=== PATIENT | male | born 1935 | race Two or more races ===

== ENCOUNTER 2016-09-19 09:32 | Emergency (ER) | payer MEDICARE ==
[2016-09-19] MEDS ORDERED: SODIUM CHLORIDE 0.9% 500 ML IV STA (10:38)
[2016-09-19] MEDS ORDERED: ONDANSETRON 4 MG/2 ML VIAL IVP STA (10:38)
[2016-09-19] MEDS ORDERED: PANTOPRAZOLE 40 MG/10 ML VIAL IVP STA (10:38)
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
[2016-09-19 11:01] LABS: Basophils % (A) 0 %; CH 31.1; CHCM 33.7; Eosinophils % (A) 0 %; HCT 36.6 % (39.0-53.0); HDW 2.54; HGB 12.3 gm/dL (13.0-17.5); Luc # (Auto) 0.05; Luc % (Auto) 1; Lymphocytes # (A) 0.5 k/uL (1.0-4.8); Lymphocytes % (A) 11 %; MCH 31.1 pg (25.0-35.0); MCHC 33.6 g/dL (31.0-37.0); MCV 92.5 fL (80.0-100.0); Mean Platelet Volume 6.7; Monocytes # (A) 0.3 k/uL (0-1.0); Monocytes % (A) 6 %; Neutrophils # (A) 4.1 k/uL (1.3-7.7); Neutrophils % (A) 82 %; RBC 3.96 m/uL (4.30-5.90); RDW 13.1 % (11.5-15.5); WBC (Perox) 5.41
[2016-09-19 11:05] LABS: Appearance,Urine Cloudy (Clear); Bacteria,Urine Moderate /hpf; Bilirubin,Urine Negative (Negative); Glucose,Urine (UA) Negative (Negative); Ketones,Urine Negative (Negative); Leukocyte Esterase,Urine Large (Negative); Mucus,Urine Rare /hpf; Nitrite,Urine Negative (Negative); Particle Count 87741; Protein,Urine Negative (Negative); RBC,Urine 2 /hpf (0-5); Specific Gravity,Urine 1.014 (1.001-1.035); Squamous Epithelial Cell,Urine 2 /hpf (0-4); UA Billing (MACRO vs. MICRO) MICRO; WBC,Urine 29 /hpf (0-5)
--- NOTE | 2016-09-19 11:05 | XR ---
EXAMINATION TYPE: XR abdomen 2V DATE OF EXAM: 09/19/2016 10:58 AM COMPARISON: NONE HISTORY: Mid abdominal pain TECHNIQUE: Single supine KUB image of the abdomen is obtained. FINDINGS: The osseous structures are intact. The bowel gas pattern is nonspecific. Hypertrophic change of the spine noted. Subsegmental changes at both lung bases. IMPRESSION: 1. Nonspecific abdomen. 2. Left basilar atelectasis or infiltrate. Possible underlying nodule.
[2016-09-19 11:09] LABS: ALT 252 U/L (21-72); AST 293 U/L (17-59); Alkaline Phosphatase 158 U/L (38-126); Amylase 48 U/L (30-110); Anion Gap 11 mmol/L; Blood Urea Nitrogen 19 mg/dL (9-20); Calcium 9.4 mg/dL (8.4-10.2); Carbon Dioxide 31 mmol/L (22-30); Chloride 100 mmol/L (98-107); Glucose 135 mg/dL (74-99); Non-African American GFR(MDRD) >60 (>60 ml/min/1.73 sqM); Potassium 4.1 mmol/L (3.5-5.1); Sodium 142 mmol/L (137-145); Total Bilirubin 3.2 mg/dL (0.2-1.3); Total Protein 7.1 g/dL (6.3-8.2)
--- NOTE | 2016-09-19 11:42 | XR ---
EXAMINATION TYPE: XR chest 2V DATE OF EXAM: 09/19/2016 11:27 AM COMPARISON: NONE HISTORY: Pain FINDINGS: There is a 3 cm mass in the left lower lobe with left lower lobe subsegmental consolidation and small effusion. Cardiomegaly noted. No pneumothorax or interstitial edema. Arthropathy of the shoulders. Degenerative hypertrophic change of the spine. IMPRESSION: 1. 3 cm left lower lobe lung mass 2. Left lower lobe infiltrate or atelectasis.
[2016-09-19] MEDS ORDERED: HYDROmorphone 1 MG/ML 1 ML SYRINGE IVP STA (12:28)
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
[2016-09-19 13:23] VITALS: BP 124/78; PULSE 66; RESP 18; TEMP 98.8
[2016-09-20 11:17] LABS: Cholesterol 147 mg/dL (<200); HDL Cholesterol 68 mg/dL (40-60); Triglycerides 37 mg/dL (<150)
[2016-09-20 11:48] LABS: Prostate Specific Antigen 8.37 ng/mL (0.00-4.00)
[2016-09-20 13:01] LABS: Hemoglobin A1C 5.5 % (4.2-6.1)
== END 2016-09-19 13:30 | disposition home or self-care (01) ==
LOC: EC 09:32
DX: R91.8 Other nonspecific abnormal finding of lung field (principal); D49.511 Neoplasm of unspecified behavior of right kidney; Z79.899 Other long term (current) drug therapy; Z91.040 Latex allergy status; Z87.891 Personal history of nicotine dependence; N42.9 Disorder of prostate, unspecified; I51.89 Other ill-defined heart diseases; Z87.442 Personal history of urinary calculi; R74.8 Abnormal levels of other serum enzymes
CPT/HCPCS: 96374; 96375 ×2; 99284; 36415; 84153; 80061; 80053; 82150; 83036; 83605; 83690; 85025; 81001; 87086; 87077; 87186; 71020; 74020; 76705; J2405; J1170; C9113

== ENCOUNTER → 2016-10-28 | Outpatient (CLI) | payer MEDICARE ==
[2016-10-28 10:31] LABS: ALT 25 U/L (21-72); AST 21 U/L (17-59); Alkaline Phosphatase 68 U/L (38-126); Anion Gap 11 mmol/L; Blood Urea Nitrogen 25 mg/dL (9-20); Calcium 9.1 mg/dL (8.4-10.2); Carbon Dioxide 27 mmol/L (22-30); Chloride 104 mmol/L (98-107); Glucose 101 mg/dL (74-99); Non-African American GFR(MDRD) >60 (>60 ml/min/1.73 sqM); Potassium 4.2 mmol/L (3.5-5.1); Sodium 142 mmol/L (137-145); Total Bilirubin 1.2 mg/dL (0.2-1.3); Total Protein 7.3 g/dL (6.3-8.2)
== END | disposition home or self-care (01) ==
LOC: LABWHC1 09:35
PROVIDERS: ATTEND Family Medicine
DX: R73.01 Impaired fasting glucose (principal); R94.5 Abnormal results of liver function studies
CPT/HCPCS: 36415; 80053; 83036

== ENCOUNTER → 2017-01-06 | Outpatient (CLI) | payer MEDICARE ==
[2017-01-06 10:53] LABS: ALT 26 U/L (21-72); AST 22 U/L (17-59); Alkaline Phosphatase 59 U/L (38-126); Anion Gap 9 mmol/L; Bilirubin, Delta 0.4 mg/dL (0.0-0.2); Blood Urea Nitrogen 27 mg/dL (9-20); Calcium 9.5 mg/dL (8.4-10.2); Carbon Dioxide 27 mmol/L (22-30); Chloride 106 mmol/L (98-107); Glucose 99 mg/dL (74-99); Non-African American GFR(MDRD) >60 (>60 ml/min/1.73 sqM); Potassium 4.9 mmol/L (3.5-5.1); Sodium 142 mmol/L (137-145); Total Bilirubin 1.3 mg/dL (0.2-1.3); Total Protein 7.4 g/dL (6.3-8.2)
[2017-01-06 13:13] LABS: Hemoglobin A1C 5.9 % (4.2-6.1)
== END | disposition home or self-care (01) ==
LOC: LABWHC1 09:18
PROVIDERS: ATTEND Family Medicine
DX: R73.01 Impaired fasting glucose (principal); R94.5 Abnormal results of liver function studies
CPT/HCPCS: 36415; 80048; 80076; 83036

== ENCOUNTER 2017-07-19 09:44 | Inpatient (IN) | payer MEDICARE ==
[2017-07-19] MEDS ORDERED: SODIUM CHLORIDE 0.9% 1,000 ML IV STA (10:34)
[2017-07-19] MEDS ORDERED: VANCOMYCIN IV PER PHARMACY 1 EACH MISC MISCELLANE PRN (10:42)
[2017-07-19] MEDS ORDERED: VANCOMYCIN 1,500 MG in SODIUM CHLORIDE 0.9% 250 ML IVPB ONE (11:00)
[2017-07-19] MEDS ORDERED: ONDANSETRON 4 MG/2 ML VIAL IVP STA (11:22)
[2017-07-19] MEDS ORDERED: HYDROmorphone 1 MG/ML 1 ML SYRINGE IVP STA (11:22)
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
--- NOTE | 2017-07-19 11:22 | XR ---
EXAMINATION TYPE: XR chest 2V DATE OF EXAM: 07/19/2017 COMPARISON: Chest x-ray September 19, 2016 HISTORY: Leg edema per order. TECHNIQUE: Frontal and lateral views of the chest are obtained. FINDINGS: There is stable 3 cm left lingular round mass. There is new small right pleural effusion an d associated right basilar atelectasis and/or infiltrate. The cardiac silhouette size is stable and upper limits of normal. 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 IMPRESSION: New small right pleural effusion and associated right basilar atelectasis and/or infiltr ate. Stable 3 cm lingular round mass.
[2017-07-19 11:34] LABS: Calcium 8.5 mg/dL (8.4-10.2); Total Bilirubin 0.4 mg/dL (0.2-1.3); Total Protein 5.3 g/dL (6.3-8.2)
[2017-07-19 11:37] LABS: Basophils % (A) 0 %; CH 30.9; CHCM 30.6; Eosinophils # (A) 0.4 k/uL (0-0.7); Eosinophils % (A) 3 %; HCT 22.9 % (39.0-53.0); HDW 2.75; Hypochromasia Moderate; Luc # (Auto) 0.46; Luc % (Auto) 4; Lymphocytes % (A) 8 %; MCH 30.8 pg (25.0-35.0); MCHC 30.3 g/dL (31.0-37.0); MCV 101.9 fL (80.0-100.0); Macrocytosis Slight; Mean Platelet Volume 6.9; Monocytes # (A) 0.8 k/uL (0-1.0); Monocytes % (A) 7 %; Neutrophils # (A) 9.8 k/uL (1.3-7.7); Neutrophils % (A) 78 %; RBC 2.25 m/uL (4.30-5.90); WBC 12.5 k/uL (3.8-10.6); WBC (Perox) 12.65
[2017-07-19 11:44] LABS: Potassium 6.3 mmol/L (3.5-5.1)
[2017-07-19 11:45] LABS: HGB 6.9 gm/dL (13.0-17.5)
[2017-07-19] MEDS ORDERED: INSULIN REGULAR 100 UNIT/ML VIAL IV ONE ×3 (11:47→23:02)
[2017-07-19] MEDS ORDERED: DEXTROSE 50%-WATER 50 ML SYRINGE IVP STA ×2 (11:47→18:51)
[2017-07-19] MEDS ORDERED: NALOXONE 0.4 MG/ML 1 ML VIAL IV PRN (11:59)
[2017-07-19] MEDS ORDERED: ONDANSETRON 4 MG/2 ML VIAL IVP PRN (11:59)
[2017-07-19] MEDS ORDERED: HYDROmorphone 0.5 MG/0.5 ML SYRINGE IVP PRN (11:59)
[2017-07-19] MEDS ORDERED: CALCIUM GLUCONATE 1,000 MG in SODIUM CHLORIDE 0.9% 100 ML IVPB ONE ×3 (12:00→23:30)
[2017-07-19 14:21] LABS: Appearance,Urine Clear (Clear); Bilirubin,Urine Negative (Negative); Glucose,Urine (UA) Negative (Negative); Ketones,Urine Negative (Negative); Leukocyte Esterase,Urine Negative (Negative); Mucus,Urine Rare /hpf; Nitrite,Urine Negative (Negative); Particle Count 890; Protein,Urine Negative (Negative); RBC,Urine 50 /hpf (0-5); Specific Gravity,Urine 1.011 (1.001-1.035); Squamous Epithelial Cell,Urine <1 /hpf (0-4); UA Billing (MACRO vs. MICRO) MICRO; Urobilinogen,Urine <2.0 mg/dL (<2.0); WBC,Urine 2 /hpf (0-5)
[2017-07-19] MEDS ORDERED: IPRATROPIUM-ALBUTEROL 3 ML NEB INHALATION PRN (14:35)
[2017-07-19] MEDS: IPRATROPIUM-ALBUTEROL 3 ML NEB INHALATION SCH ×2 (15:19→19:28)
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
--- NOTE | 2017-07-19 15:42 | US ---
EXAMINATION TYPE: US kidneys/renal and bladder DATE OF EXAM: 07/19/2017 COMPARISON: CLINICAL HISTORY: renee. elevated labs. poor historian. EXAM MEASUREMENTS: Right Kidney: 13.9 x 6.2 x 6.4 cm Left Kidney: 12.8 x 5.5 x 6.6 cm Right Kidney: Enlarged. Mid/lower pole complex vascular lesion seen in anterior cortical region = 5.9 x 6.5 x 5.8 cm. Mid simple cystic appearing lesion = 1.1 cm Left Kidney: Slightly enlarged. Multiple simple cystic appearing lesions seen in renal cortex. Large st measured: 1= 1.8 cm 2= 2.6 cm. Possible cortical thinning. Bladder: echogenic focus with shadow seen in posterior bladder = 2.4 cm Right Jets seen Incidental finding: Enlarged prostate = 5.6 x 5.7 x 4.4 cm IMPRESSION: 1. Redemonstration of a complex right renal mass measuring up to 6.5 cm that is highly suspicious for renal cell carcinoma. This is enlarged from the prior exam of 09/19/2016. Again percutaneous biopsy or dynamic contrast-enhanced CT is recommended for further evaluation. 2. Multiple probable right renal cysts. 3. 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 A [place] message has been communicated to Sweta Daily via the [employer] Critical Result system on 07/19/2017 3:39 PM, Message ID [id number].
[2017-07-19] MEDS ORDERED: CARVEDILOL 12.5 MG TAB PO SCH (17:30)
[2017-07-19] MEDS ORDERED: RIVAROXABAN 10 MG TAB PO SCH (17:30)
[2017-07-19 18:27] LABS: Anisocytosis Slight; CH 29.4; CHCM 29.9; HDW 2.86; Hypochromasia Marked; MCH 30.9 pg (25.0-35.0); MCHC 31.1 g/dL (31.0-37.0); MCV 99.2 fL (80.0-100.0); Macrocytosis Slight; Mean Platelet Volume 7.9; RBC 1.97 m/uL (4.30-5.90); RDW 16.8 % (11.5-15.5); WBC 11.1 k/uL (3.8-10.6)
[2017-07-19 18:28] LABS: HGB 6.1 gm/dL (13.0-17.5)
[2017-07-19 18:29] LABS: HCT 19.5 % (39.0-53.0)
[2017-07-19] MEDS: METOPROLOL TARTRATE 25 MG TAB PO SCH (20:49)
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
[2017-07-19 22:10] LABS: Anisocytosis Slight; Aty Lym Flag Slight; CH 29.8; CHCM 30.1; HCT 20.7 % (39.0-53.0); HDW 3.14; Hypochromasia Marked; MCH 30.5 pg (25.0-35.0); MCHC 30.5 g/dL (31.0-37.0); MCV 100.2 fL (80.0-100.0); Macrocytosis Slight; RBC 2.07 m/uL (4.30-5.90); RDW 17.5 % (11.5-15.5); WBC 12.6 k/uL (3.8-10.6); WBC (Perox) 13.62
[2017-07-19 22:27] LABS: Calcium 8.3 mg/dL (8.4-10.2); Total Bilirubin 0.6 mg/dL (0.2-1.3); Total Protein 4.7 g/dL (6.3-8.2)
[2017-07-19 22:37] LABS: HGB 6.3 gm/dL (13.0-17.5)
[2017-07-19 22:42] LABS: Potassium 6.9 mmol/L (3.5-5.1)
[2017-07-19 22:53] LABS: Add Differential Manual Differential
[2017-07-19 22:55] LABS: Band Neutrophils % 2 %; Manual Review Performed; Nucleated Red Blood Cells 0 /100 WBC (0-0); Total Cells Counted 100
[2017-07-19] MEDS ORDERED: SODIUM POLYSTYRENE SULFONATE 15 GM/60 ML BOTTLE PO STA (23:01)
[2017-07-19] MEDS ORDERED: DEXTROSE 50%-WATER 50 ML SYRINGE IVP ONE (23:02)
[2017-07-19] MEDS ORDERED: SODIUM BICARB 8.4% 50 ML SYR (1 MEQ/ML) IV ONE (23:02)
[2017-07-19 23:44] LABS: Glucose,Whole Blood 101 mg/dL (75-99)
[2017-07-19] MEDS ORDERED: FUROSEMIDE 10 MG/ML 2 ML VIAL IV STA (23:54)
[2017-07-20 04:13] LABS: Anisocytosis Slight; Aty Lym Flag Slight; CH 29.7; CHCM 31.1; HCT 23.6 % (39.0-53.0); HDW 3.27; HGB 7.4 gm/dL (13.0-17.5); Hypochromasia Moderate; MCH 30.4 pg (25.0-35.0); MCHC 31.5 g/dL (31.0-37.0); MCV 96.6 fL (80.0-100.0); Macrocytosis Slight; Mean Platelet Volume 7.7; RBC 2.44 m/uL (4.30-5.90); RDW 17.3 % (11.5-15.5); WBC 13.7 k/uL (3.8-10.6); WBC (Perox) 14.39
[2017-07-20 04:32] LABS: Add Differential Manual Differential
[2017-07-20 04:36] LABS: Band Neutrophils % 3 %; Manual Review Performed; Metamyelocytes % 3 %; Nucleated Red Blood Cells 0 /100 WBC (0-0); Total Cells Counted 200
[2017-07-20 04:37] LABS: Polychromasia Present
[2017-07-20 06:07] LABS: Total Protein 5.5 g/dL (6.3-8.2)
[2017-07-20 06:16] LABS: Potassium 6.3 mmol/L (3.5-5.1)
[2017-07-20] MEDS ORDERED: SODIUM POLYSTYRENE SULFONATE 15 GM/60 ML BOTTLE PO STA (07:41)
[2017-07-20] MEDS ORDERED: FUROSEMIDE 10 MG/ML 4 ML VIAL IV STA (07:41)
[2017-07-20] MEDS: HYDROcodone/APAP 5-325MG 1 EACH TAB PO PRN (08:45)
[2017-07-20] MEDS: METOPROLOL TARTRATE 25 MG TAB PO SCH ×2 (08:45→21:43)
[2017-07-20] MEDS: TAMSULOSIN 0.4 MG CAP.ER.24H PO SCH (08:45)
[2017-07-20] MEDS ORDERED: VANCOMYCIN 1,500 MG in SODIUM CHLORIDE 0.9% 250 ML IVPB ONE (09:00)
[2017-07-20] MEDS ORDERED: FAMOTIDINE 20 MG TAB PO SCH (09:00)
[2017-07-20] MEDS: IPRATROPIUM-ALBUTEROL 3 ML NEB INHALATION SCH ×4 (09:02→20:10)
[2017-07-20] MEDS: VANCOMYCIN 1,500 MG in SODIUM CHLORIDE 0.9% 250 ML IVPB SCH (09:15)
--- NOTE | 2017-07-20 10:45 | US ---
EXAMINATION TYPE: US venous doppler duplex LE LT DATE OF EXAM: 07/20/2017 10:25 AM COMPARISON: NONE CLINICAL HISTORY: Deep venous thrombosis left leg. SIDE PERFORMED: left TECHNIQUE: The lower extremity deep venous system is examined utilizing real time linear array sonog diogenes with graded compression, doppler sonography and color-flow sonography. VESSELS IMAGED: External Iliac Vein (EIV) Common Femoral Vein Deep Femoral Vein Greater Saphenous Vein * Femoral Vein Popliteal Vein Small Saphenous Vein * Proximal Calf Veins (* superficial vessels) Patient spoke no Guyanese, incoherent, unable to cooperate with examiner, moving during test. Very ralph hnically difficult study. Left Leg: Positive for DVT. FARA Benjamin given preliminary at 10:30. Non-occluding thrombus in femoral v., anterior branch of proximal calf vein occluded. Examiner unable to scan contralateral leg for comparison picture due to patient being more uncooperat cesario. Suboptimal study but there is partial occlusive thrombus beginning in the proximal superficial femora l vein extending into mid and distal superficial femoral vein with incomplete compressibility identif ied. Prominent but benign-appearing left groin lymph node is marked by technologist IMPRESSION: Suboptimal study but partial occlusive thrombus in the left superficial femoral vein is i dentified.
--- NOTE | 2017-07-20 11:55 | CONS ---
CONSULTATION REASON FOR CONSULT: Renal failure. HISTORY OF PRESENT ILLNESS: The patient is an 81-year-old male who speaks Estonian. He was admitted to the hospital with pain and drainage from his left lower extremity. He has significant wounds in his left leg and is maintained on antibiotics. The patient does not speak Greenlandic. Therefore, most of the history is obtained from chart review. His serum creatinine was 2.74 mg/dL yesterday. It is today down to 1.9, and review of previous labs shows a creatinine of 1.06 in December of 2016. The patient currently has a Thomason catheter and 600 mL of urine was obtained on initial Thomason placement. His potassium was elevated at 6.9, it has been down to 6.3. He has had multiple doses of Kayexalate. Hemoglobin was also low at 6.1 on initial admission. Patient has received packed RBCs. No active bleeding is noted. However, the stool may have been dark according to nursing staff. The patient also has a large complex renal mass about 6.5 cm. Suspicion is suspicious for renal cell carcinoma and this is larger as compared to the previous ultrasound in September of 2016. Urology consult is pending. PAST MEDICAL HISTORY: Hypertension, BPH, history of DVT and kidney stones. PAST SURGICAL HISTORY: Abdominal surgery, details not available. SOCIAL HISTORY: Patient is an ex-smoker. No history of drug abuse or alcohol abuse. ALLERGIES: Include ASPIRIN, CIPRO, LATEX, NITROFURANTOIN. MEDICATIONS: Medications at home prior to admission include Cozaar, Flomax, Coreg, Voltaren, Xarelto. EXAMINATION: Patient is currently comfortable. He is awake. He is not in any acute distress. Blood pressure is 126/66, heart rate 109 per minute. Patient is afebrile. Examination of the heart: S1, S2. Examination lungs: Bilateral breath sounds are heard. Abdomen is soft, nontender. Examination lower extremities shows bilateral extremities to be wrapped. LAB: Show sodium 146, potassium 6.3, chloride 117, CO2 17, BUN 121, serum creatinine 1.9, hemoglobin 7.4 g/dL. UA shows moderate blood, RBCs 50, random urine sodium was 71. ASSESSMENT: 1. Acute kidney injury, most likely acute tubular necrosis with an element of urine retention, currently with indwelling Thomason catheter with some improvement in renal function. Patient was maintained on IV fluids. Currently, he is off of fluids. He has not been eating much. Previous creatinine was 1.0 in December of 2016. Continue to maintain patient off of angiotensin receptor blockers and avoid hypotension and maintain indwelling Thomason catheter for now. 2. Hyperkalemia associated with acute kidney injury as well as possible gastrointestinal bleed. Hemoglobin was significantly low on admission. I will try to hold off on more Kayexalate given the possibility of gastrointestinal bleed. I will start oral sodium bicarb, which should help with the hyperkalemia with treatment of metabolic acidosis. The patient has received Lasix and his potassium has improved. We will repeat electrolytes in about 3-4 hours. 3. Left lower extremity wounds, maintained on Rocephin and Vanco, being seen by ID. 4. Right renal mass highly suspicious for malignancy. Urology consult is pending. PLAN: Continue indwelling Thomason catheter. Repeat electrolytes and check stool for occult blood. I will try to avoid Kayexalate given the possible gastrointestinal bleed. Await urology input. Currently, patient is too weak for any major surgery. Thank you for this consultation. We will continue to follow the patient with you during his hospitalization. MMODL / IJN: [id number] /
[2017-07-20 12:00] LABS: Anisocytosis Slight; Basophils % (A) 0 %; CH 29.7; CHCM 30.5; Eosinophils # (A) 0.3 k/uL (0-0.7); Eosinophils % (A) 2 %; HCT 24.1 % (39.0-53.0); HDW 3.29; HGB 7.3 gm/dL (13.0-17.5); Hypochromasia Marked; Luc % (Auto) 4; Lymphocytes # (A) 1.5 k/uL (1.0-4.8); Lymphocytes % (A) 11 %; MCH 29.8 pg (25.0-35.0); MCHC 30.2 g/dL (31.0-37.0); MCV 98.5 fL (80.0-100.0); Macrocytosis Slight; Monocytes # (A) 0.8 k/uL (0-1.0); Monocytes % (A) 6 %; Neutrophils # (A) 10.6 k/uL (1.3-7.7); Neutrophils % (A) 78 %; RBC 2.44 m/uL (4.30-5.90); RDW 17.6 % (11.5-15.5); WBC 13.7 k/uL (3.8-10.6); WBC (Perox) 14.67
[2017-07-20 12:10] LABS: Calcium 8.9 mg/dL (8.4-10.2); Potassium 5.4 mmol/L (3.5-5.1); Total Bilirubin 0.8 mg/dL (0.2-1.3); Total Protein 5.5 g/dL (6.3-8.2)
--- NOTE | 2017-07-20 13:49 | XR ---
EXAMINATION TYPE: XR chest 1V DATE OF EXAM: 07/20/2017 CLINICAL HISTORY: Difficulty breathing and pulmonary edema progress study. TECHNIQUE: Single AP portable upright view of the chest is obtained. COMPARISON: Chest x-ray from one day earlier FINDINGS: Osseous structures remain demineralized. High riding humeral heads bilaterally consistent with chronic rotator cuff tears is redemonstrated. Cardiac silhouette size is stable and within luli l limits. There is chronic emphysematous change with persistent patchy bibasilar atelectasis and/or i nfiltrate. There is suspected interval improvement in small right pleural effusion. The 3 cm lingular mass is less well-seen on current study IMPRESSION: Persistent patchy bibasilar infiltrate and/or atelectasis. Interval resolution of small r ight pleural effusion.
--- NOTE | 2017-07-20 15:13 | P.PN ---
Subjective patient has multiple medical issues going on at this point of time and patient was a valid by multiple medical physicians. Patient was initially admitted verified lower limb cellulitis left lower limb , patient later had Doppler of the left lower extremity which showed a DVT, patient was already on 0 alto which is being held because of her dark stools. Patient was started on Protonix gastric body was consulted infectious disease and nephrology evaluated the patient. Patient is also found to haveright renal mass on the ultrasound of the abdomen and bladder, walk worse compared to last hospitalization her last ultrasound,oncology was consulted. Patient's anti-correlation is on hold. Patient's IV fluids were discontinued as patient had issues with shortness of breath and crackles on lung exam did obtain a chest x-ray probably will need an echocardiogram as well.I was able to come in again with the patient weight via business solutions analyst Constitutional: Denied any fatigue denied any fever. Cardio vascular: denied any chest pain, palpitations Gastrointestinal denied any nausea vomiting Pulmonary: Denied any shortness of breath cough Neurologic denied any new focal deficits Objective - Vital Signs Vital signs: Vital Signs Temp 97.6 F 07/20/17 12:00 Pulse 92 07/20/17 13:05 Resp 18 07/20/17 12:00 BP 116/74 07/20/17 12:00 Pulse Ox 100 07/20/17 12:00 Intake & Output 07/19/17 07/20/17 07/20/17 18:59 06:59 18:59 Intake Total 1396 1080 Output Total 1500 5780 2300 Balance -104 -5780 -1220 Weight 83.915 kg 77.2 kg Intake: Intake, IV Titration 850 300 Amount Sodium Chloride 0.9% 1, 600 000 ml @ 100 mls/hr IV . Q10H STA Rx#:[id number] Vancomycin 1,500 mg In 250 Sodium Chloride 0.9% 250 ml @ 125 mls/hr IVPB ONCE ONE Rx#:[id number] Vancomycin 1,500 mg In 250 Sodium Chloride 0.9% 250 ml @ 125 mls/hr IVPB Q24H SOL Rx#:[id number] cefTRIAXone 1,000 mg In 50 Sodium Chloride 0.9% 50 ml @ 100 mls/hr IVPB HS SOL Rx#:[id number] Oral 236 780 Blood Product 310 Rc As-1 Unit 310 [id number] Output: Urine 1500 5280 2300 Uretheral (Thomason) 600 2300 Post Void Residual 500 Other: Voiding Method Urinal Indwelling Catheter Indwelling Catheter # Voids 1 1 # Bowel Movements 1 - Exam GENERAL: The patient is alert and oriented x3, not in any acute distress. Well developed, well nourished. HEENT: Pupils are round and equally reacting to light. EOMI. No scleral icterus. No conjunctival pallor. Normocephalic, atraumatic. No pharyngeal erythema. No thyromegaly. CARDIOVASCULAR: S1 and S2 present. No murmurs, rubs, or gallops. PULMONARY: Rhonchus breath sounds significant expiratory wheezing was appreciated ABDOMEN: Soft, nontender, nondistended, normoactive bowel sounds. No palpable organomegaly. MUSCULOSKELETAL: No joint swelling or deformity. EXTREMITIES: No cyanosis, clubbing, or pedal edema. NEUROLOGICAL: Gross neurological examination did not reveal any focal deficits. SKIN: The latest of the left leg with skin breakdowns and previous bullous lesions significant redness extending almost up to the knee - Labs CBC & Chem 7: 07/20/17 11:44 07/20/17 11:44 Labs: Abnormal Lab Results - Last 24 Hours (Table) 07/19/17 07/19/17 07/19/17 Range/Units 12:15 18:01 18:01 WBC 11.1 H (3.8-10.6) k/uL RBC 1.97 L (4.30-5.90) m/uL Hgb 6.1 L* (13.0-17.5) gm/dL Hct 19.5 L* (39.0-53.0) % MCV (80.0-100.0) fL MCHC (31.0-37.0) g/dL RDW 16.8 H (11.5-15.5) % Neutrophils # (1.3-7.7) k/uL Neutrophils # (Manual) (1.3-7.7) k/uL Metamyelocytes # (Man) (0) k/uL Sodium (137-145) mmol/L Potassium (3.5-5.1) mmol/L Chloride (98-107) mmol/L Carbon Dioxide (22-30) mmol/L BUN (9-20) mg/dL Creatinine (0.66-1.25) mg/dL Glucose (74-99) mg/dL POC Glucose (mg/dL) (75-99) mg/dL Calcium (8.4-10.2) mg/dL Total Protein (6.3-8.2) g/dL Albumin (3.5-5.0) g/dL Vitamin B12 1232.0 H (200.0-944.0) pg/mL Crossmatch See Detail 07/19/17 07/19/17 07/19/17 Range/Units 18:01 21:57 21:57 WBC 12.6 H (3.8-10.6) k/uL RBC 2.07 L (4.30-5.90) m/uL Hgb 6.3 L* (13.0-17.5) gm/dL Hct 20.7 L (39.0-53.0) % MCV 100.2 H (80.0-100.0) fL MCHC 30.5 L (31.0-37.0) g/dL RDW 17.5 H (11.5-15.5) % Neutrophils # (1.3-7.7) k/uL Neutrophils # (Manual) 10.20 H (1.3-7.7) k/uL Metamyelocytes # (Man) (0) k/uL Sodium (137-145) mmol/L Potassium 6.8 H* 6.9 H* (3.5-5.1) mmol/L Chloride 118 H (98-107) mmol/L Carbon Dioxide 17 L (22-30) mmol/L BUN 120 H* (9-20) mg/dL Creatinine 2.10 H (0.66-1.25) mg/dL Glucose 69 L (74-99) mg/dL POC Glucose (mg/dL) (75-99) mg/dL Calcium 8.3 L (8.4-10.2) mg/dL Total Protein 4.7 L (6.3-8.2) g/dL Albumin 2.2 L (3.5-5.0) g/dL Vitamin B12 (200.0-944.0) pg/mL Crossmatch 07/19/17 07/20/17 07/20/17 Range/Units 23:43 03:54 03:54 WBC 13.7 H (3.8-10.6) k/uL RBC 2.44 L (4.30-5.90) m/uL Hgb 7.4 L (13.0-17.5) gm/dL Hct 23.6 L (39.0-53.0) % MCV (80.0-100.0) fL MCHC (31.0-37.0) g/dL RDW 17.3 H (11.5-15.5) % Neutrophils # (1.3-7.7) k/uL Neutrophils # (Manual) 10.20 H (1.3-7.7) k/uL Metamyelocytes # (Man) 0.41 H (0) k/uL Sodium 146 H (137-145) mmol/L Potassium 6.3 H* (3.5-5.1) mmol/L Chloride 117 H (98-107) mmol/L Carbon Dioxide 17 L (22-30) mmol/L BUN 121 H* (9-20) mg/dL Creatinine 1.90 H (0.66-1.25) mg/dL Glucose (74-99) mg/dL POC Glucose (mg/dL) 101 H (75-99) mg/dL Calcium (8.4-10.2) mg/dL Total Protein 5.5 L (6.3-8.2) g/dL Albumin 2.7 L (3.5-5.0) g/dL Vitamin B12 (200.0-944.0) pg/mL Crossmatch 07/20/17 07/20/17 Range/Units 11:44 11:44 WBC 13.7 H (3.8-10.6) k/uL RBC 2.44 L (4.30-5.90) m/uL Hgb 7.3 L (13.0-17.5) gm/dL Hct 24.1 L (39.0-53.0) % MCV (80.0-100.0) fL MCHC 30.2 L (31.0-37.0) g/dL RDW 17.6 H (11.5-15.5) % Neutrophils # 10.6 H (1.3-7.7) k/uL Neutrophils # (Manual) (1.3-7.7) k/uL Metamyelocytes # (Man) (0) k/uL Sodium 147 H (137-145) mmol/L Potassium 5.4 H (3.5-5.1) mmol/L Chloride 114 H (98-107) mmol/L Carbon Dioxide 21 L (22-30) mmol/L BUN 108 H* (9-20) mg/dL Creatinine 1.70 H (0.66-1.25) mg/dL Glucose 130 H (74-99) mg/dL POC Glucose (mg/dL) (75-99) mg/dL Calcium (8.4-10.2) mg/dL Total Protein 5.5 L (6.3-8.2) g/dL Albumin 2.8 L (3.5-5.0) g/dL Vitamin B12 (200.0-944.0) pg/mL Crossmatch Microbiology - Last 24 Hours (Table) 07/19/17 10:55 Blood Culture - Preliminary Blood No Growth after 24 hours 07/19/17 10:55 Gram Stain - Preliminary Leg - Left Wound Culture - Preliminary 07/19/17 13:33 Urine Culture - Preliminary Urine,Clean Catch Assessment and Plan Plan: #1 left lower limbs allied his: Possibility of sepsis from that and the patient will be is on IV vancomycin. #2 right lower lobe pneumonia for which patient was started on Rocephin there is a possibility that patient has pneumonia. #3 COPD with acute exacerbation #4 anemia, chronic and macrocytic, IV blood transfusion 1 unit and further evaluation as mentioned above #5 hypertension: Patient is presently hypotensive due to intravascular depletion or sepsis. #6 hyperkalemia: Secondary to lisinopril and intravascular depletion kidney dysfunction. Patient was given Kayexalate, IV insulin and calcium gluconate we' ll repeat the electrolytes #7 acute renal dysfunction most probably prerenal Azotemia , patient had issues with pulmonary edema yesterday because of which IV fluids were discontinued and patient was given Lasix and nephrology is following the patient. #8 possible upper GI bleed with dark stools patient was started on Protonix gastro-oncology will be consulted. #9 DVT of the left femoral vein: Patient's anti-correlation is on hold because of possibly of GI bleed
[2017-07-20] MEDS ORDERED: RIVAROXABAN 15 MG TAB PO SCH (17:30)
[2017-07-20] MEDS: PANTOPRAZOLE 40 MG/10 ML VIAL IVP SCH ×2 (18:33→21:43)
--- NOTE | 2017-07-20 21:37 | P.PN ---
Subjective Progress Note Date: 07/20/17 Principal diagnosis: left leg pain 81-year-old male resents the emergency center with complaints of wound into his left leg. The patient speaks Sudanese, if further information is coming from the chart at this time. As I enter the room the patient needs to urinate. He is given a urinal and probably urinates all over the floor and missed the urinal almost completely. To the patient's limited Khmer she relates that he does have pain in the left leg. Tableman was present today and patient does relate to pain to the left leg. Improved with the silvadene and wrap. Feels better today. Objective - Vital Signs Vital signs: Vital Signs Temp 98.9 F 07/20/17 16:00 Pulse 118 H 07/20/17 20:22 Resp 18 07/20/17 16:00 BP 126/62 07/20/17 16:00 Pulse Ox 99 07/20/17 16:00 Intake & Output 07/20/17 07/20/17 07/21/17 06:59 18:59 06:59 Intake Total 1080 100 Output Total 5780 4600 Balance -5780 -3520 100 Weight 77.2 kg Intake: Intake, IV Titration 300 Amount Vancomycin 1,500 mg In 250 Sodium Chloride 0.9% 250 ml @ 125 mls/hr IVPB Q24H SOL Rx#:[id number] cefTRIAXone 1,000 mg In 50 Sodium Chloride 0.9% 50 ml @ 100 mls/hr IVPB HS SOL Rx#:[id number] Oral 780 100 Output: Urine 5280 4600 Uretheral (Thomason) 600 3600 Post Void Residual 500 Other: Voiding Method Indwelling Catheter Indwelling Catheter # Voids 1 # Bowel Movements 1 - Exam 81-year-old male who seems to be comfortable. HEENT: Anicteric conjunctiva are pink and moist nasal mucosa grossly intact without significant lesions, there is no thrush. Poor dentition Neck: The neck is supple without significant lymphadenopathy or thyromegaly. Lungs: Good bilateral air entry without significant crackles scattered wheezes are heard. There is no significant bronchial sounds. There is no egophony or dullness. Heart: Irregular with an audible S1 and S2 soft S4. There is no significant murmur click or rub, PMI was nondisplaced. Abdomen: Positive bowel sounds soft and nontender without palpable masses or organomegaly. There was no guarding or rebound. Extremities: The upper extremities have excellent pulses they are symmetric, no significant petechiae or telangiectasia. No splinter hemorrhages were noted. The right lower extremity is intact. There are no open lesions. Left lower extremity reveals evidence of the extensive swelling from the foot to just below the knee. There is distinct discoloration. There appears to be a chronic ulceration to the lateral aspect of the ankle and of the lower leg. There is evidence of blistering and denuded skin around the anterior aspect of the lower leg in the calf area. It is tender. There has been some serous drainage Neuro: Awake alert cooperative, - Labs CBC & Chem 7: 07/20/17 11:44 07/20/17 11:44 Labs: Abnormal Lab Results - Last 24 Hours (Table) 07/19/17 07/19/17 07/19/17 Range/Units 18:01 21:57 21:57 WBC 12.6 H (3.8-10.6) k/uL RBC 2.07 L (4.30-5.90) m/uL Hgb 6.3 L* (13.0-17.5) gm/dL Hct 20.7 L (39.0-53.0) % MCV 100.2 H (80.0-100.0) fL MCHC 30.5 L (31.0-37.0) g/dL RDW 17.5 H (11.5-15.5) % Neutrophils # (1.3-7.7) k/uL Neutrophils # (Manual) 10.20 H (1.3-7.7) k/uL Metamyelocytes # (Man) (0) k/uL Sodium (137-145) mmol/L Potassium 6.9 H* (3.5-5.1) mmol/L Chloride 118 H (98-107) mmol/L Carbon Dioxide 17 L (22-30) mmol/L BUN 120 H* (9-20) mg/dL Creatinine 2.10 H (0.66-1.25) mg/dL Glucose 69 L (74-99) mg/dL POC Glucose (mg/dL) (75-99) mg/dL Calcium 8.3 L (8.4-10.2) mg/dL Total Protein 4.7 L (6.3-8.2) g/dL Albumin 2.2 L (3.5-5.0) g/dL Vitamin B12 1232.0 H (200.0-944.0) pg/mL 07/19/17 07/20/17 07/20/17 Range/Units 23:43 03:54 03:54 WBC 13.7 H (3.8-10.6) k/uL RBC 2.44 L (4.30-5.90) m/uL Hgb 7.4 L (13.0-17.5) gm/dL Hct 23.6 L (39.0-53.0) % MCV (80.0-100.0) fL MCHC (31.0-37.0) g/dL RDW 17.3 H (11.5-15.5) % Neutrophils # (1.3-7.7) k/uL Neutrophils # (Manual) 10.20 H (1.3-7.7) k/uL Metamyelocytes # (Man) 0.41 H (0) k/uL Sodium 146 H (137-145) mmol/L Potassium 6.3 H* (3.5-5.1) mmol/L Chloride 117 H (98-107) mmol/L Carbon Dioxide 17 L (22-30) mmol/L BUN 121 H* (9-20) mg/dL Creatinine 1.90 H (0.66-1.25) mg/dL Glucose (74-99) mg/dL POC Glucose (mg/dL) 101 H (75-99) mg/dL Calcium (8.4-10.2) mg/dL Total Protein 5.5 L (6.3-8.2) g/dL Albumin 2.7 L (3.5-5.0) g/dL Vitamin B12 (200.0-944.0) pg/mL 07/20/17 07/20/17 Range/Units 11:44 11:44 WBC 13.7 H (3.8-10.6) k/uL RBC 2.44 L (4.30-5.90) m/uL Hgb 7.3 L (13.0-17.5) gm/dL Hct 24.1 L (39.0-53.0) % MCV (80.0-100.0) fL MCHC 30.2 L (31.0-37.0) g/dL RDW 17.6 H (11.5-15.5) % Neutrophils # 10.6 H (1.3-7.7) k/uL Neutrophils # (Manual) (1.3-7.7) k/uL Metamyelocytes # (Man) (0) k/uL Sodium 147 H (137-145) mmol/L Potassium 5.4 H (3.5-5.1) mmol/L Chloride 114 H (98-107) mmol/L Carbon Dioxide 21 L (22-30) mmol/L BUN 108 H* (9-20) mg/dL Creatinine 1.70 H (0.66-1.25) mg/dL Glucose 130 H (74-99) mg/dL POC Glucose (mg/dL) (75-99) mg/dL Calcium (8.4-10.2) mg/dL Total Protein 5.5 L (6.3-8.2) g/dL Albumin 2.8 L (3.5-5.0) g/dL Vitamin B12 (200.0-944.0) pg/mL Microbiology - Last 24 Hours (Table) 07/19/17 13:33 Urine Culture - Final Urine,Clean Catch 07/19/17 10:55 Blood Culture - Preliminary Blood No Growth after 24 hours 07/19/17 10:55 Gram Stain - Preliminary Leg - Left Wound Culture - Preliminary Laboratory Results WBC 13.7 k/uL (3.8-10.6) H 07/20/17 11:44 RBC 2.44 m/uL (4.30-5.90) L 07/20/17 11:44 Hgb 7.3 gm/dL (13.0-17.5) L 07/20/17 11:44 Hct 24.1 % (39.0-53.0) L 07/20/17 11:44 MCV 98.5 fL (80.0-100.0) 07/20/17 11:44 MCH 29.8 pg (25.0-35.0) 07/20/17 11:44 MCHC 30.2 g/dL (31.0-37.0) L 07/20/17 11:44 RDW 17.6 % (11.5-15.5) H 07/20/17 11:44 Plt Count 198 k/uL (150-450) 07/20/17 11:44 Neutrophils % 78 % 07/20/17 11:44 Neutrophils % (Manual) 72 % 07/20/17 03:54 Band Neutrophils % 3 % 07/20/17 03:54 Lymphocytes % 11 % 07/20/17 11:44 Lymphocytes % (Manual) 12 % 07/20/17 03:54 Monocytes % 6 % 07/20/17 11:44 Monocytes % (Manual) 7 % 07/20/17 03:54 Eosinophils % 2 % 07/20/17 11:44 Eosinophils % (Manual) 3 % 07/20/17 03:54 Basophils % 0 % 07/20/17 11:44 Metamyelocytes % 3 % 07/20/17 03:54 Neutrophils # 10.6 k/uL (1.3-7.7) H 07/20/17 11:44 Neutrophils # (Manual) 10.20 k/uL (1.3-7.7) H 07/20/17 03:54 Lymphocytes # 1.5 k/uL (1.0-4.8) 07/20/17 11:44 Lymphocytes # (Manual) 1.64 k/uL (1.0-4.8) 07/20/17 03:54 Monocytes # 0.8 k/uL (0-1.0) 07/20/17 11:44 Monocytes # (Manual) 0.96 k/uL (0-1.0) 07/20/17 03:54 Eosinophils # 0.3 k/uL (0-0.7) 07/20/17 11:44 Eosinophils # (Manual) 0.41 k/uL (0-0.7) 07/20/17 03:54 Basophils # 0.0 k/uL (0-0.2) 07/20/17 11:44 Metamyelocytes # (Man) 0.41 k/uL (0) H 07/20/17 03:54 Nucleated RBCs 0 /100 WBC (0-0) 07/20/17 03:54 Manual Slide Review Performed 07/20/17 03:54 Polychromasia Present 07/20/17 03:54 Hypochromasia Marked 07/20/17 11:44 Anisocytosis Slight 07/20/17 11:44 Macrocytosis Slight 07/20/17 11:44 Sodium 147 mmol/L (137-145) H 07/20/17 11:44 Potassium 5.4 mmol/L (3.5-5.1) H 07/20/17 11:44 Chloride 114 mmol/L (98-107) H 07/20/17 11:44 Carbon Dioxide 21 mmol/L (22-30) L 07/20/17 11:44 Anion Gap 12 mmol/L 07/20/17 11:44 BUN 108 mg/dL (9-20) H* 07/20/17 11:44 Creatinine 1.70 mg/dL (0.66-1.25) H 07/20/17 11:44 Est GFR (MDRD) Af Amer 47 (>60 ml/min/1.73 sqM) 07/20/17 11:44 Est GFR (MDRD) Non-Af 39 (>60 ml/min/1.73 sqM) 07/20/17 11:44 Glucose 130 mg/dL (74-99) H 07/20/17 11:44 POC Glucose (mg/dL) 101 mg/dL (75-99) H 07/19/17 23:43 POC Glu Hairspring Setter ID Sandee Johnson 07/19/17 23:43 Calcium 8.9 mg/dL (8.4-10.2) 07/20/17 11:44 Ferritin 136.7 ng/mL (22.0-322.0) 07/19/17 18:01 Total Bilirubin 0.8 mg/dL (0.2-1.3) 07/20/17 11:44 AST 34 U/L (17-59) 07/20/17 11:44 ALT 41 U/L (21-72) 07/20/17 11:44 Alkaline Phosphatase 79 U/L (38-126) 07/20/17 11:44 NT-Pro-B Natriuret Pep 5130 pg/mL 07/19/17 10:55 Total Protein 5.5 g/dL (6.3-8.2) L 07/20/17 11:44 Albumin 2.8 g/dL (3.5-5.0) L 07/20/17 11:44 Vitamin B12 1232.0 pg/mL (200.0-944.0) H 07/19/17 18:01 Urine Color Light Yellow 07/19/17 13:33 Urine Appearance Clear (Clear) 07/19/17 13:33 Urine pH 5.0 (5.0-8.0) 07/19/17 13:33 Ur Specific Canones 1.011 (1.001-1.035) 07/19/17 13:33 Urine Protein Negative (Negative) 07/19/17 13:33 Urine Glucose (UA) Negative (Negative) 07/19/17 13:33 Urine Ketones Negative (Negative) 07/19/17 13:33 Urine Blood Moderate (Negative) H 07/19/17 13:33 Urine Nitrite Negative (Negative) 07/19/17 13:33 Urine Bilirubin Negative (Negative) 07/19/17 13:33 Urine Urobilinogen <2.0 mg/dL (<2.0) 07/19/17 13:33 Ur Leukocyte Esterase Negative (Negative) 07/19/17 13:33 Urine RBC 50 /hpf (0-5) H 07/19/17 13:33 Urine WBC 2 /hpf (0-5) 07/19/17 13:33 Ur Squamous Epith Cells <1 /hpf (0-4) 07/19/17 13:33 Urine Mucus Rare /hpf (None) H 07/19/17 13:33 Ur Random Creatinine 36.9 mg/dL 07/19/17 14:37 Ur Random Sodium 71 mmol/L (30-90) 07/19/17 14:37 Blood Type B Positive 07/19/17 12:15 Blood Type Confirm B Positive 07/19/17 10:55 Blood Type Recheck CABO Indicated 07/19/17 12:15 Antibody Screen NEGATIVE 07/19/17 12:15 Crossmatch See Detail 07/19/17 12:15 Spec Expiration Date 07/22/2017 - 9600 07/19/17 12:15 Microbiology 07/19/17 13:33 Urine,Clean Catch Urine Culture - Final 07/19/17 10:55 Blood Blood Culture - Preliminary No Growth after 24 hours 07/19/17 10:55 Leg - Left Gram Stain - Preliminary 07/19/17 10:55 Leg - Left Wound Culture - Preliminary Assessment and Plan (1) Left leg cellulitis Narrative/Plan: 81-year-old male presents to hospital with his family with complaints of increasing difficulty to his left leg. It had blistered and had drainage and had redness. Suddenly concerns to a cellulitis. Local wound care with Silvadene will be initiated with some rolled gauze and Jayme to try to help the site. Wound culture is pending. Antimicrobial therapy has been an issue with vancomycin and ceftriaxone for now. A duplex was requested and there is concerned to deep venous thrombosis although may be old the patient was unable to cooperate well for the exam. Since center. Is now present he may be able to cooperate better for a relook. Clotting is of some concern given the data of the complex right renal mass and concerns to a renal carcinoma that is worsened since September of this year. ER notes are reviewed from the September stay. Which point in time the data was transmitted to his primary care physician who was to have follow-up with the outpatient setting. At this time it is unclear what has occurred. Imaging at that time revealed evidence of abnormalities in his lung which family related poor old and being found the outpatient setting also. Leukocytosis appears related to the process in the left leg. Is also concerned that he has acute renal failure that could be worsening because of the lesion on the kidney and some process. He has hyperkalemia that is being treated. Urinalysis is benign for infection. The patient has no fever. If the leg does not respond rapidly to treatment would consider the possibility of a biopsy to ensure that this is not a cutaneous aspect of potential underlying malignancy. Current Visit: Yes Status: Acute Code(s): L03.116 - CELLULITIS OF LEFT LOWER LIMB SNOMED Code(s): 452772367 (2) Acute renal failure Current Visit: Yes Status: Acute Code(s): N17.9 - ACUTE KIDNEY FAILURE, UNSPECIFIED SNOMED Code(s): 38261367 (3) Right renal mass Current Visit: Yes Status: Acute Code(s): N28.89 - OTHER SPECIFIED DISORDERS OF KIDNEY AND URETER SNOMED Code(s): 992826749
[2017-07-20] MEDS: SODIUM BICARBONATE TAB 650 MG TAB PO SCH (21:43)
[2017-07-21 06:31] LABS: Anisocytosis Slight; CH 29.5; CHCM 30.1; HDW 3.07; Hypochromasia Marked; MCH 29.7 pg (25.0-35.0); MCHC 30.1 g/dL (31.0-37.0); MCV 98.7 fL (80.0-100.0); Macrocytosis Slight; Mean Platelet Volume 7.5; RBC 2.33 m/uL (4.30-5.90); RDW 17.2 % (11.5-15.5); WBC 20.3 k/uL (3.8-10.6)
[2017-07-21 06:34] LABS: ALT 43 U/L (21-72); AST 35 U/L (17-59); Alkaline Phosphatase 90 U/L (38-126); Anion Gap 11 mmol/L; Blood Urea Nitrogen 75 mg/dL (9-20); Calcium 8.5 mg/dL (8.4-10.2); Carbon Dioxide 23 mmol/L (22-30); Chloride 111 mmol/L (98-107); Glucose 188 mg/dL (74-99); Non-African American GFR(MDRD) 53 (>60 ml/min/1.73 sqM); Potassium 4.5 mmol/L (3.5-5.1); Sodium 145 mmol/L (137-145); Total Bilirubin 0.8 mg/dL (0.2-1.3); Total Protein 5.5 g/dL (6.3-8.2)
[2017-07-21 06:39] LABS: HGB 6.9 gm/dL (13.0-17.5)
[2017-07-21] MEDS: IPRATROPIUM-ALBUTEROL 3 ML NEB INHALATION SCH ×4 (07:03→19:26)
[2017-07-21] MEDS: SODIUM BICARBONATE TAB 650 MG TAB PO SCH ×2 (08:35→21:25)
[2017-07-21] MEDS: METOPROLOL TARTRATE 25 MG TAB PO SCH ×2 (08:35→21:25)
[2017-07-21] MEDS: PANTOPRAZOLE 40 MG/10 ML VIAL IVP SCH (08:35)
[2017-07-21] MEDS: TAMSULOSIN 0.4 MG CAP.ER.24H PO SCH (08:36)
[2017-07-21] MEDS: VANCOMYCIN 1,500 MG in SODIUM CHLORIDE 0.9% 250 ML IVPB SCH (08:38)
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
--- NOTE | 2017-07-21 12:31 | ECHOF ---
Referral Reason:CHF MEASUREMENTS -------- HEIGHT: 182.9 cm WEIGHT: 77.1 kg BP: 116/40 RVIDd: 3.6 cm (< 3.3) IVSd: 1.3 cm (0.6 - 1.1) LVIDd: 4.3 cm (3.9 - 5.3) LVPWd: 1.1 cm (0.6 - 1.1) IVSs: 1.3 cm LVIDs: 3.3 cm LVPWs: 1.4 cm LA Diam: 4.2 cm (2.7 - 3.8) Ao Diam: 3.8 cm (2.0 - 3.7) AV Cusp: 1.2 cm (1.5 - 2.6) LA Diam: 3.9 cm (2.7 - 3.8) MV EXCURSION: 21.866 mm (> 18.000) MV EF SLOPE: 100 mm/s (70 - 150) EPSS: 0.6 cm MV E Isaías: 1.11 m/s MV DecT: 135 ms MV A Isaías: 0.21 m/s MV E/A Ratio: 5.16 AV maxP.22 mmHg AV meanP.30 mmHg RAP: 5.00 mmHg RVSP: 40.84 mmHg FINDINGS -------- Atrial fibrillation. This was a technically adequate study. The left ventricular size is normal. There is mild concentric left ventricular hypertrophy. Overa ll left ventricular systolic function is normal with, an EF between 55 - 60 %. The right ventricle is normal in size. The left atrium is mildly dilated. The right atrial size is normal. There is moderate aortic valve sclerosis. There is mild aortic stenosis present. Peak/mean gradie nt across the Aortic Valve is 22.22mmHg / 12.30mmHg. Moderate mitral annular calcification present. Zgmj-lm-fhaxmlqi mitral regurgitation is present. Ecau-qq-hlsmnbtl tricuspid regurgitation present. There is mild pulmonary hypertension. The right ventricular systolic pressure, as measured by Doppler, is 40.84mmHg. Trace/mild (physiologic) pulmonic regurgitation. The aortic root size is normal. There is no pericardial effusion. CONCLUSIONS -------- 1. Atrial fibrillation. 2. This was a technically adequate study. 3. There is mild concentric left ventricular hypertrophy. 4. Overall left ventricular systolic function is normal with, an EF between 55 - 60 %. 5. The left atrium is mildly dilated. 6. The right atrial size is normal. 7. There is moderate aortic valve sclerosis. 8. There is mild aortic stenosis present. 9. Peak/mean gradient across the Aortic Valve is 22.22mmHg / 12.30mmHg. 10. Moderate mitral annular calcification present. 11. Eeou-oh-hzguuwpe mitral regurgitation is present. 12. Nsca-yu-gyzdmyvx tricuspid regurgitation present. 13. There is mild pulmonary hypertension. 14. Trace/mild (physiologic) pulmonic regurgitation. 15. The aortic root size is normal. 16. There is no pericardial effusion. SURGICAL TECHNICIAN: Rox Haddad RDCS
--- NOTE | 2017-07-21 15:13 | P.PN ---
Subjective patient has multiple medical issues going on at this point of time and patient was a valid by multiple medical physicians. Patient was initially admitted verified lower limb cellulitis left lower limb , patient later had Doppler of the left lower extremity which showed a DVT, patient was already on 0 alto which is being held because of her dark stools. Patient was started on Protonix gastric body was consulted infectious disease and nephrology evaluated the patient. Patient is also found to haveright renal mass on the ultrasound of the abdomen and bladder, walk worse compared to last hospitalization her last ultrasound,oncology was consulted. Patient's anti-correlation is on hold. Patient's IV fluids were discontinued as patient had issues with shortness of breath and crackles on lung exam did obtain a chest x-ray probably will need an echocardiogram as well.I was able to come in again with the patient weight via commissioned security officer 07/21/2017 patient is feeling much better today GI bleed improved his hemoglobin remains at 6 will transfuse 1 more unit of blood oncology attempt valid the patient.Can use to have leukocytosis Constitutional: Denied any fatigue denied any fever. Cardio vascular: denied any chest pain, palpitations Gastrointestinal denied any nausea vomiting Pulmonary: Denied any shortness of breath cough Neurologic denied any new focal deficits Objective - Vital Signs Vital signs: Vital Signs Temp 97.6 F 07/21/17 12:00 Pulse 114 H 07/21/17 12:00 Resp 16 07/21/17 12:00 BP 122/66 07/21/17 12:00 Pulse Ox 97 07/21/17 12:00 Intake & Output 07/20/17 07/21/17 07/21/17 18:59 06:59 18:59 Intake Total 1080 100 910 Output Total 4600 2200 2200 Balance -3520 -2100 -1290 Weight 73 kg Intake: Intake, IV Titration 300 Amount Vancomycin 1,500 mg In 250 Sodium Chloride 0.9% 250 ml @ 125 mls/hr IVPB Q24H SOL Rx#:[id number] cefTRIAXone 1,000 mg In 50 Sodium Chloride 0.9% 50 ml @ 100 mls/hr IVPB HS SOL Rx#:[id number] Oral 780 100 600 Blood Product 310 Rc As-1 Unit 310 [id number] Output: Urine 4600 2200 2200 Uretheral (Thomason) 3600 1600 1600 Other: Voiding Method Indwelling Catheter Indwelling Catheter Indwelling Catheter # Voids 1 # Bowel Movements 1 - Exam GENERAL: The patient is alert and oriented x3, not in any acute distress. Well developed, well nourished. HEENT: Pupils are round and equally reacting to light. EOMI. No scleral icterus. No conjunctival pallor. Normocephalic, atraumatic. No pharyngeal erythema. No thyromegaly. CARDIOVASCULAR: S1 and S2 present. No murmurs, rubs, or gallops. PULMONARY: Rhonchus breath sounds significant expiratory wheezing was appreciated ABDOMEN: Soft, nontender, nondistended, normoactive bowel sounds. No palpable organomegaly. MUSCULOSKELETAL: No joint swelling or deformity. EXTREMITIES: No cyanosis, clubbing, or pedal edema. NEUROLOGICAL: Gross neurological examination did not reveal any focal deficits. SKIN: The latest of the left leg with skin breakdowns and previous bullous lesions significant redness extending almost up to the knee - Labs CBC & Chem 7: 07/21/17 05:54 07/21/17 05:51 Labs: Abnormal Lab Results - Last 24 Hours (Table) 07/19/17 07/21/17 07/21/17 Range/Units 12:15 05:51 05:54 WBC 20.3 H (3.8-10.6) k/uL RBC 2.33 L (4.30-5.90) m/uL Hgb 6.9 L* (13.0-17.5) gm/dL Hct 23.0 L (39.0-53.0) % MCHC 30.1 L (31.0-37.0) g/dL RDW 17.2 H (11.5-15.5) % Chloride 111 H (98-107) mmol/L BUN 75 H (9-20) mg/dL Creatinine 1.30 H (0.66-1.25) mg/dL Glucose 188 H (74-99) mg/dL Total Protein 5.5 L (6.3-8.2) g/dL Albumin 2.8 L (3.5-5.0) g/dL Crossmatch See Detail Microbiology - Last 24 Hours (Table) 07/19/17 10:55 Blood Culture - Preliminary Blood No Growth after 48 hours 07/19/17 13:33 Urine Culture - Final Urine,Clean Catch 07/19/17 10:55 Gram Stain - Preliminary Leg - Left Wound Culture - Preliminary Assessment and Plan Plan: #1 left lower limbs allied his: Possibility of sepsis from that and the patient will be is on IV vancomycin. #2 right lower lobe pneumonia for which patient was started on Rocephin there is a possibility that patient has pneumonia. #3 COPD with acute exacerbation #4 anemia, chronic and macrocytic, IV blood transfusion 1 unit and further evaluation as mentioned above #5 hypertension: Patient is presently hypotensive due to intravascular depletion or sepsis. #6 hyperkalemia: improved now #7 acute renal dysfunction most probably prerenal Azotemia , patient had issues with pulmonary edema yesterday because of which IV fluids were discontinued and patient was given Lasix and nephrology is following the patient. #8 possible upper GI bleed no dark stools today continue with Protonix gastroneurology evaluated the patient. #9 DVT of the left femoral vein: Patient's anti-correlation is on hold because of possibly of GI bleed
[2017-07-21 16:08] LABS: Iron Saturation 11.02 (15.00-50.00)
--- NOTE | 2017-07-21 16:18 | PN ---
PROGRESS NOTE Patient is seen for followup for acute kidney injury. An experimental physicist is present at bedside at as patient speaks only Prydeinig. His renal function has improved significantly with creatinine down from 2.7 to 1.3 mg/dL. He remains on . He is currently not on any IV fluids. He has started to eat. He did receive Lasix initially, currently no diuretics on board. Patient is being treated for wound infection on his left leg. He did have a mass noted on ultrasound on his right kidney, which is highly suspicious for renal cell cancer. I believe Urology was consulted. EXAMINATION: Currently patient is sitting up in bed. He is comfortable. He is not in any acute distress. Blood pressure is 115/57, heart rate 121 per minute. He is afebrile. Examination of the heart S1, S2. Examination lungs bilateral breath sounds are heard. Abdomen is soft, nontender. Examination of the lower extremities shows no significant edema. MAGNETO ELECTRICIAN exam is grossly intact. The patient is moving all 4 extremities. His both lower extremities are wrapped, particularly left leg with a large wound. LAB: Show sodium 145, potassium 4.5, chloride 111, CO2 is 23, BUN 75, serum creatinine of 1.3. Hemoglobin was 6.9 g/dL. ASSESSMENT: 1. Acute kidney injury, mainly prerenal, currently improving. The patient is off of IV fluids. He is not on any Lasix either. He has started to eat. He did have some degree of urinary retention as well and he currently has an indwelling Thomason catheter with good urine output. Continue to maintain patient off of angiotensin receptor blockers. 2. Hyperkalemia associated with acute kidney injury as well as possible underlying gastrointestinal bleed. Continue off of angiotensin receptor blockers. Check stool for occult blood. Gastroenterology has been consulted. 3. Left lower extremity wounds, maintained on Rocephin, Vanco, being followed by ID. 4. Right main renal mass suspicious for malignancy. I believe Urology was consulted. PLAN: No changes from Nephrology standpoint. Await urology input. The patient will need followup as outpatient. He will likely need right nephrectomy. Check iron studies if not done yet. MMODL / IJN: [id number] /
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
[2017-07-21] MEDS ORDERED: HEPARIN SODIUM,PORCINE 5,000 UNIT/ML 1 ML VIAL IV PRN (17:54)
[2017-07-21] MEDS ORDERED: HEPARIN SODIUM,PORCINE 10,000 UNIT/ML 1 ML VIAL IV ONE (17:54)
[2017-07-21] MEDS: HEPARIN SODIUM,PORCINE/D5W PMX 25,000 UNIT in DEXTROSE/WATER 1 500ML.BAG IV SCH (18:29)
[2017-07-21] MEDS: PANTOPRAZOLE 40 MG TABLET PO SCH (18:29)
[2017-07-21 18:54] LABS: Anisocytosis Slight; Basophils # (A) 0.1 k/uL (0-0.2); Basophils % (A) 0 %; CH 30.1; CHCM 31.8; Eosinophils # (A) 0.3 k/uL (0-0.7); Eosinophils % (A) 2 %; HCT 24.5 % (39.0-53.0); HDW 3.42; HGB 7.6 gm/dL (13.0-17.5); Hypochromasia Slight; Luc # (Auto) 0.31; Luc % (Auto) 2; Lymphocytes # (A) 1.4 k/uL (1.0-4.8); Lymphocytes % (A) 9 %; MCH 29.8 pg (25.0-35.0); MCHC 31.2 g/dL (31.0-37.0); MCV 95.6 fL (80.0-100.0); Monocytes # (A) 0.8 k/uL (0-1.0); Monocytes % (A) 5 %; Neutrophils % (A) 81 %; Poikilocytosis Slight; RBC 2.56 m/uL (4.30-5.90); RDW 16.5 % (11.5-15.5); WBC 14.8 k/uL (3.8-10.6); WBC (Perox) 14.73
[2017-07-21 18:59] LABS: INR 1.3 (<1.2); Partial Thromboplastin Time 21.3 sec (22.0-30.0); Prothrombin Time 12.8 sec (9.0-12.0)
[2017-07-21] MEDS: ACETAMINOPHEN TAB 325 MG TAB PO PRN (21:25)
--- NOTE | 2017-07-21 22:19 | P.PN ---
Subjective Progress Note Date: 07/21/17 Principal diagnosis: left leg pain 81-year-old male resents the emergency center with complaints of wound into his left leg. The patient speaks Sammarinese, if further information is coming from the chart at this time. As I enter the room the patient needs to urinate. He is given a urinal and probably urinates all over the floor and missed the urinal almost completely. To the patient's limited Danish she relates that he does have pain in the left leg. Rn Psych was present today and patient does relate to pain to the left leg. Improved with the silvadene and wrap. Feels better today.ut had gastrointestinal bleed. receiving a blood transfusion today Objective - Vital Signs Vital signs: Vital Signs Temp 98.0 F 07/21/17 17:25 Pulse 121 H 07/21/17 19:37 Resp 18 07/21/17 17:25 BP 122/70 07/21/17 17:25 Pulse Ox 98 07/21/17 17:25 Intake & Output 07/21/17 07/21/17 07/22/17 06:59 18:59 06:59 Intake Total 100 1460 Output Total 2200 3000 Balance -2100 -1540 Weight 73 kg Intake: Oral 100 840 Blood Product 620 Rc As-1 Unit 310 [id number] Rc As-1 Unit 310 [id number] Output: Urine 2200 3000 Uretheral (Thomason) 1600 2400 Other: Voiding Method Indwelling Catheter Indwelling Catheter # Voids 1 # Bowel Movements 1 - Exam 81-year-old male who seems to be comfortable. HEENT: Anicteric conjunctiva are pink and moist nasal mucosa grossly intact without significant lesions, there is no thrush. Poor dentition Neck: The neck is supple without significant lymphadenopathy or thyromegaly. Lungs: Good bilateral air entry without significant crackles scattered wheezes are heard. There is no significant bronchial sounds. There is no egophony or dullness. Heart: Irregular with an audible S1 and S2 soft S4. There is no significant murmur click or rub, PMI was nondisplaced. Abdomen: Positive bowel sounds soft and nontender without palpable masses or organomegaly. There was no guarding or rebound. Extremities: The upper extremities have excellent pulses they are symmetric, no significant petechiae or telangiectasia. No splinter hemorrhages were noted. The right lower extremity is intact. There are no open lesions. Left lower extremity reveals evidence of the extensive swelling from the foot to just below the knee. There is distinct discoloration. There appears to be a chronic ulceration to the lateral aspect of the ankle and of the lower leg. There is evidence of blistering and denuded skin around the anterior aspect of the lower leg in the calf area. It is tender. but improving with the Silvadene wrap. There has been some serous drainage Neuro: Awake alert cooperative, - Labs CBC & Chem 7: 07/21/17 18:15 07/21/17 05:51 Labs: Abnormal Lab Results - Last 24 Hours (Table) 07/19/17 07/21/17 07/21/17 Range/Units 12:15 05:51 05:51 WBC (3.8-10.6) k/uL RBC (4.30-5.90) m/uL Hgb (13.0-17.5) gm/dL Hct (39.0-53.0) % MCHC (31.0-37.0) g/dL RDW (11.5-15.5) % Neutrophils # (1.3-7.7) k/uL PT (9.0-12.0) sec INR (<1.2) APTT (22.0-30.0) sec Chloride 111 H (98-107) mmol/L BUN 75 H (9-20) mg/dL Creatinine 1.30 H (0.66-1.25) mg/dL Glucose 188 H (74-99) mg/dL Iron 27 L (65-175) ug/dL Iron Saturation 11.02 L (15.00-50.00) Total Protein 5.5 L (6.3-8.2) g/dL Albumin 2.8 L (3.5-5.0) g/dL Crossmatch See Detail 07/21/17 07/21/17 07/21/17 Range/Units 05:54 18:15 18:15 WBC 20.3 H 14.8 H (3.8-10.6) k/uL RBC 2.33 L 2.56 L (4.30-5.90) m/uL Hgb 6.9 L* 7.6 L (13.0-17.5) gm/dL Hct 23.0 L 24.5 L (39.0-53.0) % MCHC 30.1 L (31.0-37.0) g/dL RDW 17.2 H 16.5 H (11.5-15.5) % Neutrophils # 12.0 H (1.3-7.7) k/uL PT 12.8 H (9.0-12.0) sec INR 1.3 H (<1.2) APTT 21.3 L (22.0-30.0) sec Chloride (98-107) mmol/L BUN (9-20) mg/dL Creatinine (0.66-1.25) mg/dL Glucose (74-99) mg/dL Iron (65-175) ug/dL Iron Saturation (15.00-50.00) Total Protein (6.3-8.2) g/dL Albumin (3.5-5.0) g/dL Crossmatch Microbiology - Last 24 Hours (Table) 07/19/17 10:55 Gram Stain - Final Leg - Left Wound Culture - Final 07/19/17 10:55 Blood Culture - Preliminary Blood No Growth after 48 hours 07/19/17 13:33 Urine Culture - Final Urine,Clean Catch Laboratory Results WBC 14.8 k/uL (3.8-10.6) H 07/21/17 18:15 RBC 2.56 m/uL (4.30-5.90) L 07/21/17 18:15 Hgb 7.6 gm/dL (13.0-17.5) L 07/21/17 18:15 Hct 24.5 % (39.0-53.0) L 07/21/17 18:15 MCV 95.6 fL (80.0-100.0) 07/21/17 18:15 MCH 29.8 pg (25.0-35.0) 07/21/17 18:15 MCHC 31.2 g/dL (31.0-37.0) 07/21/17 18:15 RDW 16.5 % (11.5-15.5) H 07/21/17 18:15 Plt Count 158 k/uL (150-450) 07/21/17 18:15 Neutrophils % 81 % 07/21/17 18:15 Neutrophils % (Manual) 72 % 07/20/17 03:54 Band Neutrophils % 3 % 07/20/17 03:54 Lymphocytes % 9 % 07/21/17 18:15 Lymphocytes % (Manual) 12 % 07/20/17 03:54 Monocytes % 5 % 07/21/17 18:15 Monocytes % (Manual) 7 % 07/20/17 03:54 Eosinophils % 2 % 07/21/17 18:15 Eosinophils % (Manual) 3 % 07/20/17 03:54 Basophils % 0 % 07/21/17 18:15 Metamyelocytes % 3 % 07/20/17 03:54 Neutrophils # 12.0 k/uL (1.3-7.7) H 07/21/17 18:15 Neutrophils # (Manual) 10.20 k/uL (1.3-7.7) H 07/20/17 03:54 Lymphocytes # 1.4 k/uL (1.0-4.8) 07/21/17 18:15 Lymphocytes # (Manual) 1.64 k/uL (1.0-4.8) 07/20/17 03:54 Monocytes # 0.8 k/uL (0-1.0) 07/21/17 18:15 Monocytes # (Manual) 0.96 k/uL (0-1.0) 07/20/17 03:54 Eosinophils # 0.3 k/uL (0-0.7) 07/21/17 18:15 Eosinophils # (Manual) 0.41 k/uL (0-0.7) 07/20/17 03:54 Basophils # 0.1 k/uL (0-0.2) 07/21/17 18:15 Metamyelocytes # (Man) 0.41 k/uL (0) H 07/20/17 03:54 Nucleated RBCs 0 /100 WBC (0-0) 07/20/17 03:54 Manual Slide Review Performed 07/20/17 03:54 Polychromasia Present 07/20/17 03:54 Hypochromasia Slight 07/21/17 18:15 Poikilocytosis Slight 07/21/17 18:15 Anisocytosis Slight 07/21/17 18:15 Macrocytosis Slight 07/21/17 05:54 PT 12.8 sec (9.0-12.0) H 07/21/17 18:15 INR 1.3 (<1.2) H 07/21/17 18:15 APTT 21.3 sec (22.0-30.0) L 07/21/17 18:15 Sodium 145 mmol/L (137-145) 07/21/17 05:51 Potassium 4.5 mmol/L (3.5-5.1) 07/21/17 05:51 Chloride 111 mmol/L (98-107) H 07/21/17 05:51 Carbon Dioxide 23 mmol/L (22-30) 07/21/17 05:51 Anion Gap 11 mmol/L 07/21/17 05:51 BUN 75 mg/dL (9-20) H 07/21/17 05:51 Creatinine 1.30 mg/dL (0.66-1.25) H 07/21/17 05:51 Est GFR (MDRD) Af Amer >60 (>60 ml/min/1.73 sqM) 07/21/17 05:51 Est GFR (MDRD) Non-Af 53 (>60 ml/min/1.73 sqM) 07/21/17 05:51 Glucose 188 mg/dL (74-99) H 07/21/17 05:51 POC Glucose (mg/dL) 101 mg/dL (75-99) H 07/19/17 23:43 POC Glu Edge Inker KARLA Sandee Johnson 07/19/17 23:43 Calcium 8.5 mg/dL (8.4-10.2) 07/21/17 05:51 Iron 27 ug/dL (65-175) L 07/21/17 05:51 TIBC 245 ug/dL (228-460) 07/21/17 05:51 Iron Saturation 11.02 (15.00-50.00) L 07/21/17 05:51 Ferritin 231.4 ng/mL (22.0-322.0) 07/21/17 05:51 Total Bilirubin 0.8 mg/dL (0.2-1.3) 07/21/17 05:51 AST 35 U/L (17-59) 07/21/17 05:51 ALT 43 U/L (21-72) 07/21/17 05:51 Alkaline Phosphatase 90 U/L (38-126) 07/21/17 05:51 NT-Pro-B Natriuret Pep 5130 pg/mL 07/19/17 10:55 Total Protein 5.5 g/dL (6.3-8.2) L 07/21/17 05:51 Albumin 2.8 g/dL (3.5-5.0) L 07/21/17 05:51 Vitamin B12 1232.0 pg/mL (200.0-944.0) H 07/19/17 18:01 Urine Color Light Yellow 07/19/17 13:33 Urine Appearance Clear (Clear) 07/19/17 13:33 Urine pH 5.0 (5.0-8.0) 07/19/17 13:33 Ur Specific [place] 1.011 (1.001-1.035) 07/19/17 13:33 Urine Protein Negative (Negative) 07/19/17 13:33 Urine Glucose (UA) Negative (Negative) 07/19/17 13:33 Urine Ketones Negative (Negative) 07/19/17 13:33 Urine Blood Moderate (Negative) H 07/19/17 13:33 Urine Nitrite Negative (Negative) 07/19/17 13:33 Urine Bilirubin Negative (Negative) 07/19/17 13:33 Urine Urobilinogen <2.0 mg/dL (<2.0) 07/19/17 13:33 Ur Leukocyte Esterase Negative (Negative) 07/19/17 13:33 Urine RBC 50 /hpf (0-5) H 07/19/17 13:33 Urine WBC 2 /hpf (0-5) 07/19/17 13:33 Ur Squamous Epith Cells <1 /hpf (0-4) 07/19/17 13:33 Urine Mucus Rare /hpf (None) H 07/19/17 13:33 Ur Random Creatinine 36.9 mg/dL 07/19/17 14:37 Ur Random Sodium 71 mmol/L (30-90) 07/19/17 14:37 Blood Type B Positive 07/19/17 12:15 Blood Type Confirm B Positive 07/19/17 10:55 Blood Type Recheck CABO Indicated 07/19/17 12:15 Antibody Screen NEGATIVE 07/19/17 12:15 Crossmatch See Detail 07/19/17 12:15 Spec Expiration Date 07/22/2017231407/19/17 12:15 Microbiology 07/19/17 10:55 Leg - Left Gram Stain - Final 07/19/17 10:55 Leg - Left Wound Culture - Final 07/19/17 10:55 Blood Blood Culture - Preliminary No Growth after 48 hours 07/19/17 13:33 Urine,Clean Catch Urine Culture - Final Assessment and Plan (1) Left leg cellulitis Narrative/Plan: 81-year-old male presents to hospital with his family with complaints of increasing difficulty to his left leg. It had blistered and had drainage and had redness. Suddenly concerns to a cellulitis. Local wound care with Silvadene will be initiated with some rolled gauze and Jayme to try to help the site. Wound culture is pending. Antimicrobial therapy has been an issue with vancomycin and ceftriaxone for now. A duplex was requested and there is concerned to deep venous thrombosis although may be old the patient was unable to cooperate well for the exam. Since center. Is now present he may be able to cooperate better for a relook. Clotting is of some concern given the data of the complex right renal mass and concerns to a renal carcinoma that is worsened since September of this year. ER notes are reviewed from the September stay. Which point in time the data was transmitted to his primary care physician who was to have follow-up with the outpatient setting. At this time it is unclear what has occurred. Imaging at that time revealed evidence of abnormalities in his lung which family related poor old and being found the outpatient setting also. Leukocytosis appears related to the process in the left leg. Is also concerned that he has acute renal failure that could be worsening because of the lesion on the kidney and some process. He has hyperkalemia that is being treated. Urinalysis is benign for infection. The patient has no fever. The lesions of the left leg and responding to current antibiotic and local wound care. He is receiving evaluation for the deep venous thrombosis, both the gastrointestinal bleed anticoagulation is problematic. Unclear what the discharge plan will be at this time Current Visit: Yes Status: Acute Code(s): L03.116 - CELLULITIS OF LEFT LOWER LIMB SNOMED Code(s): 186348395 (2) Acute renal failure Current Visit: Yes Status: Acute Code(s): N17.9 - ACUTE KIDNEY FAILURE, UNSPECIFIED SNOMED Code(s): 64457879 (3) Right renal mass Current Visit: Yes Status: Acute Code(s): N28.89 - OTHER SPECIFIED DISORDERS OF KIDNEY AND URETER SNOMED Code(s): 388296199
[2017-07-22 00:55] LABS: Iron Saturation 10.98 (15.00-50.00)
[2017-07-22 06:15] LABS: Anisocytosis Slight; Basophils % (A) 0 %; CH 29.7; CHCM 31.3; Eosinophils # (A) 0.6 k/uL (0-0.7); Eosinophils % (A) 4 %; HCT 23.8 % (39.0-53.0); HDW 3.46; HGB 7.5 gm/dL (13.0-17.5); Hypochromasia Moderate; Luc # (Auto) 0.26; Luc % (Auto) 2; Lymphocytes # (A) 1.4 k/uL (1.0-4.8); Lymphocytes % (A) 9 %; MCH 30.4 pg (25.0-35.0); MCHC 31.7 g/dL (31.0-37.0); MCV 95.9 fL (80.0-100.0); Macrocytosis Slight; Mean Platelet Volume 7.4; Monocytes # (A) 0.5 k/uL (0-1.0); Monocytes % (A) 4 %; Neutrophils # (A) 12.9 k/uL (1.3-7.7); Neutrophils % (A) 82 %; Poikilocytosis Slight; RBC 2.48 m/uL (4.30-5.90); RDW 17.7 % (11.5-15.5); Reticulocyte % 1.6 % (0.5-2.0); WBC 15.8 k/uL (3.8-10.6); WBC (Perox) 15.22
[2017-07-22] MEDS: PANTOPRAZOLE 40 MG TABLET PO SCH ×2 (06:40→16:12)
[2017-07-22 07:04] LABS: Anion Gap 5 mmol/L; Blood Urea Nitrogen 38 mg/dL (9-20); Calcium 8.3 mg/dL (8.4-10.2); Carbon Dioxide 28 mmol/L (22-30); Chloride 111 mmol/L (98-107); Glucose 122 mg/dL (74-99); Non-African American GFR(MDRD) >60 (>60 ml/min/1.73 sqM); Potassium 3.6 mmol/L (3.5-5.1); Sodium 144 mmol/L (137-145)
[2017-07-22 07:17] LABS: Erythrocyte Sedimentation Rate 62 mm/hr (0-15)
[2017-07-22] MEDS ORDERED: VANCOMYCIN TROUGH DUE 1 EACH MISC MISCELLANE ONE (08:00)
[2017-07-22] MEDS: METOPROLOL TARTRATE 25 MG TAB PO SCH (08:32)
[2017-07-22] MEDS: TAMSULOSIN 0.4 MG CAP.ER.24H PO SCH (08:32)
[2017-07-22] MEDS: SODIUM BICARBONATE TAB 650 MG TAB PO SCH (08:32)
[2017-07-22] MEDS: VANCOMYCIN 1,500 MG in SODIUM CHLORIDE 0.9% 250 ML IVPB SCH ×2 (08:43→23:16)
--- NOTE | 2017-07-22 09:16 | PN ---
PROGRESS NOTE DATE OF SERVICE: 07/22/17 The patient is a 81-year-old pleasant white male, seen in consultation yesterday for severe symptomatic anemia. He was admitted to hospital with left lower leg cellulitis and presently on broad-spectrum antibiotics. He had a hemoglobin of 6.9, requiring 1 unit of blood transfusion. This morning it is 7.5. He denies any symptoms. He reports no nausea, vomiting. He had 2 episodes of black stools yesterday, but none this morning. PHYSICAL EXAMINATION: He appears comfortable. No apparent distress. VITAL SIGNS: Stable. Blood pressure is 109/67, pulse rate 110, temperature 98. HEENT examination unremarkable. Conjunctivae pink. Sclerae anicteric. Oral cavity no lesions. Neck: No jugular venous distention or lymph node enlargement. Chest: Clear to auscultation. HEART: Regular rate and rhythm. ABDOMEN: Soft, nontender, nondistended. Bowel sounds are positive. No organomegaly. Extremities no pedal edema. Severe cellulitis of the left lower extremity. LABS: From today, WBC 15.8, hemoglobin 7.5, and platelets 146. PTT is 53.5 cm. The BUN 38 and creatinine 1.07. Serum iron of 27, TIBC of 245, iron saturation 11%, and ferritin of 231. IMPRESSION: 1. Normocytic anemia and iron indices not consistent with iron deficiency anemia. Most likely we are dealing with anemia of chronic disease in part related to renal insufficiency. Dr. Spears from Hematology has been consulted, who evaluated the patient yesterday. Since there is no evidence of iron deficiency anemia, I will not schedule him for any endoscopy workup at the present time. 2. Left lower extremity cellulitis for which Dr. Godinez is following the patient closely, on broad-spectrum antibiotics. 3. Acute renal insufficiency, gradually improving. BUN and creatinine has significantly improved today. RECOMMENDATION: 1. Continue current management. 2. We will not plan on any endoscopic intervention at the present time. 3. We will sign off at this time. Please call us if needed. Thank you for this consultation. MMODL / IJN: [id number] /
[2017-07-22] MEDS: IPRATROPIUM-ALBUTEROL 3 ML NEB INHALATION SCH ×4 (09:18→20:44)
--- NOTE | 2017-07-22 10:26 | P.PN ---
Subjective Progress Note Date: 07/22/17 Principal diagnosis: Follow-up for acute kidney injury Seen and examined in the room with family at bedside. Family was able to interpret. As per the family he is doing good. Objective - Vital Signs Vital signs: Vital Signs Temp 97 F L 07/22/17 08:25 Pulse 128 H 07/22/17 09:29 Resp 20 07/22/17 08:25 BP 124/61 07/22/17 08:25 Pulse Ox 99 07/22/17 08:25 Intake & Output 07/21/17 07/22/17 07/22/17 18:59 06:59 18:59 Intake Total 1460 118 Output Total 3000 1100 Balance -1540 -1100 118 Weight 74.3 kg Intake: Oral 840 118 Blood Product 620 Rc As-1 Unit 310 [id number] Rc As-1 Unit 310 [id number] Output: Urine 3000 1100 Uretheral (Thomason) 2400 Other: Voiding Method Indwelling Catheter Indwelling Catheter Indwelling Catheter # Voids 1 - Exam Lying in bed no acute distress S1-S2 heard Lungs clear to auscultation No edema - Labs CBC & Chem 7: 07/22/17 05:41 07/22/17 05:41 Labs: Abnormal Lab Results - Last 24 Hours (Table) 07/19/17 07/21/17 07/21/17 Range/Units 12:15 05:51 18:15 WBC 14.8 H (3.8-10.6) k/uL RBC 2.56 L (4.30-5.90) m/uL Hgb 7.6 L (13.0-17.5) gm/dL Hct 24.5 L (39.0-53.0) % RDW 16.5 H (11.5-15.5) % Plt Count (150-450) k/uL Neutrophils # 12.0 H (1.3-7.7) k/uL ESR (0-15) mm/hr PT (9.0-12.0) sec INR (<1.2) APTT (22.0-30.0) sec Chloride (98-107) mmol/L BUN (9-20) mg/dL Glucose (74-99) mg/dL Calcium (8.4-10.2) mg/dL Iron 27 L (65-175) ug/dL Iron Saturation 11.02 L (15.00-50.00) Crossmatch See Detail 07/21/17 07/22/17 07/22/17 Range/Units 18:15 00:02 05:41 WBC (3.8-10.6) k/uL RBC (4.30-5.90) m/uL Hgb (13.0-17.5) gm/dL Hct (39.0-53.0) % RDW (11.5-15.5) % Plt Count (150-450) k/uL Neutrophils # (1.3-7.7) k/uL ESR (0-15) mm/hr PT 12.8 H (9.0-12.0) sec INR 1.3 H (<1.2) APTT 21.3 L 69.3 H (22.0-30.0) sec Chloride 111 H (98-107) mmol/L BUN 38 H (9-20) mg/dL Glucose 122 H (74-99) mg/dL Calcium 8.3 L (8.4-10.2) mg/dL Iron (65-175) ug/dL Iron Saturation (15.00-50.00) Crossmatch 07/22/17 07/22/17 Range/Units 05:41 05:41 WBC 15.8 H (3.8-10.6) k/uL RBC 2.48 L (4.30-5.90) m/uL Hgb 7.5 L (13.0-17.5) gm/dL Hct 23.8 L (39.0-53.0) % RDW 17.7 H (11.5-15.5) % Plt Count 146 L (150-450) k/uL Neutrophils # 12.9 H (1.3-7.7) k/uL ESR 62 H (0-15) mm/hr PT (9.0-12.0) sec INR (<1.2) APTT 53.5 H (22.0-30.0) sec Chloride (98-107) mmol/L BUN (9-20) mg/dL Glucose (74-99) mg/dL Calcium (8.4-10.2) mg/dL Iron (65-175) ug/dL Iron Saturation (15.00-50.00) Crossmatch Microbiology - Last 24 Hours (Table) 07/19/17 10:55 Gram Stain - Final Leg - Left Wound Culture - Final 07/19/17 10:55 Blood Culture - Preliminary Blood No Growth after 48 hours Assessment and Plan Assessment: Impression: #1 acute kidney injury secondary to prerenal process. Creatinine at baseline. #2 hyperkalemia resolved, currently low normal potassium. #3 metabolic acidosis resolved. #4 right renal mass suspicious for malignancy. #5 anemia Recommendations: #1 renal function back to baseline. #2 discontinue sodium bicarbonate #3 replace potassium supplement. #4 right renal mass suspicious for malignancy. As his renal function is back to baseline, with recent AKA, he is at high risk for contrast nephropathy. If renal functions remain stable by tomorrow, considering risk and benefit okay for CT with contrast. We will also use fluids before and after the procedure.
[2017-07-22] MEDS ORDERED: POTASSIUM CHLORIDE ORAL LIQUID 40 MEQ/30 ML CUP PO ONE (10:30)
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
[2017-07-22] MEDS: HEPARIN SODIUM,PORCINE/D5W PMX 25,000 UNIT in DEXTROSE/WATER 1 500ML.BAG IV SCH (13:35)
--- NOTE | 2017-07-22 13:55 | P.PN ---
Subjective patient has multiple medical issues going on at this point of time and patient was a valid by multiple medical physicians. Patient was initially admitted verified lower limb cellulitis left lower limb , patient later had Doppler of the left lower extremity which showed a DVT, patient was already on 0 alto which is being held because of her dark stools. Patient was started on Protonix gastric body was consulted infectious disease and nephrology evaluated the patient. Patient is also found to haveright renal mass on the ultrasound of the abdomen and bladder, walk worse compared to last hospitalization her last ultrasound,oncology was consulted. Patient's anti-correlation is on hold. Patient's IV fluids were discontinued as patient had issues with shortness of breath and crackles on lung exam did obtain a chest x-ray probably will need an echocardiogram as well.I was able to come in again with the patient weight via bedspread cutter 07/21/2017 patient is feeling much better today GI bleed improved his hemoglobin remains at 6 will transfuse 1 more unit of blood oncology attempt valid the patient.Can use to have leukocytosis 07/22/2017 Patient is feeling much better today even combative yesterday but the patient is bit tachycardic patient is in atrial fibrillation is already on anticoagulation patient the metoprolol dose will be increased and cardiology was consulted patient had normal ejection fraction. Constitutional: Denied any fatigue denied any fever. Cardio vascular: denied any chest pain, palpitations Gastrointestinal denied any nausea vomiting Pulmonary: Denied any shortness of breath cough Neurologic denied any new focal deficits Objective - Vital Signs Vital signs: Vital Signs Temp 100.5 F H 07/22/17 11:22 Pulse 118 H 07/22/17 13:29 Resp 16 07/22/17 13:19 BP 101/56 07/22/17 11:22 Pulse Ox 97 07/22/17 11:22 Intake & Output 07/21/17 07/22/17 07/22/17 18:59 06:59 18:59 Intake Total 1460 1324 Output Total 3000 1100 Balance -1540 -1100 1324 Weight 74.3 kg Intake: IV 466 Heparin Sodium,Porcine/ 216 D5w Pmx 25,000 unit In Dextrose/Water 1 500ml. bag @ 18 UNITS/KG/HR 26. 28 mls/hr IV .Q19H2M [facility] Rx#:[id number] Vancomycin 1,500 mg In 250 Sodium Chloride 0.9% 250 ml @ 125 mls/hr IVPB Q16H [facility] Rx#:[id number] Intake, IV Titration 500 Amount Heparin Sodium,Porcine/ 500 D5w Pmx 25,000 unit In Dextrose/Water 1 500ml. bag @ 18 UNITS/KG/HR 26. 28 mls/hr IV .Q19H2M [facility] Rx#:[id number] Oral 840 358 Blood Product 620 Rc As-1 Unit 310 [id number] Rc As-1 Unit 310 [id number] Output: Urine 3000 1100 Uretheral (Thomason) 2400 Other: Voiding Method Indwelling Catheter Indwelling Catheter Indwelling Catheter # Voids 1 - Exam GENERAL: The patient is alert and oriented x3, not in any acute distress. Well developed, well nourished. HEENT: Pupils are round and equally reacting to light. EOMI. No scleral icterus. No conjunctival pallor. Normocephalic, atraumatic. No pharyngeal erythema. No thyromegaly. CARDIOVASCULAR: S1 and S2 present. No murmurs, rubs, or gallops. PULMONARY: Rhonchus breath sounds significant expiratory wheezing was appreciated ABDOMEN: Soft, nontender, nondistended, normoactive bowel sounds. No palpable organomegaly. MUSCULOSKELETAL: No joint swelling or deformity. EXTREMITIES: No cyanosis, clubbing, or pedal edema. NEUROLOGICAL: Gross neurological examination did not reveal any focal deficits. SKIN: The latest of the left leg with skin breakdowns and previous bullous lesions significant redness extending almost up to the knee - Labs CBC & Chem 7: 07/22/17 05:41 07/22/17 05:41 Labs: Abnormal Lab Results - Last 24 Hours (Table) 07/19/17 07/21/17 07/21/17 Range/Units 12:15 05:51 18:15 WBC 14.8 H (3.8-10.6) k/uL RBC 2.56 L (4.30-5.90) m/uL Hgb 7.6 L (13.0-17.5) gm/dL Hct 24.5 L (39.0-53.0) % RDW 16.5 H (11.5-15.5) % Plt Count (150-450) k/uL Neutrophils # 12.0 H (1.3-7.7) k/uL ESR (0-15) mm/hr PT (9.0-12.0) sec INR (<1.2) APTT (22.0-30.0) sec Chloride (98-107) mmol/L BUN (9-20) mg/dL Glucose (74-99) mg/dL Calcium (8.4-10.2) mg/dL Iron 27 L (65-175) ug/dL Iron Saturation 11.02 L (15.00-50.00) Crossmatch See Detail 07/21/17 07/22/17 07/22/17 Range/Units 18:15 00:02 05:41 WBC (3.8-10.6) k/uL RBC (4.30-5.90) m/uL Hgb (13.0-17.5) gm/dL Hct (39.0-53.0) % RDW (11.5-15.5) % Plt Count (150-450) k/uL Neutrophils # (1.3-7.7) k/uL ESR (0-15) mm/hr PT 12.8 H (9.0-12.0) sec INR 1.3 H (<1.2) APTT 21.3 L 69.3 H (22.0-30.0) sec Chloride 111 H (98-107) mmol/L BUN 38 H (9-20) mg/dL Glucose 122 H (74-99) mg/dL Calcium 8.3 L (8.4-10.2) mg/dL Iron (65-175) ug/dL Iron Saturation (15.00-50.00) Crossmatch 07/22/17 07/22/17 Range/Units 05:41 05:41 WBC 15.8 H (3.8-10.6) k/uL RBC 2.48 L (4.30-5.90) m/uL Hgb 7.5 L (13.0-17.5) gm/dL Hct 23.8 L (39.0-53.0) % RDW 17.7 H (11.5-15.5) % Plt Count 146 L (150-450) k/uL Neutrophils # 12.9 H (1.3-7.7) k/uL ESR 62 H (0-15) mm/hr PT (9.0-12.0) sec INR (<1.2) APTT 53.5 H (22.0-30.0) sec Chloride (98-107) mmol/L BUN (9-20) mg/dL Glucose (74-99) mg/dL Calcium (8.4-10.2) mg/dL Iron (65-175) ug/dL Iron Saturation (15.00-50.00) Crossmatch Microbiology - Last 24 Hours (Table) 07/19/17 10:55 Blood Culture - Preliminary Blood No Growth after 72 hours 07/19/17 10:55 Gram Stain - Final Leg - Left Wound Culture - Final Assessment and Plan Plan: #1 left lower limbs allied his: Possibility of sepsis from that and the patient will be is on IV vancomycin. #2 right lower lobe pneumonia for which patient was started on Rocephin there is a possibility that patient has pneumonia. #3 COPD with acute exacerbation #4 anemia, chronic and macrocytic, IV blood transfusion 1 unit and further evaluation as mentioned above #5 hypertension: Patient is presently hypotensive due to intravascular depletion or sepsis. #6 hyperkalemia: improved now #7 acute renal dysfunction most probably prerenal Azotemia , improved now #8 possible upper GI bleed no dark stools today continue with Protonix gastroneurology evaluated the patient. #9 DVT of the left femoral vein: Patient's anti-correlation is on hold because of possibly of GI bleed #10 atrial fibrillation with rapid unclear rate: Beta maria del carmen dose was increased
--- NOTE | 2017-07-22 18:14 | P.PN ---
Subjective Progress Note Date: 07/22/17 Principal diagnosis: left leg pain 81-year-old male resents the emergency center with complaints of wound into his left leg. The patient speaks [place], if further information is coming from the chart at this time. As I enter the room the patient needs to urinate. He is given a urinal and probably urinates all over the floor and missed the urinal almost completely. To the patient's limited Uzbek he relates that he does have pain in the left leg. 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 Improved with the silvadene and wrap. Feels better today. but had gastrointestinal bleed. He had received a blood transfusion. Solar [employer] Systems Engineer is present today. It is apparent that the patient is feeling somewhat better. He has been seen by the urologist for the renal mass. Further workup has been requested. Objective - Vital Signs Vital signs: Vital Signs Temp 98.4 F 07/22/17 15:34 Pulse 123 H 07/22/17 15:34 Resp 24 07/22/17 15:34 BP 112/55 07/22/17 15:34 Pulse Ox 98 07/22/17 15:34 Intake & Output 07/21/17 07/22/17 07/22/17 18:59 06:59 18:59 Intake Total 1460 1504 Output Total 3000 1100 625 Balance -1540 -1100 879 Weight 74.3 kg Intake: IV 466 Heparin Sodium,Porcine/ 216 D5w Pmx 25,000 unit In Dextrose/Water 1 500ml. bag @ 18 UNITS/KG/HR 26. 28 mls/hr IV .Q19H2M [facility] Rx#:[id number] Vancomycin 1,500 mg In 250 Sodium Chloride 0.9% 250 ml @ 125 mls/hr IVPB Q16H [facility] Rx#:[id number] Intake, IV Titration 500 Amount Heparin Sodium,Porcine/ 500 D5w Pmx 25,000 unit In Dextrose/Water 1 500ml. bag @ 18 UNITS/KG/HR 26. 28 mls/hr IV .Q19H2M [facility] Rx#:[id number] Oral 840 538 Blood Product 620 Rc As-1 Unit 310 [id number] Rc As-1 Unit 310 [id number] Output: Urine 3000 1100 625 Uretheral (Thomason) 2400 Other: Voiding Method Indwelling Catheter Indwelling Catheter Indwelling Catheter # Voids 1 # Bowel Movements 1 - Exam 81-year-old male who seems to be comfortable. HEENT: Anicteric conjunctiva are pink and moist nasal mucosa grossly intact without significant lesions, there is no thrush. Poor dentition Neck: The neck is supple without significant lymphadenopathy or thyromegaly. Lungs: Good bilateral air entry without significant crackles scattered wheezes are heard. There is no significant bronchial sounds. There is no egophony or dullness. Heart: Irregular with an audible S1 and S2 soft S4. There is no significant murmur click or rub, PMI was nondisplaced. Abdomen: Positive bowel sounds soft and nontender without palpable masses or organomegaly. There was no guarding or rebound. Extremities: The upper extremities have excellent pulses they are symmetric, no significant petechiae or telangiectasia. No splinter hemorrhages were noted. The right lower extremity is intact. There are no open lesions. Left lower extremity reveals evidence of the extensive swelling from the foot to just below the knee. There is distinct discoloration. There appears to be a chronic ulceration to the lateral aspect of the ankle and of the lower leg. There is evidence of blistering and denuded skin around the anterior aspect of the lower leg in the calf area. It is tender. but improving with the Silvadene wrap. There has been some serous drainage but now improved. Neuro: Awake alert cooperative, - Labs CBC & Chem 7: 07/22/17 05:41 07/22/17 05:41 Labs: Abnormal Lab Results - Last 24 Hours (Table) 07/19/17 07/21/17 07/21/17 Range/Units 12:15 18:15 18:15 WBC 14.8 H (3.8-10.6) k/uL RBC 2.56 L (4.30-5.90) m/uL Hgb 7.6 L (13.0-17.5) gm/dL Hct 24.5 L (39.0-53.0) % RDW 16.5 H (11.5-15.5) % Plt Count (150-450) k/uL Neutrophils # 12.0 H (1.3-7.7) k/uL ESR (0-15) mm/hr PT 12.8 H (9.0-12.0) sec INR 1.3 H (<1.2) APTT 21.3 L (22.0-30.0) sec Chloride (98-107) mmol/L BUN (9-20) mg/dL Glucose (74-99) mg/dL Calcium (8.4-10.2) mg/dL Crossmatch See Detail 07/22/17 07/22/17 07/22/17 Range/Units 00:02 05:41 05:41 WBC 15.8 H (3.8-10.6) k/uL RBC 2.48 L (4.30-5.90) m/uL Hgb 7.5 L (13.0-17.5) gm/dL Hct 23.8 L (39.0-53.0) % RDW 17.7 H (11.5-15.5) % Plt Count 146 L (150-450) k/uL Neutrophils # 12.9 H (1.3-7.7) k/uL ESR 62 H (0-15) mm/hr PT (9.0-12.0) sec INR (<1.2) APTT 69.3 H (22.0-30.0) sec Chloride 111 H (98-107) mmol/L BUN 38 H (9-20) mg/dL Glucose 122 H (74-99) mg/dL Calcium 8.3 L (8.4-10.2) mg/dL Crossmatch 07/22/17 Range/Units 05:41 WBC (3.8-10.6) k/uL RBC (4.30-5.90) m/uL Hgb (13.0-17.5) gm/dL Hct (39.0-53.0) % RDW (11.5-15.5) % Plt Count (150-450) k/uL Neutrophils # (1.3-7.7) k/uL ESR (0-15) mm/hr PT (9.0-12.0) sec INR (<1.2) APTT 53.5 H (22.0-30.0) sec Chloride (98-107) mmol/L BUN (9-20) mg/dL Glucose (74-99) mg/dL Calcium (8.4-10.2) mg/dL Crossmatch Microbiology - Last 24 Hours (Table) 07/19/17 10:55 Blood Culture - Preliminary Blood No Growth after 72 hours 07/19/17 10:55 Gram Stain - Final Leg - Left Wound Culture - Final Laboratory Results WBC 15.8 k/uL (3.8-10.6) H 07/22/17 05:41 RBC 2.48 m/uL (4.30-5.90) L 07/22/17 05:41 Hgb 7.5 gm/dL (13.0-17.5) L 07/22/17 05:41 Hct 23.8 % (39.0-53.0) L 07/22/17 05:41 MCV 95.9 fL (80.0-100.0) 07/22/17 05:41 MCH 30.4 pg (25.0-35.0) 07/22/17 05:41 MCHC 31.7 g/dL (31.0-37.0) 07/22/17 05:41 RDW 17.7 % (11.5-15.5) H 07/22/17 05:41 Plt Count 146 k/uL (150-450) L 07/22/17 05:41 Neutrophils % 82 % 07/22/17 05:41 Neutrophils % (Manual) 72 % 07/20/17 03:54 Band Neutrophils % 3 % 07/20/17 03:54 Lymphocytes % 9 % 07/22/17 05:41 Lymphocytes % (Manual) 12 % 07/20/17 03:54 Monocytes % 4 % 07/22/17 05:41 Monocytes % (Manual) 7 % 07/20/17 03:54 Eosinophils % 4 % 07/22/17 05:41 Eosinophils % (Manual) 3 % 07/20/17 03:54 Basophils % 0 % 07/22/17 05:41 Metamyelocytes % 3 % 07/20/17 03:54 Neutrophils # 12.9 k/uL (1.3-7.7) H 07/22/17 05:41 Neutrophils # (Manual) 10.20 k/uL (1.3-7.7) H 07/20/17 03:54 Lymphocytes # 1.4 k/uL (1.0-4.8) 07/22/17 05:41 Lymphocytes # (Manual) 1.64 k/uL (1.0-4.8) 07/20/17 03:54 Monocytes # 0.5 k/uL (0-1.0) 07/22/17 05:41 Monocytes # (Manual) 0.96 k/uL (0-1.0) 07/20/17 03:54 Eosinophils # 0.6 k/uL (0-0.7) 07/22/17 05:41 Eosinophils # (Manual) 0.41 k/uL (0-0.7) 07/20/17 03:54 Basophils # 0.0 k/uL (0-0.2) 07/22/17 05:41 Metamyelocytes # (Man) 0.41 k/uL (0) H 07/20/17 03:54 Nucleated RBCs 0 /100 WBC (0-0) 07/20/17 03:54 Manual Slide Review Performed 07/20/17 03:54 Polychromasia Present 07/20/17 03:54 Hypochromasia Moderate 07/22/17 05:41 Poikilocytosis Slight 07/22/17 05:41 Anisocytosis Slight 07/22/17 05:41 Macrocytosis Slight 07/22/17 05:41 ESR 62 mm/hr (0-15) H 07/22/17 05:41 Retic Count 1.6 % (0.5-2.0) 07/22/17 05:41 PT 12.8 sec (9.0-12.0) H 07/21/17 18:15 INR 1.3 (<1.2) H 07/21/17 18:15 APTT 53.5 sec (22.0-30.0) H 07/22/17 05:41 Sodium 144 mmol/L (137-145) 07/22/17 05:41 Potassium 3.6 mmol/L (3.5-5.1) 07/22/17 05:41 Chloride 111 mmol/L (98-107) H 07/22/17 05:41 Carbon Dioxide 28 mmol/L (22-30) 07/22/17 05:41 Anion Gap 5 mmol/L 07/22/17 05:41 BUN 38 mg/dL (9-20) H 07/22/17 05:41 Creatinine 1.07 mg/dL (0.66-1.25) 07/22/17 05:41 Est GFR (MDRD) Af Amer >60 (>60 ml/min/1.73 sqM) 07/22/17 05:41 Est GFR (MDRD) Non-Af >60 (>60 ml/min/1.73 sqM) 07/22/17 05:41 Glucose 122 mg/dL (74-99) H 07/22/17 05:41 POC Glucose (mg/dL) 101 mg/dL (75-99) H 07/19/17 23:43 POC Glu Bus Girl ID Sandee Johnson 07/19/17 23:43 Calcium 8.3 mg/dL (8.4-10.2) L 07/22/17 05:41 Iron 27 ug/dL (65-175) L 07/21/17 05:51 TIBC 245 ug/dL (228-460) 07/21/17 05:51 Iron Saturation 11.02 (15.00-50.00) L 07/21/17 05:51 Ferritin 231.4 ng/mL (22.0-322.0) 07/21/17 05:51 Total Bilirubin 0.8 mg/dL (0.2-1.3) 07/21/17 05:51 AST 35 U/L (17-59) 07/21/17 05:51 ALT 43 U/L (21-72) 07/21/17 05:51 Alkaline Phosphatase 90 U/L (38-126) 07/21/17 05:51 NT-Pro-B Natriuret Pep 5130 pg/mL 07/19/17 10:55 Total Protein 5.5 g/dL (6.3-8.2) L 07/21/17 05:51 Albumin 2.8 g/dL (3.5-5.0) L 07/21/17 05:51 Vitamin B12 1232.0 pg/mL (200.0-944.0) H 07/19/17 18:01 Urine Color Light Yellow 07/19/17 13:33 Urine Appearance Clear (Clear) 07/19/17 13:33 Urine pH 5.0 (5.0-8.0) 07/19/17 13:33 Ur Specific [place] 1.011 (1.001-1.035) 07/19/17 13:33 Urine Protein Negative (Negative) 07/19/17 13:33 Urine Glucose (UA) Negative (Negative) 07/19/17 13:33 Urine Ketones Negative (Negative) 07/19/17 13:33 Urine Blood Moderate (Negative) H 07/19/17 13:33 Urine Nitrite Negative (Negative) 07/19/17 13:33 Urine Bilirubin Negative (Negative) 07/19/17 13:33 Urine Urobilinogen <2.0 mg/dL (<2.0) 07/19/17 13:33 Ur Leukocyte Esterase Negative (Negative) 07/19/17 13:33 Urine RBC 50 /hpf (0-5) H 07/19/17 13:33 Urine WBC 2 /hpf (0-5) 07/19/17 13:33 Ur Squamous Epith Cells <1 /hpf (0-4) 07/19/17 13:33 Urine Mucus Rare /hpf (None) H 07/19/17 13:33 Ur Random Creatinine 36.9 mg/dL 07/19/17 14:37 Ur Random Sodium 71 mmol/L (30-90) 07/19/17 14:37 Stool Occult Blood Positive (Negative) 07/22/17 14:15 Vancomycin Trough 8.9 ug/mL 07/22/17 05:41 Blood Type B Positive 07/19/17 12:15 Blood Type Confirm B Positive 07/19/17 10:55 Blood Type Recheck CABO Indicated 07/19/17 12:15 Antibody Screen NEGATIVE 07/19/17 12:15 Crossmatch See Detail 07/19/17 12:15 Spec Expiration Date 07/22/2017 - 5 07/19/17 12:15 Microbiology 07/19/17 10:55 Blood Blood Culture - Preliminary No Growth after 72 hours 07/19/17 10:55 Leg - Left Gram Stain - Final 07/19/17 10:55 Leg - Left Wound Culture - Final 07/19/17 13:33 Urine,Clean Catch Urine Culture - Final Assessment and Plan (1) Left leg cellulitis Narrative/Plan: 81-year-old male presents to hospital with his family with complaints of increasing difficulty to his left leg. It had blistered and had drainage and had redness. Suddenly concerns to a cellulitis. Local wound care with Silvadene will be initiated with some rolled gauze and Jayme to try to help the site. Wound culture is pending. Antimicrobial therapy has been an issue with vancomycin and ceftriaxone for now. A duplex was requested and there is concerned to deep venous thrombosis although may be old the patient was unable to cooperate well for the exam. Since center. Is now present he may be able to cooperate better for a relook. Clotting is of some concern given the data of the complex right renal mass and concerns to a renal carcinoma that is worsened since September of this year. ER notes are reviewed from the September stay. Which point in time the data was transmitted to his primary care physician who was to have follow-up with the outpatient setting. At this time it is unclear what has occurred. Imaging at that time revealed evidence of abnormalities in his lung which family related poor old and being found the outpatient setting also. Leukocytosis appears related to the process in the left leg. Is also concerned that he has acute renal failure that could be worsening because of the lesion on the kidney and some process. He has hyperkalemia that is being treated. Urinalysis is benign for infection. He has not been seen by urology and further workup was requested for the renal mass. As noted concerned that this could be a renal cell carcinoma resulting in the hypercoagulable state and then the deep venous thrombosis of the left leg which then resulted in the significant skin lesions. The patient has no fever. The lesions of the left leg and responding to current antibiotic and local wound care. He is receiving evaluation for the deep venous thrombosis, but with the gastrointestinal bleed anticoagulation is problematic. Unclear what the discharge plan will be at this time Current Visit: Yes Status: Acute Code(s): L03.116 - CELLULITIS OF LEFT LOWER LIMB SNOMED Code(s): 615623551 (2) Acute renal failure Current Visit: Yes Status: Acute Code(s): N17.9 - ACUTE KIDNEY FAILURE, UNSPECIFIED SNOMED Code(s): 89973573 (3) Right renal mass Current Visit: Yes Status: Acute Code(s): N28.89 - OTHER SPECIFIED DISORDERS OF KIDNEY AND URETER SNOMED Code(s): 299370776
[2017-07-22] MEDS: cefTRIAXone IN SWFI 1,000 MG/10 ML SYRINGE IVP SCH (21:06)
[2017-07-22] MEDS: METOPROLOL TARTRATE 50 MG TAB PO SCH (21:07)
[2017-07-22] MEDS ORDERED: HYDROmorphone 1 MG/ML 1 ML SYRINGE IVP PRN (21:56)
[2017-07-22] MEDS: ACETAMINOPHEN TAB 325 MG TAB PO PRN (23:16)
[2017-07-23] MEDS: HEPARIN SODIUM,PORCINE/D5W PMX 25,000 UNIT in DEXTROSE/WATER 1 500ML.BAG IV SCH (05:48)
[2017-07-23] MEDS: PANTOPRAZOLE 40 MG TABLET PO SCH ×2 (06:44→15:42)
[2017-07-23 07:06] LABS: Anisocytosis Slight; Basophils % (A) 0 %; CH 30.4; CHCM 31.4; Eosinophils # (A) 0.5 k/uL (0-0.7); Eosinophils % (A) 3 %; HCT 24.8 % (39.0-53.0); HDW 3.44; HGB 7.5 gm/dL (13.0-17.5); Hypochromasia Moderate; Luc # (Auto) 0.18; Luc % (Auto) 1; Lymphocytes % (A) 7 %; MCH 29.7 pg (25.0-35.0); MCHC 30.4 g/dL (31.0-37.0); MCV 97.5 fL (80.0-100.0); Macrocytosis Slight; Mean Platelet Volume 6.7; Monocytes # (A) 0.6 k/uL (0-1.0); Monocytes % (A) 4 %; Neutrophils # (A) 13.5 k/uL (1.3-7.7); Neutrophils % (A) 85 %; Poikilocytosis Slight; RBC 2.54 m/uL (4.30-5.90); RDW 16.9 % (11.5-15.5); WBC 15.9 k/uL (3.8-10.6); WBC (Perox) 15.29
[2017-07-23 07:14] LABS: Anion Gap 8 mmol/L; Blood Urea Nitrogen 26 mg/dL (9-20); Calcium 7.3 mg/dL (8.4-10.2); Carbon Dioxide 23 mmol/L (22-30); Chloride 107 mmol/L (98-107); Glucose 134 mg/dL (74-99); Non-African American GFR(MDRD) >60 (>60 ml/min/1.73 sqM); Potassium 3.2 mmol/L (3.5-5.1); Sodium 138 mmol/L (137-145)
[2017-07-23] MEDS ORDERED: Potassium Replacement Protocol 1 EACH MISC MISCELLANE PRN (08:00)
[2017-07-23] MEDS: IPRATROPIUM-ALBUTEROL 3 ML NEB INHALATION SCH ×4 (08:42→20:22)
[2017-07-23] MEDS: METOPROLOL TARTRATE 50 MG TAB PO SCH ×3 (08:45→21:42)
[2017-07-23] MEDS: POTASSIUM CHLORIDE ER 20 MEQ TAB.ER PO SCH ×2 (08:46→10:09)
[2017-07-23] MEDS: TAMSULOSIN 0.4 MG CAP.ER.24H PO SCH (08:46)
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
[2017-07-23] MEDS ORDERED: Magnesium Replacement Protocol 1 EACH MISC MISCELLANE PRN (10:10)
--- NOTE | 2017-07-23 10:55 | P.PN ---
Subjective Progress Note Date: 07/23/17 Principal diagnosis: Acute kidney injury and right renal mass Feeling better no nausea vomiting diarrhea. Making good amount of urine. No hematuria or dysuria. Objective - Vital Signs Vital signs: Vital Signs Temp 97 F L 07/23/17 08:30 Pulse 124 H 07/23/17 08:44 Resp 20 07/23/17 08:30 BP 118/58 07/23/17 08:30 Pulse Ox 97 07/23/17 08:30 Intake & Output 07/22/17 07/23/17 07/23/17 19:59 06:59 18:59 Intake Total 180 Output Total Balance 180 Weight Intake: IV Heparin Sodium,Porcine/ D5w Pmx 25,000 unit In Dextrose/Water 1 500ml. bag @ 18 UNITS/KG/HR 26. 28 mls/hr IV .Q19H2M [facility] Rx#:[id number] Vancomycin 1,500 mg In Sodium Chloride 0.9% 250 ml @ 125 mls/hr IVPB Q16H [facility] Rx#:[id number] Intake, IV Titration Amount Heparin Sodium,Porcine/ D5w Pmx 25,000 unit In Dextrose/Water 1 500ml. bag @ 18 UNITS/KG/HR 26. 28 mls/hr IV .Q19H2M [facility] Rx#:[id number] Oral 180 Output: Urine Other: Voiding Method # Bowel Movements - Exam Lying in bed no acute distress s1 S2 heard Lungs clear to auscultation No edema - Labs CBC & Chem 7: 07/23/17 06:28 07/23/17 06:28 Labs: Abnormal Lab Results - Last 24 Hours (Table) 07/21/17 07/22/17 07/23/17 Range/Units 17:36 05:41 06:28 WBC 15.9 H (3.8-10.6) k/uL RBC 2.54 L (4.30-5.90) m/uL Hgb 7.5 L (13.0-17.5) gm/dL Hct 24.8 L (39.0-53.0) % MCHC 30.4 L (31.0-37.0) g/dL RDW 16.9 H (11.5-15.5) % Neutrophils # 13.5 H (1.3-7.7) k/uL APTT (22.0-30.0) sec Potassium (3.5-5.1) mmol/L BUN (9-20) mg/dL Glucose (74-99) mg/dL Calcium (8.4-10.2) mg/dL Iron 27 L (65-175) ug/dL Iron Saturation 10.98 L (15.00-50.00) Total Protein (PEP) 5.1 L (6.2-8.2) g/dL Free [place] LC, Quant 4.90 H (0.33-1.94) mg/dL 07/23/17 07/23/17 Range/Units 06:28 07:47 WBC (3.8-10.6) k/uL RBC (4.30-5.90) m/uL Hgb (13.0-17.5) gm/dL Hct (39.0-53.0) % MCHC (31.0-37.0) g/dL RDW (11.5-15.5) % Neutrophils # (1.3-7.7) k/uL APTT 46.5 H (22.0-30.0) sec Potassium 3.2 L (3.5-5.1) mmol/L BUN 26 H (9-20) mg/dL Glucose 134 H (74-99) mg/dL Calcium 7.3 L (8.4-10.2) mg/dL Iron (65-175) ug/dL Iron Saturation (15.00-50.00) Total Protein (PEP) (6.2-8.2) g/dL Free [place] LC, Quant (0.33-1.94) mg/dL Microbiology - Last 24 Hours (Table) 07/19/17 10:55 Blood Culture - Preliminary Blood No Growth after 72 hours Assessment and Plan Assessment: Impression: #1 acute kidney injury secondary to prerenal process creatinine back to baseline. #2 hyperkalemia resolves currently hypokalemic. #3 metabolic acidosis resolved. #4 right renal mass suspicious for malignancy. #5 anemia. Recommendations: #1 renal function back to baseline. #2 currently on potassium replacement. #3 appreciate urology input . Discussed with the patient with spanish medical interpreter at bedside regarding workup for renal mass. As his renal function is stable and the concern for renal mass, he is agreeable for CT with contrast for further workup. We will give him fluids pre-and post procedure to prevent from contrast nephropathy as he just recovered from [facility] and is at high risk.
[2017-07-23] MEDS: SODIUM CHLORIDE 0.9% 1,000 ML IV SCH (11:22)
[2017-07-23] MEDS: MAGNESIUM SULFATE-D5W PMX 1 GM in DEXTROSE/WATER 1 100ML.BAG IVPB SCH ×2 (11:23→12:49)
--- NOTE | 2017-07-23 14:09 | P.PN ---
Subjective patient has multiple medical issues going on at this point of time and patient was a valid by multiple medical physicians. Patient was initially admitted verified lower limb cellulitis left lower limb , patient later had Doppler of the left lower extremity which showed a DVT, patient was already on 0 alto which is being held because of her dark stools. Patient was started on Protonix gastric body was consulted infectious disease and nephrology evaluated the patient. Patient is also found to haveright renal mass on the ultrasound of the abdomen and bladder, walk worse compared to last hospitalization her last ultrasound,oncology was consulted. Patient's anti-correlation is on hold. Patient's IV fluids were discontinued as patient had issues with shortness of breath and crackles on lung exam did obtain a chest x-ray probably will need an echocardiogram as well.I was able to come in again with the patient weight via underwear finisher 07/21/2017 patient is feeling much better today GI bleed improved his hemoglobin remains at 6 will transfuse 1 more unit of blood oncology attempt valid the patient.Can use to have leukocytosis 07/22/2017 Patient is feeling much better today even combative yesterday but the patient is bit tachycardic patient is in atrial fibrillation is already on anticoagulation patient the metoprolol dose will be increased and cardiology was consulted patient had normal ejection fraction. 07/23/2017 hemoglobin is stable no overnight events patient heart rate is getting better. Constitutional: Denied any fatigue denied any fever. Cardio vascular: denied any chest pain, palpitations Gastrointestinal denied any nausea vomiting Pulmonary: Denied any shortness of breath cough Neurologic denied any new focal deficits Objective - Vital Signs Vital signs: Vital Signs Temp 99.7 F H 07/23/17 11:22 Pulse 84 07/23/17 12:04 Resp 20 07/23/17 11:22 BP 111/52 07/23/17 11:22 Pulse Ox 96 07/23/17 11:22 Intake & Output 07/22/17 07/23/17 07/23/17 19:59 06:59 18:59 Intake Total 588 Output Total Balance 588 Weight Intake: IV 408 Heparin Sodium,Porcine/ 208 D5w Pmx 25,000 unit In Dextrose/Water 1 500ml. bag @ 18 UNITS/KG/HR 26. 28 mls/hr IV .Q19H2M [facility] Rx#:[id number] Magnesium Sulfate-D5w Pmx 200 1 gm In Dextrose/Water 1 100ml.bag @ 100 mls/hr IVPB Q1H [facility] Rx#: [id number] Vancomycin 1,500 mg In Sodium Chloride 0.9% 250 ml @ 125 mls/hr IVPB Q16H [facility] Rx#:[id number] Intake, IV Titration Amount Heparin Sodium,Porcine/ D5w Pmx 25,000 unit In Dextrose/Water 1 500ml. bag @ 18 UNITS/KG/HR 26. 28 mls/hr IV .Q19H2M [facility] Rx#:[id number] Oral 180 Output: Urine Other: Voiding Method Indwelling Catheter # Bowel Movements - Exam GENERAL: The patient is alert and oriented x3, not in any acute distress. Well developed, well nourished. HEENT: Pupils are round and equally reacting to light. EOMI. No scleral icterus. No conjunctival pallor. Normocephalic, atraumatic. No pharyngeal erythema. No thyromegaly. CARDIOVASCULAR: S1 and S2 present. No murmurs, rubs, or gallops. PULMONARY: Rhonchus breath sounds significant expiratory wheezing was appreciated ABDOMEN: Soft, nontender, nondistended, normoactive bowel sounds. No palpable organomegaly. MUSCULOSKELETAL: No joint swelling or deformity. EXTREMITIES: No cyanosis, clubbing, or pedal edema. NEUROLOGICAL: Gross neurological examination did not reveal any focal deficits. SKIN: The latest of the left leg with skin breakdowns and previous bullous lesions significant redness extending almost up to the knee - Labs CBC & Chem 7: 07/23/17 06:28 07/23/17 06:28 Labs: Abnormal Lab Results - Last 24 Hours (Table) 07/21/17 07/22/17 07/23/17 Range/Units 17:36 05:41 06:28 WBC 15.9 H (3.8-10.6) k/uL RBC 2.54 L (4.30-5.90) m/uL Hgb 7.5 L (13.0-17.5) gm/dL Hct 24.8 L (39.0-53.0) % MCHC 30.4 L (31.0-37.0) g/dL RDW 16.9 H (11.5-15.5) % Neutrophils # 13.5 H (1.3-7.7) k/uL APTT (22.0-30.0) sec Potassium (3.5-5.1) mmol/L BUN (9-20) mg/dL Glucose (74-99) mg/dL Calcium (8.4-10.2) mg/dL Iron 27 L (65-175) ug/dL Iron Saturation 10.98 L (15.00-50.00) Total Protein (PEP) 5.1 L (6.2-8.2) g/dL Free [place] LC, Quant 4.90 H (0.33-1.94) mg/dL 07/23/17 07/23/17 Range/Units 06:28 07:47 WBC (3.8-10.6) k/uL RBC (4.30-5.90) m/uL Hgb (13.0-17.5) gm/dL Hct (39.0-53.0) % MCHC (31.0-37.0) g/dL RDW (11.5-15.5) % Neutrophils # (1.3-7.7) k/uL APTT 46.5 H (22.0-30.0) sec Potassium 3.2 L (3.5-5.1) mmol/L BUN 26 H (9-20) mg/dL Glucose 134 H (74-99) mg/dL Calcium 7.3 L (8.4-10.2) mg/dL Iron (65-175) ug/dL Iron Saturation (15.00-50.00) Total Protein (PEP) (6.2-8.2) g/dL Free [place] LC, Quant (0.33-1.94) mg/dL Microbiology - Last 24 Hours (Table) 07/19/17 10:55 Blood Culture - Preliminary Blood No Growth after 96 hours Assessment and Plan Plan: #1 left lower limbs allied his: Possibility of sepsis from that and the patient will be is on IV vancomycin. #2 right lower lobe pneumonia for which patient is on Rocephin there is a possibility that patient has pneumonia. #3 COPD with acute exacerbation #4 anemia, chronic and macrocytic, IV blood transfusion 1 unit and further evaluation as mentioned above #5 hypertension: Patient is presently hypotensive due to intravascular depletion or sepsis. #6 hyperkalemia: improved now #7 acute renal dysfunction most probably prerenal Azotemia , improved now #8 possible upper GI bleed no dark stools today continue with Protonix gastroneurology evaluated the patient. #9 DVT of the left femoral vein: Patient's anti-correlation is on hold because of possibly of GI bleed #10 atrial fibrillation presently on rate controlled continuous 50 twice a day of metoprolol
[2017-07-23] MEDS: VANCOMYCIN 1,500 MG in SODIUM CHLORIDE 0.9% 250 ML IVPB SCH (15:42)
[2017-07-23] MEDS ORDERED: POTASSIUM CHLORIDE ER 20 MEQ TAB.ER PO SCH (18:00)
[2017-07-23] MEDS ORDERED: RX INFO: IV CONTRAST WAS GIVEN 1 EACH MISC MISCELLANE PRN (19:28)
[2017-07-23] MEDS: cefTRIAXone IN SWFI 1,000 MG/10 ML SYRINGE IVP SCH (21:41)
[2017-07-23] MEDS: ACETAMINOPHEN TAB 325 MG TAB PO PRN (21:48)
[2017-07-24] MEDS: HEPARIN SODIUM,PORCINE/D5W PMX 25,000 UNIT in DEXTROSE/WATER 1 500ML.BAG IV SCH (00:29)
[2017-07-24] MEDS: SODIUM CHLORIDE 0.9% 1,000 ML IV SCH ×2 (02:57→17:58)
[2017-07-24 05:42] LABS: Anisocytosis Slight; Basophils # (A) 0.1 k/uL (0-0.2); Basophils % (A) 0 %; CH 28.8; CHCM 31.1; Eosinophils # (A) 0.5 k/uL (0-0.7); Eosinophils % (A) 4 %; HDW 3.22; Hypochromasia Moderate; Luc # (Auto) 0.19; Luc % (Auto) 1; Lymphocytes # (A) 0.7 k/uL (1.0-4.8); Lymphocytes % (A) 5 %; MCV 93.6 fL (80.0-100.0); Mean Platelet Volume 7.9; Monocytes # (A) 0.4 k/uL (0-1.0); Monocytes % (A) 3 %; Neutrophils # (A) 11.2 k/uL (1.3-7.7); Neutrophils % (A) 86 %; RBC 2.14 m/uL (4.30-5.90); RDW 17.2 % (11.5-15.5); WBC (Perox) 13.47
[2017-07-24] MEDS: PANTOPRAZOLE 40 MG TABLET PO SCH ×2 (06:04→17:57)
[2017-07-24 06:11] LABS: HGB 6.4 gm/dL (13.0-17.5)
[2017-07-24 06:46] LABS: Anion Gap 4 mmol/L; Blood Urea Nitrogen 25 mg/dL (9-20); Carbon Dioxide 23 mmol/L (22-30); Chloride 107 mmol/L (98-107); Glucose 112 mg/dL (74-99); Magnesium 2.2 mg/dL (1.6-2.3); Non-African American GFR(MDRD) >60 (>60 ml/min/1.73 sqM); Potassium 3.8 mmol/L (3.5-5.1); Sodium 134 mmol/L (137-145)
[2017-07-24] MEDS ORDERED: VANCOMYCIN TROUGH DUE 1 EACH MISC MISCELLANE ONE (07:00)
[2017-07-24] MEDS: IOHEXOL 350 MG/ML 25 ML BOTTLE (ORAL USE) PO PRN ×2 (07:35→08:27)
[2017-07-24] MEDS: IPRATROPIUM-ALBUTEROL 3 ML NEB INHALATION SCH ×4 (07:50→20:08)
[2017-07-24] MEDS: VANCOMYCIN 1,500 MG in SODIUM CHLORIDE 0.9% 250 ML IVPB SCH ×2 (08:28→22:57)
--- NOTE | 2017-07-24 10:24 | CT ---
EXAMINATION TYPE: CT abdomen pelvis w con DATE OF EXAM: 07/24/2017 COMPARISON: 07/19/2017 ultrasound and 09/19/2016 ultrasound. HISTORY: Renal mass CT DLP: mGycm Automated exposure control for dose reduction was used. TECHNIQUE: Helical acquisition of images was performed from the lung bases through the pelvis. CONTRAST: 100 mL of Omnipaque 300 was utilized for intravenous contrast and oral contrast was administered per protocol. FINDINGS: LUNG BASES: Small right and trace left pleural effusions with bibasilar subsegmental atelectasis are present as well as partial visualization of a lingular nodule measuring 2.1 x 1.9 cm also suspicious for metastasis. LIVER/GB: Within the left hepatic lobe in segment 2 there is a and arterial enhancing 1.5 x 1.3 cm le lena. Additional probable hepatic cyst measures 8 mm in the left hepatic lobe. Single punctate granul omas also seen in segment 8.. PANCREAS: No significant abnormality is seen. SPLEEN: No significant abnormality is seen. ADRENALS: No significant abnormality is seen. KIDNEYS/ADENOPATHY: Partially exophytic right superior to midpole mass extending beyond the lower ghazala e measuring 9.8 x 6.0 x 6.3 cm has enlarged from the prior exam of 09/19/2016 where it measured 5.3 x 6 .2 x 4.6 cm. This is complex and internally solid abutting at least the superior calyces on sagittal series 7 image 55. The left renal vein is not well opacified and therefore tumor thrombus cannot be d efinitively identified, however there is no enlargement asymmetrically in comparison to the left. Sma ller bilateral simple appearing renal cysts are present. Extensive adenopathy and conglomeration of pericaval lymph nodes impresses upon the superior mesenter ic vein, inferior vena cava and left renal vein measuring 6.2 x 4.8 x 4.2 cm. Other smaller portacava l, peripancreatic and periaortic lymph nodes are also favored to represent metastasis. The next large st conglomeration is seen anterior to the aorta measuring up to 2.7 cm on series 7 image 42. The comm on bile duct cannot be from these masses and the gallbladder appears unremarkable on CT wit hout right upper quadrant fat stranding. Right external chain iliac adenopathy is also present measuring 2.2 cm in short axis. Left-sided supe rficial inguinal adenopathy measures up tor 1.1 cm short axis. FREE AIR: No free air is visualized. REPRODUCTIVE ORGANS: The prostate gland is diffusely enlarged and heterogenous measuring up to 6.5 cm in transverse dimension. Bilateral fat filled inguinal hernias are seen. URINARY BLADDER: Thomason catheter is present within the incompletely distended urinary bladder. OSSEOUS STRUCTURES: Extensive degenerative changes are seen at the lumbosacral junction and to a les ser degree throughout the visualized thoracolumbar spine. No suspicious osseous lesions are identifie d. BOWEL: No significant abnormality is seen. No evidence of obstruction. IMPRESSION: 1. 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 CONSIDERATION FOR PERCUTANEOUS BIOPSY SHOULD BE GIVEN. THIS MASS IS PREDOMINANTLY EXOPHYTIC BUT ABUTS A SUPERIOR MINOR CALYX. NO ASYMMETRY IN RENAL VEIN SIZE TO SUGG EST THROMBOSIS. EXTENSIVE ADENOPATHY WITHIN THE ABDOMEN AND PELVIS SUGGESTIVE OF METASTASIS. PARTIALL Y VISUALIZED LINGULAR PULMONARY NODULE IS ALSO SUGGESTIVE OF METASTASIS. 2. ARTERIALLY ENHANCING HEPATIC LESION WHICH COULD REPRESENT METASTASIS OR ARTERIAL PORTAL SHUNT I T DOES APPEAR ELONGATED. ADDITIONAL TOO SMALL TO ACCURATELY CHARACTERIZE HEPATIC LESION IS FAVORED TO REPRESENT A CYST. 3. GROSSLY HETEROGENOUS AND ENLARGED PROSTATE GLAND. 4. SMALL RIGHT AND TRACE LEFT PLEURAL EFFUSIONS.
[2017-07-24] MEDS: METOPROLOL TARTRATE 50 MG TAB PO SCH ×3 (11:10→19:55)
[2017-07-24] MEDS: TAMSULOSIN 0.4 MG CAP.ER.24H PO SCH (11:10)
--- NOTE | 2017-07-24 14:29 | P.PN ---
Subjective patient has multiple medical issues going on at this point of time and patient was a valid by multiple medical physicians. Patient was initially admitted verified lower limb cellulitis left lower limb , patient later had Doppler of the left lower extremity which showed a DVT, patient was already on 0 alto which is being held because of her dark stools. Patient was started on Protonix gastric body was consulted infectious disease and nephrology evaluated the patient. Patient is also found to haveright renal mass on the ultrasound of the abdomen and bladder, walk worse compared to last hospitalization her last ultrasound,oncology was consulted. Patient's anti-correlation is on hold. Patient's IV fluids were discontinued as patient had issues with shortness of breath and crackles on lung exam did obtain a chest x-ray probably will need an echocardiogram as well.I was able to come in again with the patient weight via architect 07/21/2017 patient is feeling much better today GI bleed improved his hemoglobin remains at 6 will transfuse 1 more unit of blood oncology attempt valid the patient.Can use to have leukocytosis 07/22/2017 Patient is feeling much better today even combative yesterday but the patient is bit tachycardic patient is in atrial fibrillation is already on anticoagulation patient the metoprolol dose will be increased and cardiology was consulted patient had normal ejection fraction. 07/23/2017 hemoglobin is stable no overnight events patient heart rate is getting better. 07/24/2017 Patient started having dark stools again IV heparin was discontinued gastroenterology and hematology and following the patient patient had a CT of the abdomen which she showed the mass which may need a biopsy, decision regarding biopsy as per oncology Constitutional: Denied any fatigue denied any fever. Cardio vascular: denied any chest pain, palpitations Gastrointestinal denied any nausea vomiting Pulmonary: Denied any shortness of breath cough Neurologic denied any new focal deficits Objective - Vital Signs Vital signs: Vital Signs Temp 96.9 F L 07/24/17 11:00 Pulse 84 07/24/17 11:34 Resp 18 07/24/17 11:00 BP 91/55 07/24/17 11:00 Pulse Ox 100 07/24/17 11:00 Intake & Output 07/23/17 07/24/17 07/24/17 18:59 06:59 18:59 Intake Total 588 1655.736 240 Output Total 500 650 Balance 88 1005.736 240 Weight 72.3 kg Intake: IV 408 Heparin Sodium,Porcine/ 208 D5w Pmx 25,000 unit In Dextrose/Water 1 500ml. bag @ 18 UNITS/KG/HR 26. 28 mls/hr IV .Q19H2M SOL Rx#:[id number] Magnesium Sulfate-D5w Pmx 200 1 gm In Dextrose/Water 1 100ml.bag @ 100 mls/hr IVPB Q1H SOL Rx#: [id number] Intake, IV Titration 1419.736 Amount Heparin Sodium,Porcine/ 644.736 D5w Pmx 25,000 unit In Dextrose/Water 1 500ml. bag @ 18 UNITS/KG/HR 26. 28 mls/hr IV .Q19H2M SOL Rx#:[id number] Sodium Chloride 0.9% 1, 775 000 ml @ 75 mls/hr IV . [id number] SOL Rx#:[id number] Oral 180 236 240 Output: Urine 500 650 Other: Voiding Method Indwelling Catheter Indwelling Catheter Indwelling Catheter - Exam GENERAL: The patient is alert and oriented x3, not in any acute distress. Well developed, well nourished. HEENT: Pupils are round and equally reacting to light. EOMI. No scleral icterus. No conjunctival pallor. Normocephalic, atraumatic. No pharyngeal erythema. No thyromegaly. CARDIOVASCULAR: S1 and S2 present. No murmurs, rubs, or gallops. PULMONARY: Rhonchus breath sounds significant expiratory wheezing was appreciated ABDOMEN: Soft, nontender, nondistended, normoactive bowel sounds. No palpable organomegaly. MUSCULOSKELETAL: No joint swelling or deformity. EXTREMITIES: No cyanosis, clubbing, or pedal edema. NEUROLOGICAL: Gross neurological examination did not reveal any focal deficits. SKIN: The latest of the left leg with skin breakdowns and previous bullous lesions significant redness extending almost up to the knee, redness since allied this improved significantly - Labs CBC & Chem 7: 07/24/17 05:32 07/24/17 05:32 Labs: Abnormal Lab Results - Last 24 Hours (Table) 07/22/17 07/24/17 07/24/17 Range/Units 05:41 05:32 05:32 WBC 13.0 H (3.8-10.6) k/uL RBC 2.14 L (4.30-5.90) m/uL Hgb 6.4 L* (13.0-17.5) gm/dL Hct 20.0 L* (39.0-53.0) % RDW 17.2 H (11.5-15.5) % Neutrophils # 11.2 H (1.3-7.7) k/uL Lymphocytes # 0.7 L (1.0-4.8) k/uL APTT 43.7 H (22.0-30.0) sec Sodium (137-145) mmol/L BUN (9-20) mg/dL Glucose (74-99) mg/dL Calcium (8.4-10.2) mg/dL RBC Folate 932 H (280 - 791) ng/mL Crossmatch 07/24/17 07/24/17 Range/Units 05:32 12:20 WBC (3.8-10.6) k/uL RBC (4.30-5.90) m/uL Hgb (13.0-17.5) gm/dL Hct (39.0-53.0) % RDW (11.5-15.5) % Neutrophils # (1.3-7.7) k/uL Lymphocytes # (1.0-4.8) k/uL APTT (22.0-30.0) sec Sodium 134 L (137-145) mmol/L BUN 25 H (9-20) mg/dL Glucose 112 H (74-99) mg/dL Calcium 7.0 L (8.4-10.2) mg/dL RBC Folate (280 - 791) ng/mL Crossmatch See Detail Microbiology - Last 24 Hours (Table) 07/19/17 10:55 Blood Culture - Preliminary Blood No Growth after 120 hours Assessment and Plan Plan: #1 left lower limbs allied his: Possibility of sepsis from that and the patient will be is on IV vancomycin. #2 right lower lobe pneumonia for which patient is on Rocephin there is a possibility that patient has pneumonia. #3 COPD with acute exacerbation #4 anemia, chronic and macrocytic, patient does have acute GI bleed as well patient will be transferred 1 more unit of blood #5 hypertension: Patient is presently hypotensive due to intravascular depletion or sepsis. #6 hyperkalemia: improved now #7 acute renal dysfunction most probably prerenal Azotemia , improved now #8 possible upper GI bleed no dark stools today continue with Protonix gastroneurology evaluated the patient. #9 DVT of the left femoral vein: Patient's anticoagulation is on hold because of recurrent GI bleed #10 atrial fibrillation presently on rate controlled continuous 50 twice a day of metoprolol #11 renal mass, right sided will need a biopsy complex renal mass
--- NOTE | 2017-07-24 15:16 | P.PN ---
Subjective Progress Note Date: 07/24/17 Principal diagnosis: General malaise This is an 81-year-old gentleman who is from [place] and does not speak [place] Island[place] very well, he presented to the hospital with left lower extremity discomfort, he was diagnosed with cellulitis and started on an antibiotic. Patient is also being treated for exacerbation of COPD. Patient has history of atrial fibrillation, chronic persistent, on anticoagulation as an outpatient as well as beta [place]ia [place]. He was initially transferred to [facility] because of atrial fibrillation with rapid ventricular response. When patient presented to the hospital he was found to be severely anemic with a hemoglobin around 6, he did receive a unit of packed red blood cells. His hemoglobin today is 6.4. Patient was also found to have a left renal mass and is being followed by urology service. He underwent an echocardiogram with Doppler study which revealed a normal left ventricular systolic function with mild aortic stenosis and mild to moderate mitral regurgitation, mild to moderate tricuspid regurg. Heart rate today is in the 80s to 90s. Because of the drop in hemoglobin and again today his IV heparin was discontinued. Patient will receive another unit of packed red blood cells today. From cardiology's perspective, we will follow this patient with you now on an as-needed basis only, please don't hesitate to call with any questions. Objective - Vital Signs Vital signs: Vital Signs Temp 97.8 F 07/24/17 14:43 Pulse 105 H 07/24/17 14:43 Resp 18 07/24/17 14:43 BP 122/61 07/24/17 14:43 Pulse Ox 96 07/24/17 14:43 Intake & Output 07/23/17 07/24/17 07/24/17 18:59 06:59 18:59 Intake Total 588 1655.736 240 Output Total 500 650 Balance 88 1005.736 240 Weight 72.3 kg Intake: IV 408 Heparin Sodium,Porcine/ 208 D5w Pmx 25,000 unit In Dextrose/Water 1 500ml. bag @ 18 UNITS/KG/HR 26. 28 mls/hr IV .Q19H2M SOL Rx#:[id number] Magnesium Sulfate-D5w Pmx 200 1 gm In Dextrose/Water 1 100ml.bag @ 100 mls/hr IVPB Q1H SOL Rx#: [id number] Intake, IV Titration 1419.736 Amount Heparin Sodium,Porcine/ 644.736 D5w Pmx 25,000 unit In Dextrose/Water 1 500ml. bag @ 18 UNITS/KG/HR 26. 28 mls/hr IV .Q19H2M [facility] Rx#:[id number] Sodium Chloride 0.9% 1, 775 000 ml @ 75 mls/hr IV . [id number] [facility] Rx#:[id number] Oral 180 236 240 Blood Product 0 Rc As-1 Unit 0 [id number] Output: Urine 500 650 Other: Voiding Method Indwelling Catheter Indwelling Catheter Indwelling Catheter - Exam PHYSICAL EXAMINATION: HEENT: Head is atraumatic, normocephalic. Pupils equal, round. Neck is supple. There is no elevated jugular venous pressure. HEART EXAMINATION: Heart S1, S2 irregularly irregular . No murmur or gallop heard. CHEST EXAMINATION: Reveal scattered coarse rhonchi throughout ABDOMEN: Soft, nontender. Bowel sounds are heard. No organomegaly noted. EXTREMITIES: 1+ peripheral pulses with evidence of bilateral leg redness and skin breakdown. . NEUROLOGIC patient is awake, alert and oriented -3. . - Labs CBC & Chem 7: 07/24/17 05:32 07/24/17 05:32 Labs: Abnormal Lab Results - Last 24 Hours (Table) 07/22/17 07/24/17 07/24/17 Range/Units 05:41 05:32 05:32 WBC 13.0 H (3.8-10.6) k/uL RBC 2.14 L (4.30-5.90) m/uL Hgb 6.4 L* (13.0-17.5) gm/dL Hct 20.0 L* (39.0-53.0) % RDW 17.2 H (11.5-15.5) % Neutrophils # 11.2 H (1.3-7.7) k/uL Lymphocytes # 0.7 L (1.0-4.8) k/uL APTT 43.7 H (22.0-30.0) sec Sodium (137-145) mmol/L BUN (9-20) mg/dL Glucose (74-99) mg/dL Calcium (8.4-10.2) mg/dL RBC Folate 932 H (280 - 791) ng/mL Crossmatch 07/24/17 07/24/17 Range/Units 05:32 12:20 WBC (3.8-10.6) k/uL RBC (4.30-5.90) m/uL Hgb (13.0-17.5) gm/dL Hct (39.0-53.0) % RDW (11.5-15.5) % Neutrophils # (1.3-7.7) k/uL Lymphocytes # (1.0-4.8) k/uL APTT (22.0-30.0) sec Sodium 134 L (137-145) mmol/L BUN 25 H (9-20) mg/dL Glucose 112 H (74-99) mg/dL Calcium 7.0 L (8.4-10.2) mg/dL RBC Folate (280 - 791) ng/mL Crossmatch See Detail Microbiology - Last 24 Hours (Table) 07/19/17 10:55 Blood Culture - Preliminary Blood No Growth after 120 hours Assessment and Plan Plan: Assessment and plan #1 bilateral lower extremity cellulitis #2 right lower lobe pneumonia on antibiotics #3 chronic persistent atrial fibrillation currently off of anticoagulation because of drop in hemoglobin #4 anemia #5 hypertension #6 acute renal dysfunction #7 possible upper GI bleed #8 right renal mass being followed by urology Plan Cardiology's perspective, we will recommend to continue the patient on his current medications. We will follow him along with you now on an as-needed basis only, please don't hesitate to call with any questions. DNP note has been reviewed, I agree with a documented findings and plan of care. Patient was seen and examined.
[2017-07-24] MEDS: ACETAMINOPHEN TAB 325 MG TAB PO PRN (17:57)
[2017-07-24] MEDS: HYDROcodone/APAP 5-325MG 1 EACH TAB PO PRN (19:58)
[2017-07-24] MEDS: cefTRIAXone IN SWFI 1,000 MG/10 ML SYRINGE IVP SCH (20:00)
--- NOTE | 2017-07-24 21:26 | P.PN ---
Subjective Progress Note Date: 07/24/17 Principal diagnosis: left leg pain 81-year-old male resents the emergency center with complaints of wound into his left leg. The patient speaks [place], if further information is coming from the chart at this time. As I enter the room the patient needs to urinate. He is given a urinal and probably urinates all over the floor and missed the urinal almost completely. To the patient's limited Maltese he relates that he does have pain in the left leg. Fish Bailer was present today and patient does relate to pain to the left leg. Improved with the silvadene and wrap. Feels better today. but had gastrointestinal bleed. He had received a blood transfusion. Fish Bailer is present today. It is apparent that the patient is feeling somewhat better. He has been seen by the urologist for the renal mass. Computed tomography scan is performed which relates to an enlarging lesion highly consistent with metastatic renal cell carcinoma Objective - Vital Signs Vital signs: Vital Signs Temp 100.4 F H 07/24/17 17:30 Pulse 100 07/24/17 20:29 Resp 18 07/24/17 17:30 BP 119/62 07/24/17 17:30 Pulse Ox 96 07/24/17 17:30 Intake & Output 07/24/17 07/24/17 07/25/17 06:59 18:59 06:59 Intake Total 1655.736 910 Output Total 650 400 Balance 1005.736 510 Weight 72.3 kg Intake: Intake, IV Titration 1419.736 Amount Heparin Sodium,Porcine/ 644.736 D5w Pmx 25,000 unit In Dextrose/Water 1 500ml. bag @ 18 UNITS/KG/HR 26. 28 mls/hr IV .Q19H2M SOL Rx#:[id number] Sodium Chloride 0.9% 1, 775 000 ml @ 75 mls/hr IV . [id number] SOL Rx#:[id number] Oral 236 600 Blood Product 310 Rc As-1 Unit 310 [id number] Output: Urine 650 400 Other: Voiding Method Indwelling Catheter Indwelling Catheter - Exam 81-year-old male who seems to be comfortable. HEENT: Anicteric conjunctiva are pink and moist nasal mucosa grossly intact without significant lesions, there is no thrush. Poor dentition Neck: The neck is supple without significant lymphadenopathy or thyromegaly. Lungs: Good bilateral air entry without significant crackles scattered wheezes are heard. There is no significant bronchial sounds. There is no egophony or dullness. Heart: Irregular with an audible S1 and S2 soft S4. There is no significant murmur click or rub, PMI was nondisplaced. Abdomen: Positive bowel sounds soft and nontender without palpable masses or organomegaly. There was no guarding or rebound. Extremities: The upper extremities have excellent pulses they are symmetric, no significant petechiae or telangiectasia. No splinter hemorrhages were noted. The right lower extremity is intact. There are no open lesions. Left lower extremity reveals evidence of the extensive swelling from the foot to just below the knee. There is distinct discoloration. There appears to be a chronic ulceration to the lateral aspect of the ankle and of the lower leg. There is evidence of blistering and denuded skin around the anterior aspect of the lower leg in the calf area. It is tender. but improving with the Silvadene wrap. There continues to be serous drainage and multiple ABD pads are being utilized. Neuro: Awake alert cooperative, spanish medical interpreter is present making the interaction certainly easier - Labs CBC & Chem 7: 07/24/17 05:32 07/24/17 05:32 Labs: Abnormal Lab Results - Last 24 Hours (Table) 07/22/17 07/24/17 07/24/17 Range/Units 05:41 05:32 05:32 WBC 13.0 H (3.8-10.6) k/uL RBC 2.14 L (4.30-5.90) m/uL Hgb 6.4 L* (13.0-17.5) gm/dL Hct 20.0 L* (39.0-53.0) % RDW 17.2 H (11.5-15.5) % Neutrophils # 11.2 H (1.3-7.7) k/uL Lymphocytes # 0.7 L (1.0-4.8) k/uL APTT 43.7 H (22.0-30.0) sec Sodium (137-145) mmol/L BUN (9-20) mg/dL Glucose (74-99) mg/dL Calcium (8.4-10.2) mg/dL RBC Folate 932 H (280 - 791) ng/mL Crossmatch 07/24/17 07/24/17 Range/Units 05:32 12:20 WBC (3.8-10.6) k/uL RBC (4.30-5.90) m/uL Hgb (13.0-17.5) gm/dL Hct (39.0-53.0) % RDW (11.5-15.5) % Neutrophils # (1.3-7.7) k/uL Lymphocytes # (1.0-4.8) k/uL APTT (22.0-30.0) sec Sodium 134 L (137-145) mmol/L BUN 25 H (9-20) mg/dL Glucose 112 H (74-99) mg/dL Calcium 7.0 L (8.4-10.2) mg/dL RBC Folate (280 - 791) ng/mL Crossmatch See Detail Microbiology - Last 24 Hours (Table) 07/19/17 10:55 Blood Culture - Preliminary Blood No Growth after 120 hours Microbiology 07/19/17 10:55 Blood Blood Culture - Preliminary No Growth after 120 hours 07/19/17 10:55 Leg - Left Gram Stain - Final 07/19/17 10:55 Leg - Left Wound Culture - Final 07/19/17 13:33 Urine,Clean Catch Urine Culture - Final - Imaging and Cardiology CT scan - abdomen: report reviewed (Increase of the mass consistent with renal cell carcinoma now with metastasis) Assessment and Plan (1) Left leg cellulitis Narrative/Plan: 81-year-old male presents to hospital with his family with complaints of increasing difficulty to his left leg. It had blistered and had drainage and had redness. Suddenly concerns to a cellulitis. Local wound care with Silvadene will be initiated with some rolled gauze and Jayme to try to help the site. Wound culture is pending. Antimicrobial therapy has been an issue with vancomycin and ceftriaxone for now. A duplex was requested and there is concerned to deep venous thrombosis although may be old the patient was unable to cooperate well for the exam. Since center. Is now present he may be able to cooperate better for a relook. Clotting is of some concern given the data of the complex right renal mass and concerns to a renal carcinoma that is worsened since September of this year. ER notes are reviewed from the September stay. Which point in time the data was transmitted to his primary care physician who was to have follow-up with the outpatient setting. At this time it is unclear what has occurred. Imaging at that time revealed evidence of abnormalities in his lung which family related poor old and being found the outpatient setting also. Leukocytosis appears related to the process in the left leg. Is also concerned that he has acute renal failure that could be worsening because of the lesion on the kidney and some process. He has hyperkalemia that is being treated. Urinalysis is benign for infection. He has now been seen by urology and further workup was requested for the renal mass. CT reveals evidence of the increased mass highly consistent with renal cell carcinoma with metastasis. Likely etiology of his hypercoagulable state resulting in the left leg thrombosis in the significant disease. 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 The patient has no fever. The bullous lesions of the left leg and responding to current antibiotic and local wound care. He is receiving evaluation for the deep venous thrombosis, but with the gastrointestinal bleed anticoagulation is problematic. Unclear what the discharge plan will be at this time given what appears to be progressive, metastatic renal cell carcinoma. Current Visit: Yes Status: Acute Code(s): L03.116 - CELLULITIS OF LEFT LOWER LIMB SNOMED Code(s): 700264917 (2) Acute renal failure Current Visit: Yes Status: Acute Code(s): N17.9 - ACUTE KIDNEY FAILURE, UNSPECIFIED SNOMED Code(s): 85295365 (3) Right renal mass Current Visit: Yes Status: Acute Code(s): N28.89 - OTHER SPECIFIED DISORDERS OF KIDNEY AND URETER SNOMED Code(s): 543612466
--- NOTE | 2017-07-24 21:58 | P.PN ---
Progress Note - Text Progress Note Date: 07/24/17 The patient is still having temperature spikes, though clinically he does not have major symptoms of sepsis. No history of nausea or vomiting. He does complain of some vague abdominal discomfort, more prominent in the right upper quadrant. no progression of left lower extremity swelling. no history of actual chills, nausea or vomiting. No diarrhea noted. There is some generalized weakness, slightly improved. Review of systems otherwise as above , and negative out of 10 on exam, heart rate was elevated in the 110-120 range. Borderline fever, with Maximum temperature of 100.4 noted. Other vital signs normal. chest/CVS/abdomen/extremity exam is otherwise unchanged from initial evaluation labs/radiology: CT of the abdomen and pelvis noted marked increase in size of the right renal mass. In addition there was evidence of liver lesions highly suspicious for metastasis, as well as extensive mesenteric and retroperitoneal adenopathy. The clinical picture was highly suggestive of metastatic malignancy. labs show improvement in creatinine into the normal range. Hemoglobin is stable in the 7-8 range assessment/plan: #1. Metastatic malignancy- there was suspicion for the same, given the prior finding of renal mass on ultrasound. CT scan shows progression of the mass, as well as other findings highly suggestive of metastatic malignancy. I discussed the same with the blasting helper. However the blasting helper is not related to the patient and was reluctant to give him the information without a family member present. Therefore family meeting was requested. I did subsequently attempted to contact the son by phone but got no Reply. I will follow-up once family is available #2. Anemia workup is negative for evidence hemolysis or deficiency state. With current findings, hypoproliferative anemia, possibly due to malignancy, is suspected
[2017-07-25] MEDS: HYDROcodone/APAP 5-325MG 1 EACH TAB PO PRN ×3 (03:40→19:40)
[2017-07-25] MEDS: SODIUM CHLORIDE 0.9% 1,000 ML IV SCH ×2 (03:40→16:02)
[2017-07-25 05:44] LABS: Methylmalonic Acid 0.4 umol/L (<0.40)
[2017-07-25] MEDS: PANTOPRAZOLE 40 MG TABLET PO SCH ×2 (06:04→16:02)
[2017-07-25 06:38] LABS: Anisocytosis Slight; Basophils % (A) 0 %; CH 29.7; Eosinophils # (A) 0.4 k/uL (0-0.7); Eosinophils % (A) 3 %; HCT 24.1 % (39.0-53.0); HDW 3.18; HGB 7.4 gm/dL (13.0-17.5); Hypochromasia Moderate; Luc # (Auto) 0.22; Luc % (Auto) 2; Lymphocytes # (A) 0.6 k/uL (1.0-4.8); Lymphocytes % (A) 5 %; MCH 29.8 pg (25.0-35.0); MCHC 30.8 g/dL (31.0-37.0); MCV 96.7 fL (80.0-100.0); Macrocytosis Slight; Mean Platelet Volume 7.3; Monocytes # (A) 0.4 k/uL (0-1.0); Monocytes % (A) 3 %; Neutrophils # (A) 11.2 k/uL (1.3-7.7); Neutrophils % (A) 87 %; RBC 2.49 m/uL (4.30-5.90); RDW 17.2 % (11.5-15.5); WBC 12.8 k/uL (3.8-10.6); WBC (Perox) 13.22
[2017-07-25 06:58] LABS: Anion Gap 5 mmol/L; Blood Urea Nitrogen 24 mg/dL (9-20); Calcium 7.2 mg/dL (8.4-10.2); Carbon Dioxide 23 mmol/L (22-30); Chloride 108 mmol/L (98-107); Glucose 116 mg/dL (74-99); Non-African American GFR(MDRD) >60 (>60 ml/min/1.73 sqM); Potassium 4.3 mmol/L (3.5-5.1); Sodium 136 mmol/L (137-145)
[2017-07-25] MEDS: IPRATROPIUM-ALBUTEROL 3 ML NEB INHALATION SCH ×4 (07:58→18:56)
[2017-07-25] MEDS: METOPROLOL TARTRATE 50 MG TAB PO SCH ×3 (08:28→20:52)
[2017-07-25] MEDS: TAMSULOSIN 0.4 MG CAP.ER.24H PO SCH (08:28)
[2017-07-25] MEDS: VANCOMYCIN 1,500 MG in SODIUM CHLORIDE 0.9% 250 ML IVPB SCH (16:02)
--- NOTE | 2017-07-25 20:25 | PN ---
PROGRESS NOTE Patient is seen for followup for acute kidney injury. His renal function has improved significantly. Patient was maintained on IV fluids for CT abdomen and pelvis to better assess the right renal mass. Heme/Onc has been consulted and Urology is on the case as well. The patient overall states that he is feeling better, has tried to increase his oral intake. The CT does show extensive adenopathy and a possible left renal tumor thrombus. There is peripancreatic and periaortic lymph nodes suggesting metastasis. There was also a partially visualized lingular pulmonary nodule noted. EXAMINATION: Blood pressure is 111/60, heart rate 115 per minute. Patient is afebrile. HEART: S1, S2. LUNGS: Decreased breath sounds at the bases. Mild bilateral basal crackles are heard. ABDOMEN: Soft, nontender. Lower extremities show no significant edema. COMMERCIAL ENERGY RATER: Grossly intact. The patient has chronic lower extremity wounds. LABS: Sodium 136, potassium 4.3, hemoglobin was at 7.4 g/dL, serum creatinine 1.15. Magnesium 2.2. ASSESSMENT: 1. Acute kidney injury, acute tubular necrosis, currently improved. 2. Hyperkalemia on initial admission, currently improved. Potassium is actually low now. 3. Metastatic renal cell cancer being followed by Oncology and Urology. 4. Anemia, multifactorial, including secondary to malignancy. PLAN: Hep-Lock IV fluids and encourage increased oral intake. Further discussion needs to be made regarding the malignancy. MMODL / IJN: [id number] /
[2017-07-25] MEDS: cefTRIAXone IN SWFI 1,000 MG/10 ML SYRINGE IVP SCH (20:52)
--- NOTE | 2017-07-25 22:13 | P.PN ---
Subjective Progress Note Date: 07/25/17 Principal diagnosis: left leg pain 81-year-old male resents the emergency center with complaints of wound into his left leg. The patient speaks Yemeni, if further information is coming from the chart at this time. As I enter the room the patient needs to urinate. He is given a urinal and probably urinates all over the floor and missed the urinal almost completely. To the patient's limited Slovenian he relates that he does have pain in the left leg. Key Person was present today and patient does relate to pain to the left leg. Improved with the silvadene and wrap. Feels better today. but had gastrointestinal bleed. He had received a blood transfusion. Key Person is present today. It is apparent that the patient is feeling somewhat better. He has been seen by the urologist for the renal mass. 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 [id number] [facility] Rx#:[id number] Oral 654 840 Output: Urine 625 800 Uretheral (Thomason) 400 Other: Voiding Method Indwelling Catheter Indwelling Catheter # Voids 1 - Exam 81-year-old male who seems to be comfortable. HEENT: Anicteric conjunctiva are pink and moist nasal mucosa grossly intact without significant lesions, there is no thrush. Poor dentition Neck: The neck is supple without significant lymphadenopathy or thyromegaly. Lungs: Good bilateral air entry without significant crackles scattered wheezes are heard. There is no significant bronchial sounds. There is no egophony or dullness. Heart: Irregular with an audible S1 and S2 soft S4. There is no significant murmur click or rub, PMI was nondisplaced. Abdomen: Positive bowel sounds soft and nontender without palpable masses or organomegaly. There was no guarding or rebound. Extremities: The upper extremities have excellent pulses they are symmetric, no significant petechiae or telangiectasia. No splinter hemorrhages were noted. The right lower extremity is intact. There are no open lesions. Left lower extremity reveals evidence of the extensive swelling from the foot to just below the knee. There is distinct discoloration. There appears to be a chronic ulceration to the lateral aspect of the ankle and of the lower leg. There is evidence of blistering and denuded skin around the anterior aspect of the lower leg in the calf area. It is less tender. but improving with the Silvadene wrap. There continues to be serous drainage and multiple ABD pads are being utilized. Neuro: Awake alert cooperative, faculty instructor is present making the interaction certainly easier - Labs CBC & Chem 7: 07/25/17 06:17 07/25/17 06:17 Labs: Abnormal Lab Results - Last 24 Hours (Table) 07/22/17 07/25/17 07/25/17 Range/Units 05:41 06:17 06:17 WBC 12.8 H (3.8-10.6) k/uL RBC 2.49 L (4.30-5.90) m/uL Hgb 7.4 L (13.0-17.5) gm/dL Hct 24.1 L (39.0-53.0) % MCHC 30.8 L (31.0-37.0) g/dL RDW 17.2 H (11.5-15.5) % Neutrophils # 11.2 H (1.3-7.7) k/uL Lymphocytes # 0.6 L (1.0-4.8) k/uL Sodium 136 L (137-145) mmol/L Chloride 108 H (98-107) mmol/L BUN 24 H (9-20) mg/dL Glucose 116 H (74-99) mg/dL Calcium 7.2 L (8.4-10.2) mg/dL Albumin (PEP) 2.59 L (3.80-4.90) g/dL Microbiology - Last 24 Hours (Table) 07/19/17 10:55 Blood Culture - Final Blood No Growth after 144 hours Laboratory Results WBC 12.8 k/uL (3.8-10.6) H 07/25/17 06:17 RBC 2.49 m/uL (4.30-5.90) L 07/25/17 06:17 Hgb 7.4 gm/dL (13.0-17.5) L 07/25/17 06:17 Hct 24.1 % (39.0-53.0) L 07/25/17 06:17 MCV 96.7 fL (80.0-100.0) 07/25/17 06:17 MCH 29.8 pg (25.0-35.0) 07/25/17 06:17 MCHC 30.8 g/dL (31.0-37.0) L 07/25/17 06:17 RDW 17.2 % (11.5-15.5) H 07/25/17 06:17 Plt Count 191 k/uL (150-450) 07/25/17 06:17 Neutrophils % 87 % 07/25/17 06:17 Neutrophils % (Manual) 72 % 07/20/17 03:54 Band Neutrophils % 3 % 07/20/17 03:54 Lymphocytes % 5 % 07/25/17 06:17 Lymphocytes % (Manual) 12 % 07/20/17 03:54 Monocytes % 3 % 07/25/17 06:17 Monocytes % (Manual) 7 % 07/20/17 03:54 Eosinophils % 3 % 07/25/17 06:17 Eosinophils % (Manual) 3 % 07/20/17 03:54 Basophils % 0 % 07/25/17 06:17 Metamyelocytes % 3 % 07/20/17 03:54 Neutrophils # 11.2 k/uL (1.3-7.7) H 07/25/17 06:17 Neutrophils # (Manual) 10.20 k/uL (1.3-7.7) H 07/20/17 03:54 Lymphocytes # 0.6 k/uL (1.0-4.8) L 07/25/17 06:17 Lymphocytes # (Manual) 1.64 k/uL (1.0-4.8) 07/20/17 03:54 Monocytes # 0.4 k/uL (0-1.0) 07/25/17 06:17 Monocytes # (Manual) 0.96 k/uL (0-1.0) 07/20/17 03:54 Eosinophils # 0.4 k/uL (0-0.7) 07/25/17 06:17 Eosinophils # (Manual) 0.41 k/uL (0-0.7) 07/20/17 03:54 Basophils # 0.0 k/uL (0-0.2) 07/25/17 06:17 Metamyelocytes # (Man) 0.41 k/uL (0) H 07/20/17 03:54 Nucleated RBCs 0 /100 WBC (0-0) 07/20/17 03:54 Manual Slide Review Performed 07/20/17 03:54 Polychromasia Present 07/20/17 03:54 Hypochromasia Moderate 07/25/17 06:17 Poikilocytosis Slight 07/23/17 06:28 Anisocytosis Slight 07/25/17 06:17 Macrocytosis Slight 07/25/17 06:17 ESR 62 mm/hr (0-15) H 07/22/17 05:41 Retic Count 1.6 % (0.5-2.0) 07/22/17 05:41 Haptoglobin 145.0 mg/dL (31.2-198.0) 07/22/17 05:41 PT 12.8 sec (9.0-12.0) H 07/21/17 18:15 INR 1.3 (<1.2) H 07/21/17 18:15 APTT 25.6 sec (22.0-30.0) 07/24/17 12:20 Sodium 136 mmol/L (137-145) L 07/25/17 06:17 Potassium 4.3 mmol/L (3.5-5.1) 07/25/17 06:17 Chloride 108 mmol/L (98-107) H 07/25/17 06:17 Carbon Dioxide 23 mmol/L (22-30) 07/25/17 06:17 Anion Gap 5 mmol/L 07/25/17 06:17 BUN 24 mg/dL (9-20) H 07/25/17 06:17 Creatinine 1.15 mg/dL (0.66-1.25) 07/25/17 06:17 Est GFR (MDRD) Af Amer >60 (>60 ml/min/1.73 sqM) 07/25/17 06:17 Est GFR (MDRD) Non-Af >60 (>60 ml/min/1.73 sqM) 07/25/17 06:17 Glucose 116 mg/dL (74-99) H 07/25/17 06:17 POC Glucose (mg/dL) 101 mg/dL (75-99) H 07/19/17 23:43 POC Glu Retort Condenser Attendant ID Sandee Johnson 07/19/17 23:43 Calcium 7.2 mg/dL (8.4-10.2) L 07/25/17 06:17 Magnesium 2.2 mg/dL (1.6-2.3) 07/24/17 05:32 Iron 27 ug/dL (65-175) L 07/21/17 17:36 TIBC 246 ug/dL (228-460) 07/21/17 17:36 Iron Saturation 10.98 (15.00-50.00) L 07/21/17 17:36 Ferritin 231.4 ng/mL (22.0-322.0) 07/21/17 05:51 Total Bilirubin 0.8 mg/dL (0.2-1.3) 07/21/17 05:51 AST 35 U/L (17-59) 07/21/17 05:51 ALT 43 U/L (21-72) 07/21/17 05:51 Alkaline Phosphatase 90 U/L (38-126) 07/21/17 05:51 NT-Pro-B Natriuret Pep 5130 pg/mL 07/19/17 10:55 Total Protein 5.5 g/dL (6.3-8.2) L 07/21/17 05:51 Total Protein (PEP) 5.1 g/dL (6.2-8.2) L 07/22/17 05:41 Albumin 2.8 g/dL (3.5-5.0) L 07/21/17 05:51 Albumin (PEP) 2.59 g/dL (3.80-4.90) L 07/22/17 05:41 Njtsv-4-Vepucoyyu 0.29 g/dL (0.10-0.40) 07/22/17 05:41 Ikvvh-5-Lklfeiqdw 0.70 g/dL (0.60-1.00) 07/22/17 05:41 Beta Globulins 0.74 g/dL (0.60-1.30) 07/22/17 05:41 Gamma Globulins 0.78 g/dL (0.70-1.50) 07/22/17 05:41 PEP Interpretation SEE NOTE 07/22/17 05:41 Vitamin B12 1232.0 pg/mL (200.0-944.0) H 07/19/17 18:01 Methylmalonic Acid 0.40 umol/L (<0.40) 07/22/17 05:41 RBC Folate 932 ng/mL (280 - 791) H 07/22/17 05:41 Urine Color Light Yellow 07/19/17 13:33 Urine Appearance Clear (Clear) 07/19/17 13:33 Urine pH 5.0 (5.0-8.0) 07/19/17 13:33 Ur Specific [place] 1.011 (1.001-1.035) 07/19/17 13:33 Urine Protein Negative (Negative) 07/19/17 13:33 Urine Glucose (UA) Negative (Negative) 07/19/17 13:33 Urine Ketones Negative (Negative) 07/19/17 13:33 Urine Blood Moderate (Negative) H 07/19/17 13:33 Urine Nitrite Negative (Negative) 07/19/17 13:33 Urine Bilirubin Negative (Negative) 07/19/17 13:33 Urine Urobilinogen <2.0 mg/dL (<2.0) 07/19/17 13:33 Ur Leukocyte Esterase Negative (Negative) 07/19/17 13:33 Urine RBC 50 /hpf (0-5) H 07/19/17 13:33 Urine WBC 2 /hpf (0-5) 07/19/17 13:33 Ur Squamous Epith Cells <1 /hpf (0-4) 07/19/17 13:33 Urine Mucus Rare /hpf (None) H 07/19/17 13:33 Ur Random Creatinine 36.9 mg/dL 07/19/17 14:37 Ur Random Sodium 71 mmol/L (30-90) 07/19/17 14:37 Stool Occult Blood Positive (Negative) 07/22/17 14:15 Vancomycin Trough 15.6 ug/mL 07/24/17 05:32 Serum AZAM Interpret SEE NOTE 07/22/17 05:41 Free Tulsita LC, Quant 4.90 mg/dL (0.33-1.94) H 07/22/17 05:41 Blood Type B Positive 07/24/17 12:20 Blood Type Confirm B Positive 07/19/17 10:55 Blood Type Recheck No 07/24/17 12:20 Antibody Screen NEGATIVE 07/24/17 12:20 Crossmatch See Detail 07/24/17 12:20 Spec Expiration Date 07/27/2017231907/24/17 12:20 Microbiology 07/19/17 10:55 Blood Blood Culture - Final No Growth after 144 hours 07/19/17 10:55 Leg - Left Gram Stain - Final 07/19/17 10:55 Leg - Left Wound Culture - Final 07/19/17 13:33 Urine,Clean Catch Urine Culture - Final - Imaging and Cardiology CT scan - abdomen: report reviewed Assessment and Plan (1) Left leg cellulitis Narrative/Plan: 81-year-old male presents to hospital with his family with complaints of increasing difficulty to his left leg. It had blistered and had drainage and had redness. Suddenly concerns to a cellulitis. Local wound care with Silvadene will be initiated with some rolled gauze and Jayme to try to help the site. Wound culture is pending. Antimicrobial therapy has been an issue with vancomycin and ceftriaxone for now. A duplex was requested and there is concerned to deep venous thrombosis although may be old the patient was unable to cooperate well for the exam. Since center. Is now present he may be able to cooperate better for a relook. Clotting is of some concern given the data of the complex right renal mass and concerns to a renal carcinoma that is worsened since September of this year. ER notes are reviewed from the September stay. Which point in time the data was transmitted to his primary care physician who was to have follow-up with the outpatient setting. At this time it is unclear what has occurred. Imaging at that time revealed evidence of abnormalities in his lung which family related poor old and being found the outpatient setting also. Leukocytosis appears related to the process in the left leg. Is also concerned that he has acute renal failure that could be worsening because of the lesion on the kidney and some process. He has hyperkalemia that is being treated. Urinalysis is benign for infection. He has now been seen by urology and further workup was requested for the renal mass. CT reveals evidence of the increased mass highly consistent with renal cell carcinoma with metastasis. Likely etiology of his hypercoagulable state resulting in the left leg thrombosis in the significant disease. 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 The patient has no fever. The bullous lesions of the left leg and responding to current antibiotic and local wound care. He is receiving evaluation for the deep venous thrombosis, but with the gastrointestinal bleed anticoagulation is problematic. Patient apparently with family met with Dr. Spears today. It is quite unclear with overall plan will be at this time. When ready for discharge to home given the negative culture will be able to utilize cephalexin 500 mg every 8 hours for 7 days. Unclear what the discharge plan will be at this time given what appears to be progressive, metastatic renal cell carcinoma. Current Visit: Yes Status: Acute Code(s): L03.116 - CELLULITIS OF LEFT LOWER LIMB SNOMED Code(s): 907308955 (2) Acute renal failure Current Visit: Yes Status: Acute Code(s): N17.9 - ACUTE KIDNEY FAILURE, UNSPECIFIED SNOMED Code(s): 97422584 (3) Right renal mass Current Visit: Yes Status: Acute Code(s): N28.89 - OTHER SPECIFIED DISORDERS OF KIDNEY AND URETER SNOMED Code(s): 939072779
[2017-07-26 06:14] LABS: Basophils % (A) 0 %; CH 29.8; Eosinophils # (A) 0.6 k/uL (0-0.7); Eosinophils % (A) 6 %; HDW 3.25; HGB 7.1 gm/dL (13.0-17.5); Hypochromasia Moderate; Luc % (Auto) 2; Lymphocytes # (A) 0.6 k/uL (1.0-4.8); Lymphocytes % (A) 6 %; MCV 96.9 fL (80.0-100.0); Mean Platelet Volume 6.8; Monocytes # (A) 0.4 k/uL (0-1.0); Monocytes % (A) 4 %; Neutrophils # (A) 8.3 k/uL (1.3-7.7); Neutrophils % (A) 82 %; RBC 2.38 m/uL (4.30-5.90); RDW 15.5 % (11.5-15.5); WBC (Perox) 10.14
[2017-07-26] MEDS: PANTOPRAZOLE 40 MG TABLET PO SCH ×2 (06:24→16:04)
[2017-07-26] MEDS: HYDROcodone/APAP 5-325MG 1 EACH TAB PO PRN ×4 (06:33→23:41)
[2017-07-26] MEDS: IPRATROPIUM-ALBUTEROL 3 ML NEB INHALATION SCH ×4 (08:09→20:49)
[2017-07-26] MEDS: METOPROLOL TARTRATE 50 MG TAB PO SCH ×3 (08:38→20:29)
[2017-07-26] MEDS: TAMSULOSIN 0.4 MG CAP.ER.24H PO SCH (08:38)
[2017-07-26] MEDS: VANCOMYCIN 1,500 MG in SODIUM CHLORIDE 0.9% 250 ML IVPB SCH ×2 (08:40→23:42)
--- NOTE | 2017-07-26 15:16 | PN ---
PROGRESS NOTE Patient is seen for followup for acute kidney injury. His renal function has improved. Acute kidney injury has resolved. Patient was also hyperkalemic, which is now resolved. He has a right kidney mass with significant metastasis noted on the CT scan and this will be further tended to as outpatient. PHYSICAL EXAMINATION: Blood pressure is 102/58, heart rate 101 per minute. Patient is afebrile. Examination of the heart S1, S2. Examination of the lungs, decreased breath sounds at the bases. A few basal crackles are heard bilaterally. Abdomen is soft, nontender. Examination of the lower extremities shows chronic skin changes, bilaterally. Left leg is currently wrapped. LABS: Sodium 136, potassium 4.2, chloride 108, serum creatinine 1.15 from yesterday. ASSESSMENT: 1. Acute kidney injury, acute tubular necrosis, currently resolved. 2. Severe hyperkalemia associated with acute kidney injury, now improved. 3. Intravascular volume depletion, status post IV fluids, currently improved. 4. Urine retention. Patient remains with indwelling Thomason catheter. 5. Anemia, most likely related to underlying malignancy. Stool for occult blood was also positive. 6. Metastatic right renal cell cancer, being followed by Oncology. 7. Left lower extremity wounds, maintained on antibiotics. PLAN: 1. Continue off of IV fluids and Lasix. Blood pressure is on the lower side. We may need to decrease the dose of metoprolol; however, his heart rate remains high, therefore since his renal function is fairly stable, I will not decrease the dose of Lopressor. 2. Chronic A. fib with heart rate staying slightly on the high side, currently maintained on metoprolol and off of anticoagulation secondary to severe anemia and positive stool for occult blood. MMODL / IJN: [id number] /
[2017-07-26] MEDS: cefTRIAXone IN SWFI 1,000 MG/10 ML SYRINGE IVP SCH (20:28)
[2017-07-26] MEDS: ACETAMINOPHEN TAB 325 MG TAB PO PRN (20:50)
--- NOTE | 2017-07-26 21:41 | P.PN ---
Subjective Progress Note Date: 07/26/17 Principal diagnosis: left leg pain 81-year-old male resents the emergency center with complaints of wound into his left leg. The patient speaks Indian, if further information is coming from the chart at this time. As I enter the room the patient needs to urinate. He is given a urinal and probably urinates all over the floor and missed the urinal almost completely. To the patient's limited Armenian he relates that he does have pain in the left leg. Mental Health Program Manager was present today and patient does relate to pain to the left leg. Improved with the silvadene and wrap. Feels better today. but had gastrointestinal bleed. He had received a blood transfusion. Mental Health Program Manager is present today. It is apparent that the patient is feeling somewhat better. He has been seen by the urologist for the renal mass. Computed tomography scan is performed which relates to an enlarging lesion highly consistent with metastatic renal cell carcinoma. The acute renal failure has improved. Overall the patient is improving. Still has the swelling and discomfort in the left leg. Deep venous thrombosis was noted in that limb. Objective - Vital Signs Vital signs: Vital Signs Temp 97.7 F 07/26/17 16:00 Pulse 125 H 07/26/17 21:00 Resp 16 07/26/17 16:00 BP 109/59 07/26/17 16:00 Pulse Ox 97 07/26/17 16:00 Intake & Output 07/26/17 07/26/17 07/27/17 06:59 18:59 06:59 Intake Total 311 240 Output Total 400 700 Balance -89 -460 Weight 80.9 kg 80.9 kg Intake: Intake, IV Titration 75 Amount Sodium Chloride 0.9% 1, 75 000 ml @ 75 mls/hr IV . [id number] [facility] Rx#:[id number] Oral 236 240 Output: Urine 400 700 Uretheral (Thomason) 200 Other: Voiding Method Indwelling Catheter Indwelling Catheter # Voids 0 # Bowel Movements 0 - Exam 81-year-old male who seems to be comfortable. HEENT: Anicteric conjunctiva are pink and moist nasal mucosa grossly intact without significant lesions, there is no thrush. Poor dentition Neck: The neck is supple without significant lymphadenopathy or thyromegaly. Lungs: Good bilateral air entry without significant crackles scattered wheezes are heard. There is no significant bronchial sounds. There is no egophony or dullness. Heart: Irregular with an audible S1 and S2 soft S4. There is no significant murmur click or rub, PMI was nondisplaced. Abdomen: Positive bowel sounds soft and nontender without palpable masses or organomegaly. There was no guarding or rebound. Extremities: The upper extremities have excellent pulses they are symmetric, no significant petechiae or telangiectasia. No splinter hemorrhages were noted. The right lower extremity is intact. There are no open lesions. Left lower extremity reveals evidence of the extensive swelling from the foot to just below the knee. There is distinct discoloration. There appears to be a chronic ulceration to the lateral aspect of the ankle and of the lower leg. There is evidence of blistering and denuded skin around the anterior aspect of the lower leg in the calf area. It is less tender. but improving with the Silvadene wrap. There continues to be serous drainage and multiple ABD pads are being utilized. Neuro: Awake alert cooperative, - Labs CBC & Chem 7: 07/26/17 05:50 07/25/17 06:17 Labs: Abnormal Lab Results - Last 24 Hours (Table) 07/26/17 Range/Units 05:50 RBC 2.38 L (4.30-5.90) m/uL Hgb 7.1 L (13.0-17.5) gm/dL Hct 23.0 L (39.0-53.0) % Neutrophils # 8.3 H (1.3-7.7) k/uL Lymphocytes # 0.6 L (1.0-4.8) k/uL Laboratory Results WBC 10.0 k/uL (3.8-10.6) 07/26/17 05:50 RBC 2.38 m/uL (4.30-5.90) L 07/26/17 05:50 Hgb 7.1 gm/dL (13.0-17.5) L 07/26/17 05:50 Hct 23.0 % (39.0-53.0) L 07/26/17 05:50 MCV 96.9 fL (80.0-100.0) 07/26/17 05:50 MCH 30.0 pg (25.0-35.0) 07/26/17 05:50 MCHC 31.0 g/dL (31.0-37.0) 07/26/17 05:50 RDW 15.5 % (11.5-15.5) 07/26/17 05:50 Plt Count 244 k/uL (150-450) 07/26/17 05:50 Neutrophils % 82 % 07/26/17 05:50 Neutrophils % (Manual) 72 % 07/20/17 03:54 Band Neutrophils % 3 % 07/20/17 03:54 Lymphocytes % 6 % 07/26/17 05:50 Lymphocytes % (Manual) 12 % 07/20/17 03:54 Monocytes % 4 % 07/26/17 05:50 Monocytes % (Manual) 7 % 07/20/17 03:54 Eosinophils % 6 % 07/26/17 05:50 Eosinophils % (Manual) 3 % 07/20/17 03:54 Basophils % 0 % 07/26/17 05:50 Metamyelocytes % 3 % 07/20/17 03:54 Neutrophils # 8.3 k/uL (1.3-7.7) H 07/26/17 05:50 Neutrophils # (Manual) 10.20 k/uL (1.3-7.7) H 07/20/17 03:54 Lymphocytes # 0.6 k/uL (1.0-4.8) L 07/26/17 05:50 Lymphocytes # (Manual) 1.64 k/uL (1.0-4.8) 07/20/17 03:54 Monocytes # 0.4 k/uL (0-1.0) 07/26/17 05:50 Monocytes # (Manual) 0.96 k/uL (0-1.0) 07/20/17 03:54 Eosinophils # 0.6 k/uL (0-0.7) 07/26/17 05:50 Eosinophils # (Manual) 0.41 k/uL (0-0.7) 07/20/17 03:54 Basophils # 0.0 k/uL (0-0.2) 07/26/17 05:50 Metamyelocytes # (Man) 0.41 k/uL (0) H 07/20/17 03:54 Nucleated RBCs 0 /100 WBC (0-0) 07/20/17 03:54 Manual Slide Review Performed 07/20/17 03:54 Polychromasia Present 07/20/17 03:54 Hypochromasia Moderate 07/26/17 05:50 Poikilocytosis Slight 07/23/17 06:28 Anisocytosis Slight 07/25/17 06:17 Macrocytosis Slight 07/25/17 06:17 ESR 62 mm/hr (0-15) H 07/22/17 05:41 Retic Count 1.6 % (0.5-2.0) 07/22/17 05:41 Haptoglobin 145.0 mg/dL (31.2-198.0) 07/22/17 05:41 PT 12.8 sec (9.0-12.0) H 07/21/17 18:15 INR 1.3 (<1.2) H 07/21/17 18:15 APTT 25.6 sec (22.0-30.0) 07/24/17 12:20 Sodium 136 mmol/L (137-145) L 07/25/17 06:17 Potassium 4.3 mmol/L (3.5-5.1) 07/25/17 06:17 Chloride 108 mmol/L (98-107) H 07/25/17 06:17 Carbon Dioxide 23 mmol/L (22-30) 07/25/17 06:17 Anion Gap 5 mmol/L 07/25/17 06:17 BUN 24 mg/dL (9-20) H 07/25/17 06:17 Creatinine 1.15 mg/dL (0.66-1.25) 07/25/17 06:17 Est GFR (MDRD) Af Amer >60 (>60 ml/min/1.73 sqM) 07/25/17 06:17 Est GFR (MDRD) Non-Af >60 (>60 ml/min/1.73 sqM) 07/25/17 06:17 Glucose 116 mg/dL (74-99) H 07/25/17 06:17 POC Glucose (mg/dL) 101 mg/dL (75-99) H 07/19/17 23:43 POC Glu Car Sweeper ID Sandee Johnson 07/19/17 23:43 Calcium 7.2 mg/dL (8.4-10.2) L 07/25/17 06:17 Magnesium 2.2 mg/dL (1.6-2.3) 07/24/17 05:32 Iron 27 ug/dL (65-175) L 07/21/17 17:36 TIBC 246 ug/dL (228-460) 07/21/17 17:36 Iron Saturation 10.98 (15.00-50.00) L 07/21/17 17:36 Ferritin 231.4 ng/mL (22.0-322.0) 07/21/17 05:51 Total Bilirubin 0.8 mg/dL (0.2-1.3) 07/21/17 05:51 AST 35 U/L (17-59) 07/21/17 05:51 ALT 43 U/L (21-72) 07/21/17 05:51 Alkaline Phosphatase 90 U/L (38-126) 07/21/17 05:51 NT-Pro-B Natriuret Pep 5130 pg/mL 07/19/17 10:55 Total Protein 5.5 g/dL (6.3-8.2) L 07/21/17 05:51 Total Protein (PEP) 5.1 g/dL (6.2-8.2) L 07/22/17 05:41 Albumin 2.8 g/dL (3.5-5.0) L 07/21/17 05:51 Albumin (PEP) 2.59 g/dL (3.80-4.90) L 07/22/17 05:41 Hyvrp-2-Muzkscyyf 0.29 g/dL (0.10-0.40) 07/22/17 05:41 Eeyci-7-Zgivxvdlk 0.70 g/dL (0.60-1.00) 07/22/17 05:41 Beta Globulins 0.74 g/dL (0.60-1.30) 07/22/17 05:41 Gamma Globulins 0.78 g/dL (0.70-1.50) 07/22/17 05:41 PEP Interpretation SEE NOTE 07/22/17 05:41 Vitamin B12 1232.0 pg/mL (200.0-944.0) H 07/19/17 18:01 Methylmalonic Acid 0.40 umol/L (<0.40) 07/22/17 05:41 RBC Folate 932 ng/mL (280 - 791) H 07/22/17 05:41 Urine Color Light Yellow 07/19/17 13:33 Urine Appearance Clear (Clear) 07/19/17 13:33 Urine pH 5.0 (5.0-8.0) 07/19/17 13:33 Ur Specific [place] 1.011 (1.001-1.035) 07/19/17 13:33 Urine Protein Negative (Negative) 07/19/17 13:33 Urine Glucose (UA) Negative (Negative) 07/19/17 13:33 Urine Ketones Negative (Negative) 07/19/17 13:33 Urine Blood Moderate (Negative) H 07/19/17 13:33 Urine Nitrite Negative (Negative) 07/19/17 13:33 Urine Bilirubin Negative (Negative) 07/19/17 13:33 Urine Urobilinogen <2.0 mg/dL (<2.0) 07/19/17 13:33 Ur Leukocyte Esterase Negative (Negative) 07/19/17 13:33 Urine RBC 50 /hpf (0-5) H 07/19/17 13:33 Urine WBC 2 /hpf (0-5) 07/19/17 13:33 Ur Squamous Epith Cells <1 /hpf (0-4) 07/19/17 13:33 Urine Mucus Rare /hpf (None) H 07/19/17 13:33 Ur Random Creatinine 36.9 mg/dL 07/19/17 14:37 Ur Random Sodium 71 mmol/L (30-90) 07/19/17 14:37 Stool Occult Blood Positive (Negative) 07/22/17 14:15 Vancomycin Trough 15.6 ug/mL 07/24/17 05:32 Serum AZAM Interpret SEE NOTE 07/22/17 05:41 Free [place] LC, Quant 4.90 mg/dL (0.33-1.94) H 07/22/17 05:41 Blood Type B Positive 07/24/17 12:20 Blood Type Confirm B Positive 07/19/17 10:55 Blood Type Recheck No 07/24/17 12:20 Antibody Screen NEGATIVE 07/24/17 12:20 Crossmatch See Detail 07/24/17 12:20 Spec Expiration Date 07/27/2017231907/24/17 12:20 Microbiology 07/19/17 10:55 Blood Blood Culture - Final No Growth after 144 hours 07/19/17 10:55 Leg - Left Gram Stain - Final 07/19/17 10:55 Leg - Left Wound Culture - Final 07/19/17 13:33 Urine,Clean Catch Urine Culture - Final Assessment and Plan (1) Left leg cellulitis Narrative/Plan: 81-year-old male presents to hospital with his family with complaints of increasing difficulty to his left leg. It had blistered and had drainage and had redness. Suddenly concerns to a cellulitis. Local wound care with Silvadene will be initiated with some rolled gauze and Jayme to try to help the site. Wound culture is pending. Antimicrobial therapy has been an issue with vancomycin and ceftriaxone for now. A duplex was requested and there is concerned to deep venous thrombosis although may be old the patient was unable to cooperate well for the exam. Since center. Is now present he may be able to cooperate better for a relook. Clotting is of some concern given the data of the complex right renal mass and concerns to a renal carcinoma that is worsened since September of this year. ER notes are reviewed from the September stay. Which point in time the data was transmitted to his primary care physician who was to have follow-up with the outpatient setting. At this time it is unclear what has occurred. Imaging at that time revealed evidence of abnormalities in his lung which family related poor old and being found the outpatient setting also. Leukocytosis appears related to the process in the left leg. Is also concerned that he has acute renal failure that could be worsening because of the lesion on the kidney and some process. He has hyperkalemia that is being treated. Urinalysis is benign for infection. He has now been seen by urology and further workup was requested for the renal mass. CT reveals evidence of the increased mass highly consistent with renal cell carcinoma with metastasis. Likely etiology of his hypercoagulable state resulting in the left leg thrombosis in the significant disease. 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 The patient has no fever. The bullous lesions of the left leg have resolved responding to current antibiotic and local wound care. Residual ulceration is present. He is receiving evaluation for the deep venous thrombosis, but with the gastrointestinal bleed anticoagulation is problematic. It is quite unclear with overall plan will be at this time. When ready for discharge to home given the negative culture will be able to utilize cephalexin 500 mg every 8 hours for 7 days. Likely would have homecare for the dressing changes to the left leg if discharged home but maybe going to [facility]. Unclear what the discharge plan will be at this time given what appears to be progressive, metastatic renal cell carcinoma. Current Visit: Yes Status: Acute Code(s): L03.116 - CELLULITIS OF LEFT LOWER LIMB SNOMED Code(s): 360114453 (2) Acute renal failure Current Visit: Yes Status: Acute Code(s): N17.9 - ACUTE KIDNEY FAILURE, UNSPECIFIED SNOMED Code(s): 21850202 (3) Right renal mass Current Visit: Yes Status: Acute Code(s): N28.89 - OTHER SPECIFIED DISORDERS OF KIDNEY AND URETER SNOMED Code(s): 374228893
--- NOTE | 2017-07-26 23:03 | P.PN ---
Subjective Progress Note Date: 07/25/17 Principal diagnosis: Left lower extremity cellulitis patient has multiple medical issues going on at this point of time and patient was a valid by multiple medical physicians. Patient was initially admitted verified lower limb cellulitis left lower limb , patient later had Doppler of the left lower extremity which showed a DVT, patient was already on 0 alto which is being held because of her dark stools. Patient was started on Protonix gastric body was consulted infectious disease and nephrology evaluated the patient. Patient is also found to haveright renal mass on the ultrasound of the abdomen and bladder, walk worse compared to last hospitalization her last ultrasound,oncology was consulted. Patient's anti-correlation is on hold. Patient's IV fluids were discontinued as patient had issues with shortness of breath and crackles on lung exam did obtain a chest x-ray probably will need an echocardiogram as well.I was able to come in again with the patient weight via meter reader chief 07/21/2017 patient is feeling much better today GI bleed improved his hemoglobin remains at 6 will transfuse 1 more unit of blood oncology attempt valid the patient.Can use to have leukocytosis 07/22/2017 Patient is feeling much better today even combative yesterday but the patient is bit tachycardic patient is in atrial fibrillation is already on anticoagulation patient the metoprolol dose will be increased and cardiology was consulted patient had normal ejection fraction. 07/23/2017 hemoglobin is stable no overnight events patient heart rate is getting better. 07/24/2017 Patient started having dark stools again IV heparin was discontinued gastroenterology and hematology and following the patient patient had a CT of the abdomen which she showed the mass which may need a biopsy, decision regarding biopsy as per oncology 2016 Constitutional: Denied any fatigue denied any fever. Cardio vascular: denied any chest pain, palpitations Gastrointestinal denied any nausea vomiting Pulmonary: Denied any shortness of breath cough Neurologic denied any new focal deficits Objective - Vital Signs Vital signs: Vital Signs Temp 99.4 F 07/25/17 15:55 Pulse 95 07/25/17 19:06 Resp 16 07/25/17 19:06 BP 111/60 07/25/17 15:55 Pulse Ox 95 07/25/17 18:57 Intake & Output 07/25/17 07/25/17 07/26/17 06:59 18:59 06:59 Intake Total 1254 840 Output Total 625 800 Balance 629 40 Weight 80.9 kg Intake: Intake, IV Titration 600 Amount Sodium Chloride 0.9% 1, 600 000 ml @ 75 mls/hr IV . [id number] [facility] Rx#:[id number] Oral 654 840 Output: Urine 625 800 Uretheral (Thomason) 400 Other: Voiding Method Indwelling Catheter Indwelling Catheter # Voids 1 - Exam GENERAL: The patient is alert and oriented x3, not in any acute distress. Well developed, well nourished. HEENT: Pupils are round and equally reacting to light. EOMI. No scleral icterus. No conjunctival pallor. Normocephalic, atraumatic. No pharyngeal erythema. No thyromegaly. CARDIOVASCULAR: S1 and S2 present. No murmurs, rubs, or gallops. PULMONARY: Rhonchus breath sounds significant expiratory wheezing was appreciated ABDOMEN: Soft, nontender, nondistended, normoactive bowel sounds. No palpable organomegaly. MUSCULOSKELETAL: No joint swelling or deformity. EXTREMITIES: No cyanosis, clubbing, or pedal edema. NEUROLOGICAL: Gross neurological examination did not reveal any focal deficits. SKIN: The lateral side of the left leg with skin breakdowns and previous bullous lesions significant redness, swelling extending almost up to the knee. redness since allied this improved significantly - Labs CBC & Chem 7: 07/26/17 05:50 07/25/17 06:17 Labs: Abnormal Lab Results - Last 24 Hours (Table) 07/22/17 07/25/17 07/25/17 Range/Units 05:41 06:17 06:17 WBC 12.8 H (3.8-10.6) k/uL RBC 2.49 L (4.30-5.90) m/uL Hgb 7.4 L (13.0-17.5) gm/dL Hct 24.1 L (39.0-53.0) % MCHC 30.8 L (31.0-37.0) g/dL RDW 17.2 H (11.5-15.5) % Neutrophils # 11.2 H (1.3-7.7) k/uL Lymphocytes # 0.6 L (1.0-4.8) k/uL Sodium 136 L (137-145) mmol/L Chloride 108 H (98-107) mmol/L BUN 24 H (9-20) mg/dL Glucose 116 H (74-99) mg/dL Calcium 7.2 L (8.4-10.2) mg/dL Albumin (PEP) 2.59 L (3.80-4.90) g/dL Microbiology - Last 24 Hours (Table) 07/19/17 10:55 Blood Culture - Final Blood No Growth after 144 hours Assessment and Plan Assessment: #1 left lower ruptured bullae with cellulitis. Possible sepsis from that and the patient will be is on IV vancomycin. #2 right lower lobe pneumonia for which patient is on Rocephin there is a possibility that patient has pneumonia. #3 COPD with acute exacerbation #4 anemia, chronic and macrocytic, patient does have acute GI bleed. Chest post 1 unit PRBC transfusion #5 hypertension: Patient is presently hypotensive due to intravascular depletion or sepsis. #6 hyperkalemia: improved now #7 acute renal dysfunction most probably prerenal Azotemia , improved now #8 possible upper GI bleed no dark stools today continue with Protonix gastroneurology evaluated the patient. #9 DVT of the left femoral vein: Patient's anticoagulation is on hold because of recurrent GI bleed #10 atrial fibrillation presently on rate controlled continuous 50 twice a day of metoprolol #11 renal mass, right sided will need a biopsy complex renal mass Time with Patient: Greater than 30
--- NOTE | 2017-07-26 23:12 | P.PN ---
Subjective Progress Note Date: 07/26/17 Principal diagnosis: Left lower extremity cellulitis patient has multiple medical issues going on at this point of time and patient was a valid by multiple medical physicians. Patient was initially admitted verified lower limb cellulitis left lower limb , patient later had Doppler of the left lower extremity which showed a DVT, patient was already on 0 alto which is being held because of her dark stools. Patient was started on Protonix gastric body was consulted infectious disease and nephrology evaluated the patient. Patient is also found to haveright renal mass on the ultrasound of the abdomen and bladder, walk worse compared to last hospitalization her last ultrasound,oncology was consulted. Patient's anti-correlation is on hold. Patient's IV fluids were discontinued as patient had issues with shortness of breath and crackles on lung exam did obtain a chest x-ray probably will need an echocardiogram as well.I was able to come in again with the patient weight via artist scientific 07/21/2017 patient is feeling much better today GI bleed improved his hemoglobin remains at 6 will transfuse 1 more unit of blood oncology attempt valid the patient.Can use to have leukocytosis 07/22/2017 Patient is feeling much better today even combative yesterday but the patient is bit tachycardic patient is in atrial fibrillation is already on anticoagulation patient the metoprolol dose will be increased and cardiology was consulted patient had normal ejection fraction. 07/23/2017 hemoglobin is stable no overnight events patient heart rate is getting better. 07/24/2017 Patient started having dark stools again IV heparin was discontinued gastroenterology and hematology and following the patient patient had a CT of the abdomen which she showed the mass which may need a biopsy, decision regarding biopsy as per oncology 2016 Patient is awake and oriented. Left lower activity cellulitis improving. CT abdomen showed a right renal mass possible metastatic lesions to liver. Oncology is following. 07/26/2017 Patient denied any complaints of chest pain or short of breath. No fever overnight. Left legs). cellulitis is improving. ID and oncology is following . Renal function improved. Constitutional: Denied any fatigue denied any fever. Cardio vascular: denied any chest pain, palpitations Gastrointestinal denied any nausea vomiting Pulmonary: Denied any shortness of breath cough Neurologic denied any new focal deficits Objective - Vital Signs Vital signs: Vital Signs Temp 97.7 F 07/26/17 16:00 Pulse 125 H 07/26/17 21:00 Resp 16 07/26/17 16:00 BP 109/59 07/26/17 16:00 Pulse Ox 97 07/26/17 16:00 Intake & Output 07/26/17 07/26/17 07/27/17 06:59 18:59 06:59 Intake Total 311 240 Output Total 400 700 Balance -89 -460 Weight 80.9 kg 80.9 kg Intake: Intake, IV Titration 75 Amount Sodium Chloride 0.9% 1, 75 000 ml @ 75 mls/hr IV . [id number] [facility] Rx#:[id number] Oral 236 240 Output: Urine 400 700 Uretheral (Thomason) 200 Other: Voiding Method Indwelling Catheter Indwelling Catheter # Voids 0 # Bowel Movements 0 - Exam GENERAL: The patient is alert and oriented x3, not in any acute distress. Well developed, well nourished. HEENT: Pupils are round and equally reacting to light. EOMI. No scleral icterus. No conjunctival pallor. Normocephalic, atraumatic. No pharyngeal erythema. No thyromegaly. CARDIOVASCULAR: S1 and S2 present. No murmurs, rubs, or gallops. PULMONARY: Rhonchus breath sounds significant expiratory wheezing was appreciated ABDOMEN: Soft, nontender, nondistended, normoactive bowel sounds. No palpable organomegaly. MUSCULOSKELETAL: No joint swelling or deformity. EXTREMITIES: No cyanosis, clubbing, or pedal edema. NEUROLOGICAL: Gross neurological examination did not reveal any focal deficits. SKIN: The lateral side of the left leg with skin breakdowns and previous bullous lesions significant redness, swelling extending almost up to the knee. redness since allied this improved significantly - Labs CBC & Chem 7: 07/26/17 05:50 07/25/17 06:17 Labs: Abnormal Lab Results - Last 24 Hours (Table) 07/26/17 Range/Units 05:50 RBC 2.38 L (4.30-5.90) m/uL Hgb 7.1 L (13.0-17.5) gm/dL Hct 23.0 L (39.0-53.0) % Neutrophils # 8.3 H (1.3-7.7) k/uL Lymphocytes # 0.6 L (1.0-4.8) k/uL Assessment and Plan Assessment: #1 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 #1 left lower extremity ruptured bullae with cellulitis. Possible sepsis from that and the patient will be is on IV vancomycin. #2 right lower lobe pneumonia for which patient is on Rocephin there is a possibility that patient has pneumonia. #3 COPD with acute exacerbation #4 anemia, chronic and macrocytic, patient does have acute GI bleed. Possible due to malignancy. Status post 1 unit PRBC transfusion #5 hypertension: Patient is presently hypotensive due to intravascular depletion or sepsis. #6 hyperkalemia: improved now #7 acute renal dysfunction most probably prerenal Azotemia , improved now #8 possible upper GI bleed no dark stools today continue with Protonix gastroneurology evaluated the patient. #9 DVT of the left femoral vein: Patient's anticoagulation is on hold because of recurrent GI bleed #10 atrial fibrillation presently on rate controlled continuous 50 twice a day of metoprolol #11 renal mass, right sided will need a biopsy complex renal mass Time with Patient: Greater than 30
[2017-07-27] MEDS: PANTOPRAZOLE 40 MG TABLET PO SCH ×2 (06:23→16:30)
[2017-07-27 06:29] LABS: Anion Gap 5 mmol/L; Blood Urea Nitrogen 24 mg/dL (9-20); Calcium 7.4 mg/dL (8.4-10.2); Carbon Dioxide 23 mmol/L (22-30); Chloride 108 mmol/L (98-107); Glucose 105 mg/dL (74-99); Non-African American GFR(MDRD) 55 (>60 ml/min/1.73 sqM); Potassium 4.4 mmol/L (3.5-5.1); Sodium 136 mmol/L (137-145)
[2017-07-27 06:38] LABS: Basophils % (A) 0 %; CH 29.7; CHCM 31.1; Eosinophils # (A) 0.6 k/uL (0-0.7); Eosinophils % (A) 6 %; HCT 22.8 % (39.0-53.0); HDW 3.14; Hypochromasia Moderate; Luc # (Auto) 0.19; Luc % (Auto) 2; Lymphocytes # (A) 0.4 k/uL (1.0-4.8); Lymphocytes % (A) 4 %; MCH 29.3 pg (25.0-35.0); MCHC 30.4 g/dL (31.0-37.0); MCV 96.3 fL (80.0-100.0); Mean Platelet Volume 6.6; Monocytes # (A) 0.5 k/uL (0-1.0); Monocytes % (A) 5 %; Neutrophils # (A) 8.2 k/uL (1.3-7.7); Neutrophils % (A) 83 %; RBC 2.36 m/uL (4.30-5.90); RDW 15.4 % (11.5-15.5); WBC 9.9 k/uL (3.8-10.6); WBC (Perox) 10.58
[2017-07-27 06:48] LABS: HGB 6.9 gm/dL (13.0-17.5)
[2017-07-27] MEDS: METOPROLOL TARTRATE 50 MG TAB PO SCH ×3 (08:51→21:52)
[2017-07-27] MEDS: TAMSULOSIN 0.4 MG CAP.ER.24H PO SCH (08:54)
[2017-07-27] MEDS: IPRATROPIUM-ALBUTEROL 3 ML NEB INHALATION SCH ×4 (09:29→19:59)
--- NOTE | 2017-07-27 10:08 | P.PN ---
Subjective Patient is seen in follow-up for acute kidney injury. His creatinine did come down to 1 but has been slowly going up and is 1.25 this morning. He is noted to have urinary retention for which a Thomason catheter is in place. He is also noted to have a renal mass with metastasis and is being followed by oncology. Patient denies any vomiting or diarrhea. Oral intake is fair. Denies chest pain or shortness of breath. Hemoglobin is noted to be low as 6.9 today. Vital signs are stable. General: The patient appeared well nourished and normally developed. HEENT: Head exam is unremarkable. Neck is without jugular venous distension. LUNGS: Lungs are clear to auscultation and percussion. Breath sounds decreased. HEART: Rate and Rhythm are regular. First and second heart sounds normal. No murmurs, rubs or gallops. ABDOMEN: Abdominal exam reveals normal bowel sounds. Non-tender and non- distended. No evidence of peritonitis. EXTREMITITES: No clubbing, cyanosis, or edema. Objective - Vital Signs Vital signs: Vital Signs Temp 98.9 F 07/27/17 08:00 Pulse 108 H 07/27/17 09:39 Resp 16 07/27/17 08:00 BP 111/53 07/27/17 08:00 Pulse Ox 98 07/27/17 08:00 Intake & Output 07/26/17 07/27/17 07/27/17 18:59 06:59 18:59 Intake Total 240 50 240 Output Total 700 800 Balance -460 50 -560 Weight 80.9 kg 49.5 kg Intake: Intake, IV Titration 50 Amount cefTRIAXone 1,000 mg In 50 Sodium Chloride 0.9% 50 ml @ 100 mls/hr IVPB Q24HR [facility] Rx#:[id number] Oral 240 240 Output: Urine 700 800 Other: Voiding Method Indwelling Catheter Indwelling Catheter Indwelling Catheter # Voids 0 # Bowel Movements 0 1 - Labs CBC & Chem 7: 07/27/17 05:51 07/27/17 05:51 Labs: Abnormal Lab Results - Last 24 Hours (Table) 07/27/17 07/27/17 Range/Units 05:51 05:51 RBC 2.36 L (4.30-5.90) m/uL Hgb 6.9 L* (13.0-17.5) gm/dL Hct 22.8 L (39.0-53.0) % MCHC 30.4 L (31.0-37.0) g/dL Neutrophils # 8.2 H (1.3-7.7) k/uL Lymphocytes # 0.4 L (1.0-4.8) k/uL Sodium 136 L (137-145) mmol/L Chloride 108 H (98-107) mmol/L BUN 24 H (9-20) mg/dL Glucose 105 H (74-99) mg/dL Calcium 7.4 L (8.4-10.2) mg/dL Assessment and Plan Plan: Assessment: #1. Nonoliguric acute kidney injury secondary to ATN. Creatinine did come down to 1 but has been gradually going up the last couple of days and is 1.25 this morning. I suspect this is due to hypoperfusion from anemia. #2. Urinary retention status post Thomason catheter placement. #3. Metastatic renal cancer. Oncology following. #4. Anemia likely related to underlying malignancy. He has received multiple blood transfusions this admission. Avoid use of ESAs due to malignancy. #5. Hyperkalemia on admission. Resolved. Plan: Encourage oral intake. Maintain Thomason catheter. Consider 1 unit blood transfusion today if okay with oncology. Avoid nephrotoxic agents and hypotensive episodes - hemodynamically stable. Repeat electrolytes in the morning.
[2017-07-27] MEDS: VANCOMYCIN 1,500 MG in SODIUM CHLORIDE 0.9% 250 ML IVPB SCH (16:26)
[2017-07-27] MEDS: cefTRIAXone IN SWFI 1,000 MG/10 ML SYRINGE IVP SCH (21:51)
[2017-07-27] MEDS: HYDROcodone/APAP 5-325MG 1 EACH TAB PO PRN (21:52)
--- NOTE | 2017-07-27 22:32 | P.PN ---
Subjective Progress Note Date: 07/27/17 Principal diagnosis: left leg pain 81-year-old male resents the emergency center with complaints of wound into his left leg. The patient speaks [place], if further information is coming from the chart at this time. As I enter the room the patient needs to urinate. He is given a urinal and probably urinates all over the floor and missed the urinal almost completely. To the patient's limited [place]ic he relates that he does have pain in the left leg. Patient does relate to pain to the left leg. Improved with the silvadene and wrap. Feels better today. but had gastrointestinal bleed. He had received a blood transfusion. He has been seen by the urologist for the renal mass. Computed tomography scan is performed which relates to an enlarging lesion highly consistent with metastatic renal cell carcinoma. The acute renal failure has improved. Overall the patient is improving. Still has the swelling and discomfort in the left leg. Deep venous thrombosis was noted in that limb. Objective - Vital Signs Vital signs: Vital Signs Temp 98.6 F 07/27/17 15:36 Pulse 92 07/27/17 20:24 Resp 16 07/27/17 15:36 BP 107/65 07/27/17 15:36 Pulse Ox 98 07/27/17 15:36 Intake & Output 07/27/17 07/27/17 07/28/17 06:59 18:59 06:59 Intake Total 50 360 Output Total 1000 Balance 50 -640 Weight 49.5 kg Intake: Intake, IV Titration 50 Amount cefTRIAXone 1,000 mg In 50 Sodium Chloride 0.9% 50 ml @ 100 mls/hr IVPB Q24HR [facility] Rx#:[id number] Oral 360 Output: Urine 1000 Other: Voiding Method Indwelling Catheter Indwelling Catheter # Bowel Movements 1 1 - Exam 81-year-old male who seems to be comfortable. HEENT: Anicteric conjunctiva are pink and moist nasal mucosa grossly intact without significant lesions, there is no thrush. Poor dentition Neck: The neck is supple without significant lymphadenopathy or thyromegaly. Lungs: Good bilateral air entry without significant crackles scattered wheezes are heard. There is no significant bronchial sounds. There is no egophony or dullness. Heart: Irregular with an audible S1 and S2 soft S4. There is no significant murmur click or rub, PMI was nondisplaced. Abdomen: Positive bowel sounds soft and nontender without palpable masses or organomegaly. There was no guarding or rebound. Extremities: The upper extremities have excellent pulses they are symmetric, no significant petechiae or telangiectasia. No splinter hemorrhages were noted. The right lower extremity is intact. There are no open lesions. Left lower extremity reveals evidence of the extensive swelling from the foot to just below the knee. There is distinct discoloration. There appears to be a chronic ulceration to the lateral aspect of the ankle and of the lower leg. There is evidence of blistering and denuded skin around the anterior aspect of the lower leg in the calf area. It is less tender. but improving with the Silvadene wrap. There continues to be serous drainage and multiple ABD pads are being utilized. Neuro: Awake alert cooperative, - Labs CBC & Chem 7: 07/27/17 05:51 07/27/17 05:51 Labs: Abnormal Lab Results - Last 24 Hours (Table) 07/27/17 07/27/17 07/27/17 Range/Units 05:51 05:51 16:44 RBC 2.36 L (4.30-5.90) m/uL Hgb 6.9 L* (13.0-17.5) gm/dL Hct 22.8 L (39.0-53.0) % MCHC 30.4 L (31.0-37.0) g/dL Neutrophils # 8.2 H (1.3-7.7) k/uL Lymphocytes # 0.4 L (1.0-4.8) k/uL Sodium 136 L (137-145) mmol/L Chloride 108 H (98-107) mmol/L BUN 24 H (9-20) mg/dL Glucose 105 H (74-99) mg/dL Calcium 7.4 L (8.4-10.2) mg/dL Crossmatch See Detail Laboratory Results WBC 9.9 k/uL (3.8-10.6) 07/27/17 05:51 RBC 2.36 m/uL (4.30-5.90) L 07/27/17 05:51 Hgb 6.9 gm/dL (13.0-17.5) L* 07/27/17 05:51 Hct 22.8 % (39.0-53.0) L 07/27/17 05:51 MCV 96.3 fL (80.0-100.0) 07/27/17 05:51 MCH 29.3 pg (25.0-35.0) 07/27/17 05:51 MCHC 30.4 g/dL (31.0-37.0) L 07/27/17 05:51 RDW 15.4 % (11.5-15.5) 07/27/17 05:51 Plt Count 297 k/uL (150-450) 07/27/17 05:51 Neutrophils % 83 % 07/27/17 05:51 Neutrophils % (Manual) 72 % 07/20/17 03:54 Band Neutrophils % 3 % 07/20/17 03:54 Lymphocytes % 4 % 07/27/17 05:51 Lymphocytes % (Manual) 12 % 07/20/17 03:54 Monocytes % 5 % 07/27/17 05:51 Monocytes % (Manual) 7 % 07/20/17 03:54 Eosinophils % 6 % 07/27/17 05:51 Eosinophils % (Manual) 3 % 07/20/17 03:54 Basophils % 0 % 07/27/17 05:51 Metamyelocytes % 3 % 07/20/17 03:54 Neutrophils # 8.2 k/uL (1.3-7.7) H 07/27/17 05:51 Neutrophils # (Manual) 10.20 k/uL (1.3-7.7) H 07/20/17 03:54 Lymphocytes # 0.4 k/uL (1.0-4.8) L 07/27/17 05:51 Lymphocytes # (Manual) 1.64 k/uL (1.0-4.8) 07/20/17 03:54 Monocytes # 0.5 k/uL (0-1.0) 07/27/17 05:51 Monocytes # (Manual) 0.96 k/uL (0-1.0) 07/20/17 03:54 Eosinophils # 0.6 k/uL (0-0.7) 07/27/17 05:51 Eosinophils # (Manual) 0.41 k/uL (0-0.7) 07/20/17 03:54 Basophils # 0.0 k/uL (0-0.2) 07/27/17 05:51 Metamyelocytes # (Man) 0.41 k/uL (0) H 07/20/17 03:54 Nucleated RBCs 0 /100 WBC (0-0) 07/20/17 03:54 Manual Slide Review Performed 07/20/17 03:54 Polychromasia Present 07/20/17 03:54 Hypochromasia Moderate 07/27/17 05:51 Poikilocytosis Slight 07/23/17 06:28 Anisocytosis Slight 07/25/17 06:17 Macrocytosis Slight 07/25/17 06:17 ESR 62 mm/hr (0-15) H 07/22/17 05:41 Retic Count 1.6 % (0.5-2.0) 07/22/17 05:41 Haptoglobin 145.0 mg/dL (31.2-198.0) 07/22/17 05:41 PT 12.8 sec (9.0-12.0) H 07/21/17 18:15 INR 1.3 (<1.2) H 07/21/17 18:15 APTT 25.6 sec (22.0-30.0) 07/24/17 12:20 Sodium 136 mmol/L (137-145) L 07/27/17 05:51 Potassium 4.4 mmol/L (3.5-5.1) 07/27/17 05:51 Chloride 108 mmol/L (98-107) H 07/27/17 05:51 Carbon Dioxide 23 mmol/L (22-30) 07/27/17 05:51 Anion Gap 5 mmol/L 07/27/17 05:51 BUN 24 mg/dL (9-20) H 07/27/17 05:51 Creatinine 1.25 mg/dL (0.66-1.25) 07/27/17 05:51 Est GFR (MDRD) Af Amer >60 (>60 ml/min/1.73 sqM) 07/27/17 05:51 Est GFR (MDRD) Non-Af 55 (>60 ml/min/1.73 sqM) 07/27/17 05:51 Glucose 105 mg/dL (74-99) H 07/27/17 05:51 POC Glucose (mg/dL) 101 mg/dL (75-99) H 07/19/17 23:43 POC Glu Railroad Operating [employer] ID Sandee Johnson 07/19/17 23:43 Calcium 7.4 mg/dL (8.4-10.2) L 07/27/17 05:51 Magnesium 2.2 mg/dL (1.6-2.3) 07/24/17 05:32 Iron 27 ug/dL (65-175) L 07/21/17 17:36 TIBC 246 ug/dL (228-460) 07/21/17 17:36 Iron Saturation 10.98 (15.00-50.00) L 07/21/17 17:36 Ferritin 231.4 ng/mL (22.0-322.0) 07/21/17 05:51 Total Bilirubin 0.8 mg/dL (0.2-1.3) 07/21/17 05:51 AST 35 U/L (17-59) 07/21/17 05:51 ALT 43 U/L (21-72) 07/21/17 05:51 Alkaline Phosphatase 90 U/L (38-126) 07/21/17 05:51 NT-Pro-B Natriuret Pep 5130 pg/mL 07/19/17 10:55 Total Protein 5.5 g/dL (6.3-8.2) L 07/21/17 05:51 Total Protein (PEP) 5.1 g/dL (6.2-8.2) L 07/22/17 05:41 Albumin 2.8 g/dL (3.5-5.0) L 07/21/17 05:51 Albumin (PEP) 2.59 g/dL (3.80-4.90) L 07/22/17 05:41 [place]-9-Zufpgqzzw 0.29 g/dL (0.10-0.40) 07/22/17 05:41 Wzlyw-0-Gjcbkuftt 0.70 g/dL (0.60-1.00) 07/22/17 05:41 Beta Globulins 0.74 g/dL (0.60-1.30) 07/22/17 05:41 Gamma Globulins 0.78 g/dL (0.70-1.50) 07/22/17 05:41 PEP Interpretation SEE NOTE 07/22/17 05:41 Vitamin B12 1232.0 pg/mL (200.0-944.0) H 07/19/17 18:01 Methylmalonic Acid 0.40 umol/L (<0.40) 07/22/17 05:41 RBC Folate 932 ng/mL (280 - 791) H 07/22/17 05:41 Urine Color Light Yellow 07/19/17 13:33 Urine Appearance Clear (Clear) 07/19/17 13:33 Urine pH 5.0 (5.0-8.0) 07/19/17 13:33 Ur Specific [place] 1.011 (1.001-1.035) 07/19/17 13:33 Urine Protein Negative (Negative) 07/19/17 13:33 Urine Glucose (UA) Negative (Negative) 07/19/17 13:33 Urine Ketones Negative (Negative) 07/19/17 13:33 Urine Blood Moderate (Negative) H 07/19/17 13:33 Urine Nitrite Negative (Negative) 07/19/17 13:33 Urine Bilirubin Negative (Negative) 07/19/17 13:33 Urine Urobilinogen <2.0 mg/dL (<2.0) 07/19/17 13:33 Ur Leukocyte Esterase Negative (Negative) 07/19/17 13:33 Urine RBC 50 /hpf (0-5) H 07/19/17 13:33 Urine WBC 2 /hpf (0-5) 07/19/17 13:33 Ur Squamous Epith Cells <1 /hpf (0-4) 07/19/17 13:33 Urine Mucus Rare /hpf (None) H 07/19/17 13:33 Ur Random Creatinine 36.9 mg/dL 07/19/17 14:37 Ur Random Sodium 71 mmol/L (30-90) 07/19/17 14:37 Stool Occult Blood Positive (Negative) 07/22/17 14:15 Vancomycin Trough 15.6 ug/mL 07/24/17 05:32 Serum AZAM Interpret SEE NOTE 07/22/17 05:41 Free [place] LC, Quant 4.90 mg/dL (0.33-1.94) H 07/22/17 05:41 Blood Type B Positive 07/27/17 16:44 Blood Type Confirm B Positive 07/19/17 10:55 Blood Type Recheck No 07/27/17 16:44 Antibody Screen NEGATIVE 07/27/17 16:44 Crossmatch See Detail 07/27/17 16:44 Spec Expiration Date 07/30/2017 - 2344 07/27/17 16:44 Microbiology 07/19/17 10:55 Blood Blood Culture - Final No Growth after 144 hours 07/19/17 10:55 Leg - Left Gram Stain - Final 07/19/17 10:55 Leg - Left Wound Culture - Final 07/19/17 13:33 Urine,Clean Catch Urine Culture - Final Assessment and Plan (1) Left leg cellulitis Narrative/Plan: 81-year-old male presents to hospital with his family with complaints of increasing difficulty to his left leg. It had blistered and had drainage and had redness. Suddenly concerns to a cellulitis. Local wound care with Silvadene will be initiated with some rolled gauze and Jayme to try to help the site. Wound culture is pending. Antimicrobial therapy has been an issue with vancomycin and ceftriaxone for now. A duplex was requested and there is concerned to deep venous thrombosis although may be old the patient was unable to cooperate well for the exam. Since center. Is now present he may be able to cooperate better for a relook. Clotting is of some concern given the data of the complex right renal mass and concerns to a renal carcinoma that is worsened since September of this year. ER notes are reviewed from the September stay. Which point in time the data was transmitted to his primary care physician who was to have follow-up with the outpatient setting. At this time it is unclear what has occurred. Imaging at that time revealed evidence of abnormalities in his lung which family related poor old and being found the outpatient setting also. Leukocytosis appears related to the process in the left leg. Is also concerned that he has acute renal failure that could be worsening because of the lesion on the kidney and some process. He has hyperkalemia that is being treated. Urinalysis is benign for infection. He has now been seen by urology and further workup was requested for the renal mass. CT reveals evidence of the increased mass highly consistent with renal cell carcinoma with metastasis. Likely etiology of his hypercoagulable state resulting in the left leg thrombosis in the significant disease. 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 The patient has no fever. The bullous lesions of the left leg have resolved. She was dictated note that was d responding to current antibiotic and local wound care. Residual ulceration is present. He is receiving evaluation for the deep venous thrombosis, but with the gastrointestinal bleed anticoagulation is problematic. It is quite unclear with overall plan will be at this time. When ready for discharge to home given the negative culture will be able to utilize cephalexin 500 mg every 8 hours for 7 days. Likely would have homecare for the dressing changes to the left leg if discharged home but maybe going to [facility]. Unclear what the discharge plan will be at this time given what appears to be progressive, metastatic renal cell carcinoma. The oncologist has been attempting to work with the patient's family to the next upper workup. A biopsy at this time would be indicated and required for diagnosis and develop the next best option will be. Appears there are extensive family dynamics J Current Visit: Yes Status: Acute Code(s): L03.116 - CELLULITIS OF LEFT LOWER LIMB SNOMED Code(s): 554375724 (2) Acute renal failure Current Visit: Yes Status: Acute Code(s): N17.9 - ACUTE KIDNEY FAILURE, UNSPECIFIED SNOMED Code(s): 60879857 (3) Right renal mass Current Visit: Yes Status: Acute Code(s): N28.89 - OTHER SPECIFIED DISORDERS OF KIDNEY AND URETER SNOMED Code(s): 820618710
--- NOTE | 2017-07-27 23:27 | P.PN ---
Subjective Progress Note Date: 07/27/17 Principal diagnosis: Left lower extremity cellulitis patient has multiple medical issues going on at this point of time and patient was a valid by multiple medical physicians. Patient was initially admitted verified lower limb cellulitis left lower limb , patient later had Doppler of the left lower extremity which showed a DVT, patient was already on 0 alto which is being held because of her dark stools. Patient was started on Protonix gastric body was consulted infectious disease and nephrology evaluated the patient. Patient is also found to haveright renal mass on the ultrasound of the abdomen and bladder, walk worse compared to last hospitalization her last ultrasound,oncology was consulted. Patient's anti-correlation is on hold. Patient's IV fluids were discontinued as patient had issues with shortness of breath and crackles on lung exam did obtain a chest x-ray probably will need an echocardiogram as well.I was able to come in again with the patient weight via 911 dispatcher 07/21/2017 patient is feeling much better today GI bleed improved his hemoglobin remains at 6 will transfuse 1 more unit of blood oncology attempt valid the patient.Can use to have leukocytosis 07/22/2017 Patient is feeling much better today even combative yesterday but the patient is bit tachycardic patient is in atrial fibrillation is already on anticoagulation patient the metoprolol dose will be increased and cardiology was consulted patient had normal ejection fraction. 07/23/2017 hemoglobin is stable no overnight events patient heart rate is getting better. 07/24/2017 Patient started having dark stools again IV heparin was discontinued gastroenterology and hematology and following the patient patient had a CT of the abdomen which she showed the mass which may need a biopsy, decision regarding biopsy as per oncology 2016 Patient is awake and oriented. Left lower activity cellulitis improving. CT abdomen showed a right renal mass possible metastatic lesions to liver. Oncology is following. 07/26/2017 Patient denied any complaints of chest pain or short of breath. No fever overnight. Left legs). cellulitis is improving. ID and oncology is following . Renal function improved. 07/27/2017 Patient's leg swelling is improving. No complaints of chest pain or short of breath. Billposter at bedside. Hemoglobin dropped to 6.9 today and was given 1 unit PRBC. Constitutional: Denied any fatigue denied any fever. Cardio vascular: denied any chest pain, palpitations Gastrointestinal denied any nausea vomiting Pulmonary: Denied any shortness of breath cough Neurologic denied any new focal deficits Objective - Vital Signs Vital signs: Vital Signs Temp 98.6 F 07/27/17 15:36 Pulse 92 07/27/17 20:24 Resp 16 07/27/17 15:36 BP 107/65 07/27/17 15:36 Pulse Ox 98 07/27/17 15:36 Intake & Output 07/27/17 07/27/17 07/28/17 06:59 18:59 06:59 Intake Total 50 360 Output Total 1000 Balance 50 -640 Weight 49.5 kg Intake: Intake, IV Titration 50 Amount cefTRIAXone 1,000 mg In 50 Sodium Chloride 0.9% 50 ml @ 100 mls/hr IVPB Q24HR [facility] Rx#:[id number] Oral 360 Output: Urine 1000 Other: Voiding Method Indwelling Catheter Indwelling Catheter # Bowel Movements 1 1 - Exam GENERAL: The patient is alert and oriented x3, not in any acute distress. Well developed, well nourished. HEENT: Pupils are round and equally reacting to light. EOMI. No scleral icterus. No conjunctival pallor. Normocephalic, atraumatic. No pharyngeal erythema. No thyromegaly. CARDIOVASCULAR: S1 and S2 present. No murmurs, rubs, or gallops. PULMONARY: Rhonchus breath sounds significant expiratory wheezing was appreciated ABDOMEN: Soft, nontender, nondistended, normoactive bowel sounds. No palpable organomegaly. MUSCULOSKELETAL: No joint swelling or deformity. EXTREMITIES: No cyanosis, clubbing, or pedal edema. NEUROLOGICAL: Gross neurological examination did not reveal any focal deficits. SKIN: The lateral side of the left leg with skin breakdowns and previous bullous lesions significant redness, swelling extending almost up to the knee. redness since allied this improved significantly - Labs CBC & Chem 7: 07/27/17 05:51 07/27/17 05:51 Labs: Abnormal Lab Results - Last 24 Hours (Table) 07/27/17 07/27/17 07/27/17 Range/Units 05:51 05:51 16:44 RBC 2.36 L (4.30-5.90) m/uL Hgb 6.9 L* (13.0-17.5) gm/dL Hct 22.8 L (39.0-53.0) % MCHC 30.4 L (31.0-37.0) g/dL Neutrophils # 8.2 H (1.3-7.7) k/uL Lymphocytes # 0.4 L (1.0-4.8) k/uL Sodium 136 L (137-145) mmol/L Chloride 108 H (98-107) mmol/L BUN 24 H (9-20) mg/dL Glucose 105 H (74-99) mg/dL Calcium 7.4 L (8.4-10.2) mg/dL Crossmatch See Detail Assessment and Plan Assessment: #1 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 #1 left lower extremity ruptured bullae with cellulitis. Possible sepsis from that and the patient will be is on IV vancomycin. #2 right lower lobe pneumonia for which patient is on Rocephin there is a possibility that patient has pneumonia. #3 COPD with acute exacerbation #4 anemia, chronic and macrocytic, patient does have acute GI bleed. Possible due to malignancy. Status post 1 unit PRBC transfusion #5 hypertension: Patient is presently hypotensive due to intravascular depletion or sepsis. #6 hyperkalemia: improved now #7 acute renal dysfunction most probably prerenal Azotemia , improved now #8 possible upper GI bleed no dark stools today continue with Protonix gastroneurology evaluated the patient. #9 DVT of the left femoral vein: Patient's anticoagulation is on hold because of recurrent GI bleed #10 atrial fibrillation presently on rate controlled continuous 50 twice a day of metoprolol #11 renal mass, right sided will need a biopsy complex renal mass Plan: Patient will be continued on antibiotics and follow renal function. Follow-up H &H. Patient's son is his caregiver and POA. Will discuss with the family regarding poor prognosis and possible transfer to comfort care. Time with Patient: Greater than 30
[2017-07-28] MEDS: HYDROcodone/APAP 5-325MG 1 EACH TAB PO PRN ×2 (06:18→17:15)
[2017-07-28] MEDS: PANTOPRAZOLE 40 MG TABLET PO SCH ×2 (06:18→17:11)
[2017-07-28 06:34] LABS: Anion Gap 5 mmol/L; Blood Urea Nitrogen 25 mg/dL (9-20); Calcium 7.5 mg/dL (8.4-10.2); Carbon Dioxide 23 mmol/L (22-30); Chloride 107 mmol/L (98-107); Glucose 103 mg/dL (74-99); Magnesium 2.2 mg/dL (1.6-2.3); Non-African American GFR(MDRD) 59 (>60 ml/min/1.73 sqM); Potassium 4.3 mmol/L (3.5-5.1); Sodium 135 mmol/L (137-145)
[2017-07-28] MEDS: IPRATROPIUM-ALBUTEROL 3 ML NEB INHALATION SCH ×4 (08:42→20:11)
[2017-07-28] MEDS: TAMSULOSIN 0.4 MG CAP.ER.24H PO SCH (09:21)
[2017-07-28] MEDS: METOPROLOL TARTRATE 50 MG TAB PO SCH ×3 (09:21→23:43)
[2017-07-28] MEDS: VANCOMYCIN 1,500 MG in SODIUM CHLORIDE 0.9% 250 ML IVPB SCH (09:24)
--- NOTE | 2017-07-28 12:21 | PN ---
PROGRESS NOTE Patient is seen for followup for acute kidney injury. His renal function has improved. However, patient's left leg cellulitis has not improved significantly. His leg is quite red and painful, currently wrapped. The patient also has metastatic right renal cell cancer. PHYSICAL EXAMINATION: Blood pressure is 122/72, heart rate 108 per minute. Patient is afebrile. Examination of the heart S1, S2. Examination of the lungs, bilateral breath sounds are heard. Decreased breath sounds at the bases. Abdomen is soft, nontender. Exam of lower extremity shows left leg significantly red and edematous and wrapped. The right lower extremity is also edematous with chronic skin changes. LABS: Sodium 135, potassium 4.3, serum creatinine 1.19. ASSESSMENT: 1. Acute kidney injury, currently resolved. 2. Hyperkalemia on admission, now improved. 3. Left lower extremity cellulitis with wounds being followed by Infectious Disease. 4. Urine retention, currently with indwelling Thomason. PLAN: Encourage increased oral intake. No other changes from Nephrology standpoint. Continue antibiotics. Overall prognosis is guarded. MMODL / IJN: [id number] /
[2017-07-28] MEDS: cefTRIAXone IN SWFI 1,000 MG/10 ML SYRINGE IVP SCH (20:04)
--- NOTE | 2017-07-28 23:26 | P.PN ---
Subjective Progress Note Date: 07/28/17 Principal diagnosis: Left lower extremity cellulitis patient has multiple medical issues going on at this point of time and patient was a valid by multiple medical physicians. Patient was initially admitted verified lower limb cellulitis left lower limb , patient later had Doppler of the left lower extremity which showed a DVT, patient was already on 0 alto which is being held because of her dark stools. Patient was started on Protonix gastric body was consulted infectious disease and nephrology evaluated the patient. Patient is also found to haveright renal mass on the ultrasound of the abdomen and bladder, walk worse compared to last hospitalization her last ultrasound,oncology was consulted. Patient's anti-correlation is on hold. Patient's IV fluids were discontinued as patient had issues with shortness of breath and crackles on lung exam did obtain a chest x-ray probably will need an echocardiogram as well.I was able to come in again with the patient weight via public safety dispatcher 07/21/2017 patient is feeling much better today GI bleed improved his hemoglobin remains at 6 will transfuse 1 more unit of blood oncology attempt valid the patient.Can use to have leukocytosis 07/22/2017 Patient is feeling much better today even combative yesterday but the patient is bit tachycardic patient is in atrial fibrillation is already on anticoagulation patient the metoprolol dose will be increased and cardiology was consulted patient had normal ejection fraction. 07/23/2017 hemoglobin is stable no overnight events patient heart rate is getting better. 07/24/2017 Patient started having dark stools again IV heparin was discontinued gastroenterology and hematology and following the patient patient had a CT of the abdomen which she showed the mass which may need a biopsy, decision regarding biopsy as per oncology 2016 Patient is awake and oriented. Left lower activity cellulitis improving. CT abdomen showed a right renal mass possible metastatic lesions to liver. Oncology is following. 07/26/2017 Patient denied any complaints of chest pain or short of breath. No fever overnight. Left legs). cellulitis is improving. ID and oncology is following . Renal function improved. 07/27/2017 Patient's leg swelling is improving. No complaints of chest pain or short of breath. Resizer Operator at bedside. Hemoglobin dropped to 6.9 today and was given 1 unit PRBC. Constitutional: Denied any fatigue denied any fever. Cardio vascular: denied any chest pain, palpitations Gastrointestinal denied any nausea vomiting Pulmonary: Denied any shortness of breath cough Neurologic denied any new focal deficits Objective - Vital Signs Vital signs: Vital Signs Temp 98.0 F 07/28/17 16:19 Pulse 104 H 07/28/17 20:21 Resp 18 07/28/17 16:19 BP 110/56 07/28/17 16:19 Pulse Ox 100 07/28/17 16:19 Intake & Output 07/28/17 07/28/17 07/29/17 06:59 18:59 06:59 Intake Total 620 360 Output Total 300 Balance 620 60 Weight 108.5 kg Intake: IV 310 blood 310 Oral 360 Blood Product 310 Rc As-1 Unit 310 [id number] Output: Urine 300 Other: Voiding Method Indwelling Catheter Indwelling Catheter # Voids 0 # Bowel Movements 1 - Exam GENERAL: The patient is alert and oriented x3, not in any acute distress. Well developed, well nourished. HEENT: Pupils are round and equally reacting to light. EOMI. No scleral icterus. No conjunctival pallor. Normocephalic, atraumatic. No pharyngeal erythema. No thyromegaly. CARDIOVASCULAR: S1 and S2 present. No murmurs, rubs, or gallops. PULMONARY: Rhonchus breath sounds significant expiratory wheezing was appreciated ABDOMEN: Soft, nontender, nondistended, normoactive bowel sounds. No palpable organomegaly. MUSCULOSKELETAL: No joint swelling or deformity. EXTREMITIES: No cyanosis, clubbing, or pedal edema. NEUROLOGICAL: Gross neurological examination did not reveal any focal deficits. SKIN: The lateral side of the left leg with skin breakdowns and previous bullous lesions significant redness, swelling extending almost up to the knee. 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 #1 left lower extremity ruptured bullae with cellulitis. Possible sepsis from that and the patient will be is on IV vancomycin. #2 right lower lobe pneumonia for which patient is on Rocephin there is a possibility that patient has pneumonia. #3 COPD with acute exacerbation #4 anemia, chronic and macrocytic, patient does have acute GI bleed. Possible due to malignancy. Status post 1 unit PRBC transfusion #5 hypertension: Patient is presently hypotensive due to intravascular depletion or sepsis. #6 hyperkalemia: improved now #7 acute renal dysfunction most probably prerenal Azotemia , improved now #8 possible upper GI bleed no dark stools today continue with Protonix gastroneurology evaluated the patient. #9 DVT of the left femoral vein: Patient's anticoagulation is on hold because of recurrent GI bleed #10 atrial fibrillation presently on rate controlled continuous 50 twice a day of metoprolol #11 renal mass, right sided will need a biopsy complex renal mass Plan: Patient will be continued on antibiotics and follow renal function. Follow-up H &H. Patient's son is his caregiver and POA. Will discuss with the family regarding poor prognosis and possible transfer to comfort care. Patient's son could not able to come to the hospital in the evening today
[2017-07-29] MEDS: VANCOMYCIN 1,500 MG in SODIUM CHLORIDE 0.9% 250 ML IVPB SCH ×2 (01:06→15:41)
[2017-07-29] MEDS: HYDROcodone/APAP 5-325MG 1 EACH TAB PO PRN (02:30)
[2017-07-29] MEDS: METOPROLOL TARTRATE 50 MG TAB PO SCH ×3 (08:38→21:21)
[2017-07-29] MEDS: PANTOPRAZOLE 40 MG TABLET PO SCH ×3 (08:38→17:41)
[2017-07-29] MEDS: IPRATROPIUM-ALBUTEROL 3 ML NEB INHALATION SCH ×4 (08:59→20:13)
[2017-07-29] MEDS: SILVER sulfADIAZINE Cream 400 GM 1 APPLIC APPLIC TOPICAL SCH ×2 (10:30→20:26)
[2017-07-29] MEDS: TAMSULOSIN 0.4 MG CAP.ER.24H PO SCH (10:30)
[2017-07-29] MEDS: ACETAMINOPHEN TAB 325 MG TAB PO PRN ×2 (15:42→21:21)
[2017-07-29] MEDS: cefTRIAXone IN SWFI 1,000 MG/10 ML SYRINGE IVP SCH (20:26)
--- NOTE | 2017-07-29 22:52 | P.PN ---
Subjective Progress Note Date: 07/29/17 Principal diagnosis: Left lower extremity cellulitis patient has multiple medical issues going on at this point of time and patient was a valid by multiple medical physicians. Patient was initially admitted verified lower limb cellulitis left lower limb , patient later had Doppler of the left lower extremity which showed a DVT, patient was already on 0 alto which is being held because of her dark stools. Patient was started on Protonix gastric body was consulted infectious disease and nephrology evaluated the patient. Patient is also found to haveright renal mass on the ultrasound of the abdomen and bladder, walk worse compared to last hospitalization her last ultrasound,oncology was consulted. Patient's anti-correlation is on hold. Patient's IV fluids were discontinued as patient had issues with shortness of breath and crackles on lung exam did obtain a chest x-ray probably will need an echocardiogram as well.I was able to come in again with the patient weight via allergist/pediatric pulmonologist 07/21/2017 patient is feeling much better today GI bleed improved his hemoglobin remains at 6 will transfuse 1 more unit of blood oncology attempt valid the patient.Can use to have leukocytosis 07/22/2017 Patient is feeling much better today even combative yesterday but the patient is bit tachycardic patient is in atrial fibrillation is already on anticoagulation patient the metoprolol dose will be increased and cardiology was consulted patient had normal ejection fraction. 07/23/2017 hemoglobin is stable no overnight events patient heart rate is getting better. 07/24/2017 Patient started having dark stools again IV heparin was discontinued gastroenterology and hematology and following the patient patient had a CT of the abdomen which she showed the mass which may need a biopsy, decision regarding biopsy as per oncology 2016 Patient is awake and oriented. Left lower activity cellulitis improving. CT abdomen showed a right renal mass possible metastatic lesions to liver. Oncology is following. 07/26/2017 Patient denied any complaints of chest pain or short of breath. No fever overnight. Left legs). cellulitis is improving. ID and oncology is following . Renal function improved. 07/27/2017 Patient's leg swelling is improving. No complaints of chest pain or short of breath. Pbx Repairer at bedside. Hemoglobin dropped to 6.9 today and was given 1 unit PRBC. 07/29/2017 Currently patient denied any new complaints. Patient is still having left lower extremity swelling and redness and warmth . No fever no chills. No other acute overnight issues. Discussed with his family today. Constitutional: Denied any fatigue denied any fever. Cardio vascular: denied any chest pain, palpitations Gastrointestinal denied any nausea vomiting Pulmonary: Denied any shortness of breath cough Neurologic denied any new focal deficits Objective - Vital Signs Vital signs: Vital Signs Temp 99.1 F 07/29/17 18:00 Pulse 96 07/29/17 20:46 Resp 18 07/29/17 15:00 BP 130/68 07/29/17 15:00 Pulse Ox 98 07/29/17 15:00 Intake & Output 07/29/17 07/29/17 07/30/17 06:59 18:59 06:59 Intake Total 1180 Output Total 600 825 Balance 580 -825 Intake: Oral 1180 Output: Urine 600 825 Uretheral (Thomason) 600 825 Other: Voiding Method Indwelling Catheter Indwelling Catheter - Exam GENERAL: The patient is alert and oriented x3, not in any acute distress. Well developed, well nourished. HEENT: Pupils are round and equally reacting to light. EOMI. No scleral icterus. No conjunctival pallor. Normocephalic, atraumatic. No pharyngeal erythema. No thyromegaly. CARDIOVASCULAR: S1 and S2 present. No murmurs, rubs, or gallops. PULMONARY: Rhonchus breath sounds significant expiratory wheezing was appreciated ABDOMEN: Soft, nontender, nondistended, normoactive bowel sounds. No palpable organomegaly. MUSCULOSKELETAL: No joint swelling or deformity. EXTREMITIES: No cyanosis, clubbing, or pedal edema. NEUROLOGICAL: Gross neurological examination did not reveal any focal deficits. SKIN: The lateral side of the left leg with skin breakdowns and previous bullous lesions significant redness, swelling extending almost up to the knee. 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 #1 left lower extremity ruptured bullae with cellulitis. Possible sepsis from that and the patient will be is on IV vancomycin and ceftriaxone. #2 right lower lobe pneumonia for which patient is on Rocephin #3 COPD with acute exacerbation. On admission improved now #4 anemia, chronic and macrocytic, patient does have acute GI bleed. Chronic anemia Possible due to malignancy. Status post 1 unit PRBC transfusion #5 hypertension: Patient was hypotensive due to intravascular depletion or sepsis. #6 hyperkalemia: improved now #7 acute renal dysfunction most probably prerenal Azotemia , improved now #8 possible upper GI bleed no dark stools today continue with Protonix gastroneurology evaluated the patient. #9 DVT of the left femoral vein: Patient's anticoagulation is on hold because of recurrent GI bleed #10 atrial fibrillation presently on rate controlled continuous 50 twice a day of metoprolol #11 renal mass, right sided will need a biopsy complex renal mass Plan: Patient will be continued on antibiotics and follow renal function. Follow-up H &H. Patient's son is his caregiver and POA. Discussed with patient's family in detail today. As per the family patient is being followed with his primary care physician and oncology for renal mass for the past few years. Which seems to be increasing in size recently. Patient also had history of DVT in the past. Patient was also having having gastric ulcers. Currently anticoagulation is on hold due to hemoglobin drop and possible GI bleed. We will continue to hold anticoagulation at this time. Family is requesting to get to a biopsy for which we will consult oncology to get to be done either in the hospital are as an outpatient procedure. Prognosis is poor with metastatic lesions. Adams that the patient has poor prognosis to the family. Time with Patient: Greater than 30
[2017-07-30] MEDS: ACETAMINOPHEN TAB 325 MG TAB PO PRN (04:54)
[2017-07-30] MEDS ORDERED: VANCOMYCIN TROUGH DUE 1 EACH MISC MISCELLANE ONE (07:00)
[2017-07-30 07:24] LABS: Anisocytosis Slight; Basophils % (A) 0 %; CH 29.4; CHCM 30.4; Eosinophils # (A) 0.3 k/uL (0-0.7); Eosinophils % (A) 6 %; HCT 22.9 % (39.0-53.0); HDW 3.07; Hypochromasia Moderate; Luc # (Auto) 0.15; Luc % (Auto) 4; Lymphocytes # (A) 0.5 k/uL (1.0-4.8); Lymphocytes % (A) 12 %; MCH 29.1 pg (25.0-35.0); MCHC 29.9 g/dL (31.0-37.0); MCV 97.2 fL (80.0-100.0); Macrocytosis Slight; Mean Platelet Volume 6.8; Monocytes # (A) 0.3 k/uL (0-1.0); Monocytes % (A) 8 %; Neutrophils % (A) 70 %; RBC 2.36 m/uL (4.30-5.90); WBC 4.2 k/uL (3.8-10.6); WBC (Perox) 4.36
[2017-07-30 07:25] LABS: HGB 6.9 gm/dL (13.0-17.5)
[2017-07-30 07:28] LABS: Anion Gap 7 mmol/L; Blood Urea Nitrogen 19 mg/dL (9-20); Calcium 7.4 mg/dL (8.4-10.2); Carbon Dioxide 21 mmol/L (22-30); Chloride 109 mmol/L (98-107); Glucose 90 mg/dL (74-99); Non-African American GFR(MDRD) >60 (>60 ml/min/1.73 sqM); Potassium 4.1 mmol/L (3.5-5.1); Sodium 137 mmol/L (137-145)
[2017-07-30] MEDS: IPRATROPIUM-ALBUTEROL 3 ML NEB INHALATION SCH ×4 (08:06→20:57)
[2017-07-30] MEDS: SILVER sulfADIAZINE Cream 400 GM 1 APPLIC APPLIC TOPICAL SCH ×2 (08:20→20:13)
[2017-07-30] MEDS: TAMSULOSIN 0.4 MG CAP.ER.24H PO SCH (08:20)
[2017-07-30] MEDS: VANCOMYCIN 1,500 MG in SODIUM CHLORIDE 0.9% 250 ML IVPB SCH (08:20)
[2017-07-30] MEDS: METOPROLOL TARTRATE 50 MG TAB PO SCH ×3 (08:20→22:16)
[2017-07-30] MEDS: PANTOPRAZOLE 40 MG TABLET PO SCH ×2 (08:21→17:08)
[2017-07-30] MEDS: HYDROcodone/APAP 5-325MG 1 EACH TAB PO PRN ×2 (10:14→17:12)
--- NOTE | 2017-07-30 10:34 | P.PN ---
Subjective Progress Note Date: 07/30/17 Pt seen with stanley The pt is clinically unchanged, and denies any new complaints. He continues to have some discomfort in the left lower extremity, which is improved. No obvious bleeding Objective - Vital Signs Vital signs: Vital Signs Temp 97.7 F 07/30/17 07:00 Pulse 90 07/30/17 08:17 Resp 18 07/30/17 07:00 BP 118/64 07/30/17 07:00 Pulse Ox 98 07/30/17 07:00 Intake & Output 07/29/17 07/30/17 07/30/17 18:59 06:59 18:59 Intake Total 1180 Output Total 825 500 Balance -825 680 Intake: Oral 1180 Output: Urine 825 500 Uretheral (Thomason) 825 500 Other: Voiding Method Indwelling Catheter Indwelling Catheter Indwelling Catheter # Voids 1 - Constitutional General appearance: Present: no acute distress - EENT Eyes: Present: PERRLA ENT: Present: thrush - Respiratory Respiratory: bilateral: CTA - Cardiovascular Rhythm: regular Heart sounds: normal: S1, S2 - Gastrointestinal General gastrointestinal: Present: soft - Integumentary Integumentary Comment(s): Left lower extremity cellulitis and ulceration. Currently bandaged - Neurologic Neurologic: Present: CNII-XII intact - Musculoskeletal Musculoskeletal: Present: generalized weakness - Psychiatric Psychiatric: Present: A&O x's 3, appropriate affect - Labs CBC & Chem 7: 07/30/17 06:33 07/30/17 06:33 Labs: Abnormal Lab Results - Last 24 Hours (Table) 07/27/17 07/30/17 07/30/17 Range/Units 16:44 06:33 06:33 RBC 2.36 L (4.30-5.90) m/uL Hgb 6.9 L* (13.0-17.5) gm/dL Hct 22.9 L (39.0-53.0) % MCHC 29.9 L (31.0-37.0) g/dL RDW 17.0 H (11.5-15.5) % Lymphocytes # 0.5 L (1.0-4.8) k/uL Chloride 109 H (98-107) mmol/L Carbon Dioxide 21 L (22-30) mmol/L Calcium 7.4 L (8.4-10.2) mg/dL Crossmatch See Detail Assessment and Plan (1) Anemia Narrative/Plan: Hemoglobin continues to fluctuate, in the high 6-7 range. He has no obvious active bleeding. As noted previously, I suspect that his anemia is hypoproliferative though ongoing bleed cannot be totally ruled out. We will transfuse another unit today for hemoglobin of 6.9 Current Visit: Yes Status: Acute Code(s): D64.9 - ANEMIA, UNSPECIFIED SNOMED Code(s): 584331322 (2) Deep vein thrombosis of left lower extremity Narrative/Plan: Identical radiation was discontinued due to concerns for bleeding. This is most likely related to malignancy, given the CT scan appearance. If the family does choose active treatment, we will need to consider IVC filter placement Current Visit: Yes Status: Acute Code(s): I82.402 - ACUTE EMBOLISM AND THOMBOS UNSP DEEP VEINS OF L LOW EXTREM SNOMED Code(s): 128297336 (3) Right renal mass Narrative/Plan: It has been discussed with his son multiple times, that his most recent CT scan of the abdomen and pelvis is suggestive of progressive malignancy. The renal mass has enlarged significantly compared to 10/04. He has also developed new adenopathy. On my conversations with him, the son had said that he would make her decision after consulting with his sister. He had indicated that the renal mass was present before. However it was clearly stated to him multiple times, that has been a significant change. The admitting service did have an extensive discussion with the son yesterday. Rapidly he was agreeable for a biopsy. He had discussed the biopsy with the patient according to the seismic interpreter. The seismic interpreter confirmed with the patient that he wanted a biopsy. She additionally also called son, who agreed to the biopsy. Consult to interventional radiology will be placed for the same. Coags will be repeated. Current Visit: Yes Status: Acute Code(s): N28.89 - OTHER SPECIFIED DISORDERS OF KIDNEY AND URETER SNOMED Code(s): 262199596 Plan: Nystatin was prescribed for oral thrush
[2017-07-30] MEDS: NYSTATIN 100,000 UNIT/ML SUSP 500,000 UNIT/5 ML CUP PO SCH ×3 (13:57→22:16)
[2017-07-30] MEDS: cefTRIAXone IN SWFI 1,000 MG/10 ML SYRINGE IVP SCH (20:12)
--- NOTE | 2017-07-30 22:21 | P.PN ---
Subjective Progress Note Date: 07/30/17 Principal diagnosis: Left lower extremity cellulitis patient has multiple medical issues going on at this point of time and patient was a valid by multiple medical physicians. Patient was initially admitted verified lower limb cellulitis left lower limb , patient later had Doppler of the left lower extremity which showed a DVT, patient was already on 0 alto which is being held because of her dark stools. Patient was started on Protonix gastric body was consulted infectious disease and nephrology evaluated the patient. Patient is also found to haveright renal mass on the ultrasound of the abdomen and bladder, walk worse compared to last hospitalization her last ultrasound,oncology was consulted. Patient's anti-correlation is on hold. Patient's IV fluids were discontinued as patient had issues with shortness of breath and crackles on lung exam did obtain a chest x-ray probably will need an echocardiogram as well.I was able to come in again with the patient weight via cold storage superintendent 07/21/2017 patient is feeling much better today GI bleed improved his hemoglobin remains at 6 will transfuse 1 more unit of blood oncology attempt valid the patient.Can use to have leukocytosis 07/22/2017 Patient is feeling much better today even combative yesterday but the patient is bit tachycardic patient is in atrial fibrillation is already on anticoagulation patient the metoprolol dose will be increased and cardiology was consulted patient had normal ejection fraction. 07/23/2017 hemoglobin is stable no overnight events patient heart rate is getting better. 07/24/2017 Patient started having dark stools again IV heparin was discontinued gastroenterology and hematology and following the patient patient had a CT of the abdomen which she showed the mass which may need a biopsy, decision regarding biopsy as per oncology 2016 Patient is awake and oriented. Left lower activity cellulitis improving. CT abdomen showed a right renal mass possible metastatic lesions to liver. Oncology is following. 07/26/2017 Patient denied any complaints of chest pain or short of breath. No fever overnight. Left legs). cellulitis is improving. ID and oncology is following . Renal function improved. 07/27/2017 Patient's leg swelling is improving. No complaints of chest pain or short of breath. Finish Repair Worker at bedside. Hemoglobin dropped to 6.9 today and was given 1 unit PRBC. 07/29/2017 Currently patient denied any new complaints. Patient is still having left lower extremity swelling and redness and warmth . No fever no chills. No other acute overnight issues. Discussed with his family today. 07/30/2017 Patient is still having leg swelling but swelling is improved today as well as redness. Otherwise patient is still on antibiotics in the form of vancomycin. Patient scheduled for a biopsy tomorrow. Communicated with cold storage superintendent at bedside. Constitutional: Denied any fatigue denied any fever. Cardio vascular: denied any chest pain, palpitations Gastrointestinal denied any nausea vomiting Pulmonary: Denied any shortness of breath cough Neurologic denied any new focal deficits Objective - Vital Signs Vital signs: Vital Signs Temp 98.3 F 07/30/17 15:00 Pulse 82 07/30/17 15:52 Resp 18 07/30/17 15:00 BP 132/72 07/30/17 15:00 Pulse Ox 100 07/30/17 15:00 Intake & Output 07/30/17 07/30/17 07/31/17 06:59 18:59 06:59 Intake Total 1180 310 Output Total 500 550 Balance 680 -240 Intake: Oral 1180 Blood Product 310 Rc As-1 Unit 310 [id number] Output: Urine 500 550 Uretheral (Thomason) 500 550 Other: Voiding Method Indwelling Catheter Indwelling Catheter # Voids 1 # Bowel Movements 1 - Exam GENERAL: The patient is alert and oriented x3, not in any acute distress. Well developed, well nourished. HEENT: Pupils are round and equally reacting to light. EOMI. No scleral icterus. No conjunctival pallor. Normocephalic, atraumatic. No pharyngeal erythema. No thyromegaly. CARDIOVASCULAR: S1 and S2 present. No murmurs, rubs, or gallops. PULMONARY: Rhonchus breath sounds significant expiratory wheezing was appreciated ABDOMEN: Soft, nontender, nondistended, normoactive bowel sounds. No palpable organomegaly. MUSCULOSKELETAL: No joint swelling or deformity. EXTREMITIES: No cyanosis, clubbing, or pedal edema. NEUROLOGICAL: Gross neurological examination did not reveal any focal deficits. SKIN: The lateral side of the left leg with skin breakdowns and previous bullous lesions significant redness, swelling extending almost up to the knee. 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 #1 left lower extremity ruptured bullae with cellulitis. Possible sepsis from that and the patient will be is on IV vancomycin and ceftriaxone. #2 right lower lobe pneumonia for which patient is on Rocephin #3 COPD with acute exacerbation. On admission improved now #4 anemia, chronic and macrocytic, patient does have acute GI bleed. Chronic anemia Possible due to malignancy. Status post 1 unit PRBC transfusion #5 hypertension: Patient was hypotensive due to intravascular depletion or sepsis. #6 hyperkalemia: improved now #7 acute renal dysfunction most probably prerenal Azotemia , improved now #8 possible upper GI bleed no dark stools today continue with Protonix gastroneurology evaluated the patient. #9 DVT of the left femoral vein: Patient's anticoagulation is on hold because of recurrent GI bleed #10 atrial fibrillation presently on rate controlled continuous 50 twice a day of metoprolol #11 renal mass, right sided will need a biopsy complex renal mass Plan: Patient will be continued on antibiotics and follow renal function. Follow-up H &H. Patient's son is his caregiver and POA. Discussed with patient's family in detail today. As per the family patient is being followed with his primary care physician and oncology for renal mass for the past few years. Which seems to be increasing in size recently. Patient also had history of DVT in the past. Patient was also having having gastric ulcers. Currently anticoagulation is on hold due to hemoglobin drop and possible GI bleed. We will continue to hold anticoagulation at this time. Family is requesting to get to a biopsy which is scheduled for tomorrow. Prognosis is poor with metastatic lesions. Adams that the patient has poor prognosis to the family.
[2017-07-30] MEDS: VANCOMYCIN 1,250 MG in SODIUM CHLORIDE 0.9% 250 ML IVPB SCH (23:23)
[2017-07-31] MEDS: HYDROcodone/APAP 5-325MG 1 EACH TAB PO PRN (05:42)
[2017-07-31 07:43] LABS: INR 1.3 (<1.2); Partial Thromboplastin Time 25.2 sec (22.0-30.0)
[2017-07-31] MEDS: IPRATROPIUM-ALBUTEROL 3 ML NEB INHALATION SCH ×4 (09:14→19:47)
[2017-07-31] MEDS: NYSTATIN 100,000 UNIT/ML SUSP 500,000 UNIT/5 ML CUP PO SCH ×4 (09:31→20:05)
[2017-07-31] MEDS: PANTOPRAZOLE 40 MG TABLET PO SCH ×2 (09:31→17:24)
[2017-07-31] MEDS: SILVER sulfADIAZINE Cream 400 GM 1 APPLIC APPLIC TOPICAL SCH ×2 (09:32→20:05)
[2017-07-31] MEDS: TAMSULOSIN 0.4 MG CAP.ER.24H PO SCH (09:32)
[2017-07-31] MEDS: METOPROLOL TARTRATE 50 MG TAB PO SCH ×3 (09:32→20:21)
[2017-07-31 10:25] LABS: Anion Gap 5 mmol/L; Blood Urea Nitrogen 18 mg/dL (9-20); Calcium 7.4 mg/dL (8.4-10.2); Carbon Dioxide 22 mmol/L (22-30); Chloride 106 mmol/L (98-107); Glucose 85 mg/dL (74-99); Non-African American GFR(MDRD) >60 (>60 ml/min/1.73 sqM); Potassium 4.2 mmol/L (3.5-5.1); Sodium 133 mmol/L (137-145)
[2017-07-31 11:07] LABS: Anisocytosis Slight; Basophils % (A) 1 %; CHCM 30.7; Eosinophils # (A) 0.2 k/uL (0-0.7); Eosinophils % (A) 5 %; HCT 24.9 % (39.0-53.0); HDW 3.21; HGB 7.7 gm/dL (13.0-17.5); Hypochromasia Moderate; Luc # (Auto) 0.09; Luc % (Auto) 2; Lymphocytes # (A) 0.5 k/uL (1.0-4.8); Lymphocytes % (A) 11 %; MCH 28.6 pg (25.0-35.0); MCHC 31.1 g/dL (31.0-37.0); Mean Platelet Volume 7.7; Monocytes # (A) 0.5 k/uL (0-1.0); Monocytes % (A) 12 %; Neutrophils # (A) 3.3 k/uL (1.3-7.7); Neutrophils % (A) 70 %; RBC 2.71 m/uL (4.30-5.90); RDW 16.1 % (11.5-15.5); WBC 4.7 k/uL (3.8-10.6); WBC (Perox) 4.85
[2017-07-31 12:46] LABS: Manual Review Performed
--- NOTE | 2017-07-31 15:56 | CT ---
EXAMINATION TYPE: CT biopsy renal RT DATE OF EXAM: 07/31/2017 COMPARISON: NONE HISTORY: Right renal mass CT DLP: 1907 mGycm The procedure was explained to the patient. The risks, complications, benefits, and alternatives wer e discussed and any questions were answered. Informed consent was obtained via auto locator. Patient was placed prone on the CT table and prepped and draped in the usual sterile fashion. Utilizing CT guidance, an 22-gauge needle access into the right renal mass was achieved and multiple samples were obtained. The patient was stable throughout the procedure and remained stable upon disc harge. The masses appear to be chronic. This is quite lower the diagnostic annual exam. IMPRESSION: 1. Status post FNA right renal mass. Mass appears to be necrotic which will lower the diagnostic jimbo boston
[2017-07-31] MEDS: VANCOMYCIN 1,250 MG in SODIUM CHLORIDE 0.9% 250 ML IVPB SCH (17:22)
[2017-07-31 18:35] LABS: Amorphous Sediment,Urine Rare /hpf; Appearance,Urine Turbid (Clear); Bilirubin,Urine Negative (Negative); Glucose,Urine (UA) Negative (Negative); Ketones,Urine Negative (Negative); Leukocyte Esterase,Urine Large (Negative); Mucus,Urine Rare /hpf; Nitrite,Urine Negative (Negative); Particle Count 12388; Protein,Urine 1+ (Negative); RBC,Urine 107 /hpf (0-5); Specific Gravity,Urine 1.013 (1.001-1.035); UA Billing (MACRO vs. MICRO) MICRO; WBC,Urine 24 /hpf (0-5)
[2017-07-31] MEDS: cefTRIAXone IN SWFI 1,000 MG/10 ML SYRINGE IVP SCH (20:05)
--- NOTE | 2017-07-31 23:12 | P.PN ---
Subjective Progress Note Date: 07/31/17 Principal diagnosis: Left lower extremity cellulitis patient has multiple medical issues going on at this point of time and patient was a valid by multiple medical physicians. Patient was initially admitted verified lower limb cellulitis left lower limb , patient later had Doppler of the left lower extremity which showed a DVT, patient was already on 0 alto which is being held because of her dark stools. Patient was started on Protonix gastric body was consulted infectious disease and nephrology evaluated the patient. Patient is also found to haveright renal mass on the ultrasound of the abdomen and bladder, walk worse compared to last hospitalization her last ultrasound,oncology was consulted. Patient's anti-correlation is on hold. Patient's IV fluids were discontinued as patient had issues with shortness of breath and crackles on lung exam did obtain a chest x-ray probably will need an echocardiogram as well.I was able to come in again with the patient weight via health support specialist 07/21/2017 patient is feeling much better today GI bleed improved his hemoglobin remains at 6 will transfuse 1 more unit of blood oncology attempt valid the patient.Can use to have leukocytosis 07/22/2017 Patient is feeling much better today even combative yesterday but the patient is bit tachycardic patient is in atrial fibrillation is already on anticoagulation patient the metoprolol dose will be increased and cardiology was consulted patient had normal ejection fraction. 07/23/2017 hemoglobin is stable no overnight events patient heart rate is getting better. 07/24/2017 Patient started having dark stools again IV heparin was discontinued gastroenterology and hematology and following the patient patient had a CT of the abdomen which she showed the mass which may need a biopsy, decision regarding biopsy as per oncology 2016 Patient is awake and oriented. Left lower activity cellulitis improving. CT abdomen showed a right renal mass possible metastatic lesions to liver. Oncology is following. 07/26/2017 Patient denied any complaints of chest pain or short of breath. No fever overnight. Left legs). cellulitis is improving. ID and oncology is following . Renal function improved. 07/27/2017 Patient's leg swelling is improving. No complaints of chest pain or short of breath. Refuse Collector Supervisor at bedside. Hemoglobin dropped to 6.9 today and was given 1 unit PRBC. 07/29/2017 Currently patient denied any new complaints. Patient is still having left lower extremity swelling and redness and warmth . No fever no chills. No other acute overnight issues. Discussed with his family today. 07/30/2017 Patient is still having leg swelling but swelling is improved today as well as redness. Otherwise patient is still on antibiotics in the form of vancomycin. Patient scheduled for a biopsy tomorrow. Communicated with health support specialist at bedside. 07/31/2017 Patient denied any chest pain or shortness of breath. Left lower extremity cellulitis improving slowly. Otherwise patient did have CT guided needle biopsy done today. Anticipate discharge in next 24 hours to rehab. Constitutional: Denied any fatigue denied any fever. Cardio vascular: denied any chest pain, palpitations Gastrointestinal denied any nausea vomiting Pulmonary: Denied any shortness of breath cough Neurologic denied any new focal deficits Objective - Vital Signs Vital signs: Vital Signs Temp 97.6 F 07/31/17 16:07 Pulse 102 H 07/31/17 19:58 Resp 14 07/31/17 16:07 BP 135/76 07/31/17 16:07 Pulse Ox 94 L 07/31/17 16:07 Intake & Output 07/31/17 07/31/17 08/01/17 06:59 18:59 06:59 Intake Total 750 Output Total 350 1600 Balance 400 -1600 Intake: IV 250 Vancomycin 1,500 mg In 250 Sodium Chloride 0.9% 250 ml @ 125 mls/hr IVPB Q16H [facility] Rx#:[id number] Oral 500 Output: Urine 350 1600 Uretheral (Thomason) 350 700 Other: Voiding Method Indwelling Catheter Indwelling Catheter - Exam GENERAL: The patient is alert and oriented x3, not in any acute distress. Well developed, well nourished. HEENT: Pupils are round and equally reacting to light. EOMI. No scleral icterus. No conjunctival pallor. Normocephalic, atraumatic. No pharyngeal erythema. No thyromegaly. CARDIOVASCULAR: S1 and S2 present. No murmurs, rubs, or gallops. PULMONARY: Rhonchus breath sounds significant expiratory wheezing was appreciated ABDOMEN: Soft, nontender, nondistended, normoactive bowel sounds. No palpable organomegaly. MUSCULOSKELETAL: No joint swelling or deformity. EXTREMITIES: No cyanosis, clubbing, or pedal edema. NEUROLOGICAL: Gross neurological examination did not reveal any focal deficits. SKIN: The lateral side of the left leg with skin breakdowns and previous bullous lesions significant redness, swelling extending almost up to the knee. redness since allied this improved significantly - Labs CBC & Chem 7: 07/31/17 06:56 07/31/17 06:56 Labs: Abnormal Lab Results - Last 24 Hours (Table) 07/31/17 07/31/17 07/31/17 Range/Units 06:56 06:56 06:56 RBC 2.71 L (4.30-5.90) m/uL Hgb 7.7 L (13.0-17.5) gm/dL Hct 24.9 L (39.0-53.0) % RDW 16.1 H (11.5-15.5) % Lymphocytes # 0.5 L (1.0-4.8) k/uL PT 13.0 H (9.0-12.0) sec INR 1.3 H (<1.2) Sodium 133 L (137-145) mmol/L Calcium 7.4 L (8.4-10.2) mg/dL Urine Protein (Negative) Urine Blood (Negative) Ur Leukocyte Esterase (Negative) Urine RBC (0-5) /hpf Urine WBC (0-5) /hpf Urine WBC Clumps (None) /hpf Amorphous Sediment (None) /hpf Urine Mucus (None) /hpf Urine Yeast (Budding) (None) /hpf 07/31/17 Range/Units 18:20 RBC (4.30-5.90) m/uL Hgb (13.0-17.5) gm/dL Hct (39.0-53.0) % RDW (11.5-15.5) % Lymphocytes # (1.0-4.8) k/uL PT (9.0-12.0) sec INR (<1.2) Sodium (137-145) mmol/L Calcium (8.4-10.2) mg/dL Urine Protein 1+ H (Negative) Urine Blood Moderate H (Negative) Ur Leukocyte Esterase Large H (Negative) Urine RBC 107 H (0-5) /hpf Urine WBC 24 H (0-5) /hpf Urine WBC Clumps Occasional H (None) /hpf Amorphous Sediment Rare H (None) /hpf Urine Mucus Rare H (None) /hpf Urine Yeast (Budding) Occasional H (None) /hpf Assessment and Plan Assessment: #1 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 #1 left lower extremity ruptured bullae with cellulitis. Possible sepsis from that and the patient will be is on IV vancomycin and ceftriaxone. #2 right lower lobe pneumonia for which patient is on Rocephin #3 COPD with acute exacerbation. On admission improved now #4 anemia, chronic and macrocytic, patient does have acute GI bleed. Chronic anemia Possible due to malignancy. Status post 1 unit PRBC transfusion #5 hypertension: Patient was hypotensive due to intravascular depletion or sepsis. #6 hyperkalemia: improved now #7 acute renal dysfunction most probably prerenal Azotemia , improved now #8 possible upper GI bleed no dark stools today continue with Protonix gastroneurology evaluated the patient. #9 DVT of the left femoral vein: Patient's anticoagulation is on hold because of recurrent GI bleed #10 atrial fibrillation presently on rate controlled continuous 50 twice a day of metoprolol #11 renal mass, right sided will need a biopsy complex renal mass Plan: Patient will be continued on antibiotics and follow renal function. Follow-up H &H. Antivirus can be changed to Keflex as per ID final recommendations upon discharge. Patient's son is his caregiver and POA. As per the family patient is being followed with his primary care physician and oncology for renal mass for the past few years. Which seems to be increasing in size recently. Patient also had history of DVT in the past. Patient was also having having gastric ulcers. Currently anticoagulation is on hold due to hemoglobin drop and possible GI bleed. We will continue to hold anticoagulation at this time. Family is requesting to get to a biopsy which is scheduled for today. Prognosis is poor with metastatic lesions. Adams that the patient has poor prognosis to the family. Anticipate discharge to rehab tomorrow after a biopsy and follow with oncology and primary care physician as an outpatient. Time with Patient: Greater than 30
[2017-08-01 07:39] LABS: Aty Lym Flag Slight; CH 29.3; CHCM 31.6; HCT 25.9 % (39.0-53.0); HDW 3.39; Hypochromasia Moderate; MCH 28.7 pg (25.0-35.0); MCHC 30.8 g/dL (31.0-37.0); MCV 93.2 fL (80.0-100.0); Mean Platelet Volume 6.5; RBC 2.78 m/uL (4.30-5.90); RDW 15.2 % (11.5-15.5); WBC 5.3 k/uL (3.8-10.6); WBC (Perox) 5.35
[2017-08-01 07:47] LABS: Add Differential Manual Differential
[2017-08-01 07:59] LABS: Manual Review Performed; Nucleated Red Blood Cells 0 /100 WBC (0-0); Total Cells Counted 100
[2017-08-01 08:01] LABS: Anion Gap 6 mmol/L; Blood Urea Nitrogen 18 mg/dL (9-20); Calcium 7.6 mg/dL (8.4-10.2); Carbon Dioxide 22 mmol/L (22-30); Chloride 107 mmol/L (98-107); Glucose 87 mg/dL (74-99); Non-African American GFR(MDRD) >60 (>60 ml/min/1.73 sqM); Sodium 135 mmol/L (137-145)
[2017-08-01] MEDS: IPRATROPIUM-ALBUTEROL 3 ML NEB INHALATION SCH ×4 (08:44→21:06)
[2017-08-01] MEDS: VANCOMYCIN 1,250 MG in SODIUM CHLORIDE 0.9% 250 ML IVPB SCH (09:05)
[2017-08-01] MEDS: METOPROLOL TARTRATE 50 MG TAB PO SCH ×3 (09:09→22:24)
[2017-08-01] MEDS: NYSTATIN 100,000 UNIT/ML SUSP 500,000 UNIT/5 ML CUP PO SCH ×4 (09:09→22:24)
[2017-08-01] MEDS: TAMSULOSIN 0.4 MG CAP.ER.24H PO SCH (09:09)
[2017-08-01] MEDS: PANTOPRAZOLE 40 MG TABLET PO SCH ×2 (09:09→18:10)
[2017-08-01] MEDS: SILVER sulfADIAZINE Cream 400 GM 1 APPLIC APPLIC TOPICAL SCH ×2 (09:10→20:35)
[2017-08-01] MEDS: cefTRIAXone IN SWFI 1,000 MG/10 ML SYRINGE IVP SCH (20:35)
[2017-08-02] MEDS: VANCOMYCIN 1,250 MG in SODIUM CHLORIDE 0.9% 250 ML IVPB SCH ×2 (03:36→17:59)
[2017-08-02 07:25] LABS: Anion Gap 7 mmol/L; Blood Urea Nitrogen 17 mg/dL (9-20); Calcium 7.6 mg/dL (8.4-10.2); Carbon Dioxide 24 mmol/L (22-30); Chloride 105 mmol/L (98-107); Glucose 88 mg/dL (74-99); Non-African American GFR(MDRD) >60 (>60 ml/min/1.73 sqM); Sodium 136 mmol/L (137-145)
[2017-08-02] MEDS: IPRATROPIUM-ALBUTEROL 3 ML NEB INHALATION SCH ×3 (07:48→20:34)
[2017-08-02] MEDS: PANTOPRAZOLE 40 MG TABLET PO SCH ×2 (09:22→17:59)
[2017-08-02] MEDS: NYSTATIN 100,000 UNIT/ML SUSP 500,000 UNIT/5 ML CUP PO SCH ×4 (09:22→21:04)
[2017-08-02] MEDS: METOPROLOL TARTRATE 50 MG TAB PO SCH ×3 (09:22→21:04)
[2017-08-02] MEDS: TAMSULOSIN 0.4 MG CAP.ER.24H PO SCH (09:22)
[2017-08-02 12:24] VITALS: BMI 31.5
[2017-08-02] MEDS: HYDROcodone/APAP 5-325MG 1 EACH TAB PO PRN (12:54)
--- NOTE | 2017-08-02 14:13 | P.PN ---
Subjective Progress Note Date: 08/01/17 Progress note being dictated for Dr. Daily. Interval history: This is an 81-year-old gentleman admitted with multiple medical issues, initially admitted with left lower limb cellulitis.Doppler of the left lower extremity reported DVT, patient was already on xarelto which is being held because of her dark stools. Initially received IV fluids. GI, infectious disease, Oncology/Hematology,nephrology, cardiology, evaluated the patient. CT abdomen reported right renal mass on the ultrasound of the abdomen and bladder, suggestive of progressive malignancy; renal mass has enlarged significantly compared to 10/04, developed new adenopathy, possible metastatic lesions to liver , Family requested biopsy; Underwent FNA biopsy of kidney with pathology pending. Antibiotics as per infectious disease. Received multiple units packed RBCs. Hemoglobin currently 8.0. Normal EF. Significant clinical improvement of cellulitis. Urine culture pending, final results to Dr. Guerrero and Dr. Godinez Patient's son is his caregiver and POA. As per the family patient is being followed with his primary care physician and oncology for renal mass for the past few years;increasing in size recently. Patient also had history of DVT and gastric ulcers. Anticoagulation remains on hold due to hemoglobin drop and possible GI bleed. Prognosis is poor with metastatic lesions. Poor prognosis conveyed to the family. Dr. Spears discussed with son that patient would need IVC filter placement if they pursue active treatment. 08/01/17 no acute overnight events. Urine culture pending. Maintained on antibiotics/Wound Care as per ID. status post right renal mass biopsy, reporting mass appears to be necrotic, pathology pending. Filter placement being discussed. Son requesting hospice informational meeting at [facility], will discuss further with Sister and start making arrangements for patient to possibly go to hospice house, or maintain comfort care at [facility], as he does not have enough help at home. Objective - Vital Signs Vital signs: Vital Signs Temp 99.3 F 08/02/17 07:00 Pulse 80 08/02/17 11:18 Resp 18 08/02/17 08:00 BP 109/75 08/02/17 07:00 Pulse Ox 96 08/02/17 07:00 Intake & Output 08/01/17 08/02/17 08/02/17 18:59 06:59 18:59 Intake Total 250 730 Output Total 1400 375 Balance 250 -670 -375 Weight 108.5 kg Intake: IV 250 250 Vancomycin 1,250 mg In 250 250 Sodium Chloride 0.9% 250 ml @ 125 mls/hr IVPB Q16H [facility] Rx#:[id number] Oral 480 Output: Urine 1400 375 Uretheral (Thomason) 1400 375 Other: Voiding Method Indwelling Catheter Indwelling Catheter Indwelling Catheter # Voids 1 - Exam PHYSICAL EXAM: VITAL SIGNS: [Temperature 90.8 degrees oral, pulse 89, Mr. 18, blood pressure 120/58, O2 sat 94% on room air] GENERAL: Sitting up in bed, no acute distress with carbon cutter at bedside HEENT: Conjunctivae normal. eyes normal. No conjunctival pallor. Oral mucosa moist NECK: No JVD. No thyroid enlargement. No LNs CARDIOVASCULAR: S1, S2 muffled. No murmur RESPIRATION: Breath sounds diminished in the bases. Scattered rhonchi , no crackles. No bronchial breathing. No wheezing ABDOMEN: Soft, nontender, No guarding. no masses palpable.Bowel sounds heard. LEGS: No edema. no swelling PSYCHIATRY: Alert and oriented -3, mood and affect normal. NERVOUS SYSTEM: Cranial N 2-12 grossly normal. Moves all 4 limbs. Diffuse weakness No focal deficits. No sensory deficit. 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 #2 left lower extremity ruptured bullae with cellulitis. Possible sepsis from that and the patient will be is on IV vancomycin and ceftriaxone. #3 right lower lobe pneumonia for which patient is on Rocephin #4 COPD with acute exacerbation. On admission improved now #5 anemia, chronic and macrocytic, patient does have acute GI bleed. Chronic anemia Possible due to malignancy. Status post multiple units PRBC transfusion #6 hypertension: Patient was hypotensive due to intravascular depletion or sepsis. #7 acute renal dysfunction most probably prerenal Azotemia , improved now #8 possible upper GI bleed no dark stools today continue with Protonix , GI evaluated the patient. #9 DVT of the left femoral vein: Patient's anticoagulation is on hold because of recurrent GI bleed, Filter placement being discussed #10 atrial fibrillation presently on rate controlled continuous 50 twice a day of metoprolol #11 renal mass, right sided biopsy complex renal mass, results pending. Plan: Continue on current medication regime ,monitoring. Updated son on phone, regarding plan of care. Filter placement being discussed between Dr. Daily, Oncology and vascular services. Discharged to [facility] placed on hold. The impression and plan of care has been dictated as directed. : I performed a history and examination of this patient, discussed the same with the dictator. I agree with the dictator's note ,documented as a scribe. Any additional findings or plans will be noted.
--- NOTE | 2017-08-02 15:18 | CONS ---
CONSULTATION This is an 81-year-old gentleman originally from [place]. Patient has been admitted with multiple medical problems. He has some wound on his left lower extremity after a blister formation. He also has a history of DVT of the left femoral vein and also they found some mass in the right kidney by ultrasound. Patient had some history of bleeding issues for that he came with a hemoglobin of 6.9. He did receive some blood transfusion. MEDICAL HISTORY: History of deep vein thrombosis, hypertension, prostate disorders. Patient was seen in his room. History cannot be obtained. I have reviewed the chart from Medical Service. PHYSICAL EXAMINATION: NECK: Supple. No bruit appreciated. CHEST: Clear to auscultation. ABDOMEN: Soft. Femoral pulses are palpable bilateral. Patient has no varicosities, no venous ulcer right lower extremity. IMPRESSION: Deep vein thrombosis of the right leg with history of mass in the right kidney, possible cancer. I was consulted for placement of the filter because of history of bleeding and the patient cannot be anticoagulated. I will discuss with Dr. Spears. If we agree, will place a filter. Will follow with you. MMODL / IJN: [id number] /
--- NOTE | 2017-08-02 15:56 | P.PN ---
Subjective Progress Note Date: 08/02/17 Progress note being dictated for Dr. Daily. Interval history: This is an 81-year-old gentleman admitted with multiple medical issues, initially admitted with left lower limb cellulitis.Doppler of the left lower extremity reported DVT, patient was already on xarelto which is being held because of her dark stools. Initially received IV fluids. GI, infectious disease, Oncology/Hematology,nephrology, cardiology, evaluated the patient. CT abdomen reported right renal mass on the ultrasound of the abdomen and bladder, suggestive of progressive malignancy; renal mass has enlarged significantly compared to 10/04, developed new adenopathy, possible metastatic lesions to liver , Family requested biopsy; Underwent FNA biopsy of kidney with pathology pending. Antibiotics as per infectious disease. Received multiple units packed RBCs. Hemoglobin currently 8.0. Normal EF. Significant clinical improvement of cellulitis. Urine culture pending, final results to Dr. Guerrero and Dr. Godinez Patient's son is his caregiver and POA. As per the family patient is being followed with his primary care physician and oncology for renal mass for the past few years;increasing in size recently. Patient also had history of DVT and gastric ulcers. Anticoagulation remains on hold due to hemoglobin drop and possible GI bleed. Prognosis is poor with metastatic lesions. Poor prognosis conveyed to the family. Dr. Spears discussed with son that patient would need IVC filter placement if they pursue active treatment. 08/01/17 no acute overnight events. Urine culture pending. Maintained on antibiotics/Wound Care as per ID. status post right renal mass biopsy, reporting mass appears to be necrotic, pathology pending. Filter placement being discussed. Son requesting hospice informational meeting at [facility], will discuss further with Sister and start making arrangements for patient to possibly go to hospice house, or maintain comfort care at [facility], as he does not have enough help at home. 08/02/2017 oncology requesting filter placement, vascular surgery notified. Consent to be obtained with procedure scheduled for tomorrow. T-max 99.3. Urine culture no growth at 18 hours. Objective - Vital Signs Vital signs: Vital Signs Temp 99.3 F 08/02/17 07:00 Pulse 80 08/02/17 11:18 Resp 18 08/02/17 08:00 BP 109/75 08/02/17 07:00 Pulse Ox 96 08/02/17 07:00 Intake & Output 08/01/17 08/02/17 08/02/17 18:59 06:59 18:59 Intake Total 250 730 Output Total 1400 375 Balance 250 -670 -375 Weight 108.5 kg Intake: IV 250 250 Vancomycin 1,250 mg In 250 250 Sodium Chloride 0.9% 250 ml @ 125 mls/hr IVPB Q16H [facility] Rx#:[id number] Oral 480 Output: Urine 1400 375 Uretheral (Thomason) 1400 375 Other: Voiding Method Indwelling Catheter Indwelling Catheter Indwelling Catheter # Voids 1 - Exam PHYSICAL EXAM: VITAL SIGNS: As above GENERAL: Sitting up in bed, smiling, no acute distress with rubber compounder formulator at bedside HEENT: Conjunctivae normal. eyes normal. No conjunctival pallor. Oral mucosa moist NECK: No JVD. No thyroid enlargement. No LNs CARDIOVASCULAR: S1, S2 muffled. No murmur RESPIRATION: Breath sounds diminished in the bases. Scattered rhonchi , no crackles. No wheezing ABDOMEN: Soft, nontender, No guarding. no masses palpable.Bowel sounds heard. LEGS: No edema. no swelling PSYCHIATRY: Alert and oriented -3, mood and affect normal. NERVOUS SYSTEM: Cranial N 2-12 grossly normal. Moves all 4 limbs. Diffuse weakness No focal deficits. No sensory deficit. 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 #2 left lower extremity ruptured bullae with cellulitis. Possible sepsis #3 right lower lobe pneumonia #4 COPD with acute exacerbation, improved. #5 anemia, chronic and macrocytic, patient does have acute GI bleed. Chronic anemia Possible due to malignancy. Status post multiple units PRBC transfusion #6 hypertension: Patient was hypotensive due to intravascular depletion or sepsis. #7 acute renal dysfunction most probably prerenal Azotemia , improved now #8 possible upper GI bleed no dark stools, GI evaluated the patient. #9 DVT of the left femoral vein: Patient's anticoagulation is on hold because of recurrent GI bleed, Filter placement pending #10 atrial fibrillation, controlled ventricular rate #11 renal mass, right sided biopsy complex renal mass, results pending. Plan: Continue on current medication regime ,monitoring. Filter placement tomorrow . Discharged to [facility] tomorrow after filter placement. The impression and plan of care has been dictated as directed. : I performed a history and examination of this patient, discussed the same with the dictator. I agree with the dictator's note ,documented as a scribe. Any additional findings or plans will be noted.
[2017-08-02] MEDS: SILVER sulfADIAZINE Cream 400 GM 1 APPLIC APPLIC TOPICAL SCH ×2 (16:33→20:29)
[2017-08-02] MEDS: cefTRIAXone IN SWFI 1,000 MG/10 ML SYRINGE IVP SCH (20:46)
[2017-08-03] MEDS ORDERED: VANCOMYCIN TROUGH DUE 1 EACH MISC MISCELLANE ONE (07:00)
[2017-08-03] MEDS: IPRATROPIUM-ALBUTEROL 3 ML NEB INHALATION SCH ×5 (07:09→19:24)
[2017-08-03 07:42] LABS: Basophils % (A) 1 %; CHCM 31.1; Eosinophils # (A) 0.3 k/uL (0-0.7); Eosinophils % (A) 5 %; HCT 26.6 % (39.0-53.0); Hypochromasia Moderate; Luc # (Auto) 0.23; Luc % (Auto) 4; Lymphocytes # (A) 0.7 k/uL (1.0-4.8); Lymphocytes % (A) 14 %; MCH 28.1 pg (25.0-35.0); MCV 93.7 fL (80.0-100.0); Monocytes # (A) 0.3 k/uL (0-1.0); Monocytes % (A) 6 %; Neutrophils # (A) 3.8 k/uL (1.3-7.7); Neutrophils % (A) 71 %; RBC 2.84 m/uL (4.30-5.90); RDW 14.8 % (11.5-15.5); WBC 5.4 k/uL (3.8-10.6); WBC (Perox) 5.31
[2017-08-03 07:49] LABS: Anion Gap 5 mmol/L; Blood Urea Nitrogen 16 mg/dL (9-20); Calcium 7.8 mg/dL (8.4-10.2); Carbon Dioxide 24 mmol/L (22-30); Chloride 107 mmol/L (98-107); Glucose 97 mg/dL (74-99); Non-African American GFR(MDRD) >60 (>60 ml/min/1.73 sqM); Potassium 4.2 mmol/L (3.5-5.1); Sodium 136 mmol/L (137-145)
[2017-08-03] MEDS: VANCOMYCIN 1,250 MG in SODIUM CHLORIDE 0.9% 250 ML IVPB SCH ×2 (09:21→23:59)
[2017-08-03] MEDS: PANTOPRAZOLE 40 MG TABLET PO SCH ×2 (09:21→17:54)
[2017-08-03] MEDS: SILVER sulfADIAZINE Cream 400 GM 1 APPLIC APPLIC TOPICAL SCH ×2 (09:22→20:28)
[2017-08-03] MEDS: METOPROLOL TARTRATE 50 MG TAB PO SCH ×3 (09:22→23:55)
[2017-08-03] MEDS: TAMSULOSIN 0.4 MG CAP.ER.24H PO SCH (09:22)
[2017-08-03] MEDS: NYSTATIN 100,000 UNIT/ML SUSP 500,000 UNIT/5 ML CUP PO SCH ×4 (09:22→23:59)
--- NOTE | 2017-08-03 12:16 | P.DS ---
Providers Date of admission: 07/19/17 11:58 Expected date of discharge: 08/03/17 Attending physician: Stanford Daily Consults: 07/19/17 13:20 Consult Physician Stat Consulting Provider: Renetta Hallman Consult Reason/Comments: ARF Do you want consulting provider notified?: Yes 07/19/17 14:07 Consult Physician Stat Consulting Provider: Gerald Godinez Consult Reason/Comments: (L) LEG WOUND Do you want consulting provider notified?: Yes 07/19/17 18:53 Consult Physician Routine Consulting Provider: Alvaro Garcia Consult Reason/Comments: renal mass, renal cysts, hematuria, enlarged prostate Do you want consulting provider notified?: Yes, Notify in am 07/20/17 11:29 Consult Physician Routine Consulting Provider: Jose Spears Consult Reason/Comments: poss failed xarelto,femoral blood clot Do you want consulting provider notified?: Yes 07/22/17 11:32 Consult Physician Routine Consulting Provider: Domingo Lester Consult Reason/Comments: atrial fib Do you want consulting provider notified?: Yes Primary care physician: Armando Duenasvi at [facility] Hospital Course: Final Diagnoses: #1 right comlex renal mass 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 #2 left lower extremity ruptured bullae with cellulitis. Possible sepsis. #3 right lower lobe pneumonia. #4 COPD with acute exacerbation. On admission improved now #5 anemia, chronic and macrocytic, patient does have acute GI bleed. Chronic anemia Possible due to malignancy. Status post multiple units PRBC transfusion #6 hypertension: Patient was hypotensive due to intravascular depletion or sepsis,improved. #7 acute renal dysfunction most probably prerenal Azotemia , improved now #8 possible upper GI bleed no dark stools today continue with Protonix , GI evaluated the patient. #9 DVT of the left femoral vein: Patient's anticoagulation is on hold because of recurrent GI bleed, IVC Filter placement #10 atrial fibrillation presently on rate controlled Hospital course: This is an 81-year-old gentleman admitted with multiple medical issues, initially admitted with left lower limb cellulitis.Doppler of the left lower extremity reported DVT, patient was already on xarelto which is being held because of her dark stools. Initially received IV fluids. GI, infectious disease, Oncology/Hematology,nephrology, cardiology, evaluated the patient. CT abdomen reported right renal mass on the ultrasound of the abdomen and bladder, suggestive of progressive malignancy; renal mass has enlarged significantly compared to 10/04, developed new adenopathy, possible metastatic lesions to liver, Family requested biopsy;Status post right renal mass biopsy, reporting mass appears to be necrotic, pathology pending. Antibiotics as per infectious disease. Received multiple units packed RBCs. Normal EF. Significant clinical improvement of cellulitis. Patient will be continued on oral antibiotics/Wound Care as per ID and follow renal function. Follow-up H&H. Patient's son is his caregiver and POA. As per the family patient is being followed with his primary care physician and oncology for renal mass for the past few years;increasing in size recently. Patient also had history of DVT and gastric ulcers. Anticoagulation remains on hold due to hemoglobin drop and possible GI bleed. Prognosis is poor with metastatic lesions. Poor prognosis conveyed to the family. Dr. Spears discussed with son that patient would need IVC filter placement if they pursue active treatment. Scheduled for IVC filter placement today, then will be discharged to [facility]. Son requesting hospice informational meeting at [facility], will discuss further with Sister and start making arrangements for patient to possibly go to hospice house, or maintain comfort care at [facility], as he does not have enough help at home.Patient has been cleared by all consults for discharge. Patient is being discharged to [facility] in a stable condition with guarded prognosis. The impression and plan of care has been dictated as directed. : I performed a history and examination of this patient, discussed the same with the dictator. I agree with the dictator's note ,documented as a scribe. Any additional findings or plans will be noted. Patient Condition at Discharge: Stable Plan - Discharge Summary Discharge Rx Participant: Yes New Discharge Prescriptions: New Acetaminophen Tab [Tylenol] 650 mg PO Q4HR PRN tab PRN Reason: Fever and/ or Mild Pain HYDROcodone/APAP 5-325MG [Tarkio 5-325] 1 each PO Q4HR PRN #20 tab PRN Reason: Moderate Pain Ipratropium-Albuterol Nebulize [Duoneb 0.5 mg-3 mg/3 ml Soln] 3 ml INHALATION RT-QID ampul.neb Ipratropium-Albuterol Nebulize [Duoneb 0.5 mg-3 mg/3 ml Soln] 3 ml INHALATION Q4H PRN ampul.neb PRN Reason: Shortness Of Breath Or Wheezing Metoprolol Tartrate [Lopressor] 50 mg PO TID tab Nystatin 100,000 Unit/ml Susp [Mycostatin Oral Susp] 500,000 unit PO QID cup Pantoprazole [Protonix] 40 mg PO AC-BID tablet. SILVER sulfADIAZINE Cream [Silvadene 1% Cream] 1 applic TOPICAL BID applic Cephalexin [Keflex] 500 mg PO Q8HR #21 cap Continue Tamsulosin HCl [Flomax] 0.4 mg PO QAM Discontinued Losartan Potassium [Cozaar] 50 mg PO QAM Rivaroxaban [Xarelto] 20 mg PO W/SUPPER Diclofenac Sodium [Voltaren] 75 mg PO DAILY PRN PRN Reason: Pain Carvedilol [Coreg] 25 mg PO BID Discharge Medication List Tamsulosin HCl [Flomax] 0.4 mg PO QAM 08/01/15 [History] Acetaminophen Tab [Tylenol] 650 mg PO Q4HR PRN tab 08/01/17 [Rx] Cephalexin [Keflex] 500 mg PO Q8HR #21 cap 08/01/17 [Rx] HYDROcodone/APAP 5-325MG [Tarkio 5-325] 1 each PO Q4HR PRN #20 tab 08/01/17 [Rx] Ipratropium-Albuterol Nebulize [Duoneb 0.5 mg-3 mg/3 ml Soln] 3 ml INHALATION Q4H PRN ampul.neb 08/01/17 [Rx] Ipratropium-Albuterol Nebulize [Duoneb 0.5 mg-3 mg/3 ml Soln] 3 ml INHALATION RT -QID ampul.neb 08/01/17 [Rx] Metoprolol Tartrate [Lopressor] 50 mg PO TID tab 08/01/17 [Rx] Nystatin 100,000 Unit/ml Susp [Mycostatin Oral Susp] 500,000 unit PO QID cup [Rx] Pantoprazole [Protonix] 40 mg PO AC-BID tablet. 08/01/17 [Rx] SILVER sulfADIAZINE Cream [Silvadene 1% Cream] 1 applic TOPICAL BID applic 11/ 14/17 [Rx] Follow up Appointment(s)/Referral(s): Armando Javier MD [Primary Care Provider] - 1 Week (After discharge from ECF) Jsoe Spears MD [STAFF PHYSICIAN] - 1 Week Masoud Guerrero MD [STAFF PHYSICIAN] - 1 Week Activity/Diet/Wound Care/Special Instructions: xarelto on hold. Final urine culture results to Dr. Guerrero, Dr. Godinez Hospice Informational meeting to be arranged at [facility], as requested by son vivi,mani in 1 week Thomason Catheter changed at [facility] on 07/31/2017-Retention Wound care left leg-Aparnae, Dkx, ozzie wrap twice daily Discharge Disposition: TRANSFER TO SNF/ECF
[2017-08-03] MEDS ORDERED: LIDOCAINE 2% INJ 20 MG/ML SQ ONE (14:26)
[2017-08-03] MEDS ORDERED: SODIUM CHLORIDE 0.9% 500 ML IV ONE (14:35)
[2017-08-03] MEDS ORDERED: IODIXANOL 320 MG/ML 100 ML INTRAARTER ONE (14:37)
--- NOTE | 2017-08-03 15:53 | P.PN ---
Progress Note - Text Progress Note Date: 08/03/17 Progress noted. 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 I do not feel that any urologic treatment is warranted at this time. However, please notify me if I can be of any assistance in his management.
--- NOTE | 2017-08-03 16:14 | P.PN ---
Subjective Progress Note Date: 08/02/17 the patient remains clinically stable. There has been no recurrence of bleeding, and hemoglobin has been unchanged. He denies any significant pain. Left lower extremity continues to improve slowly. Objective - Vital Signs Vital signs: Vital Signs Temp 98.2 F 08/03/17 15:00 Pulse 77 08/03/17 15:00 Resp 18 08/03/17 15:00 BP 149/68 08/03/17 15:00 Pulse Ox 97 08/03/17 15:00 Intake & Output 08/02/17 08/03/17 08/03/17 18:59 06:59 18:59 Intake Total 1250 710 25 Output Total 750 900 Balance 500 -190 25 Weight 108.5 kg Intake: IV 25 Intake, IV Titration 250 Amount Vancomycin 1,250 mg In 250 Sodium Chloride 0.9% 250 ml @ 125 mls/hr IVPB Q16H [facility] Rx#:[id number] Oral 1000 710 Output: Urine 750 900 Uretheral (Thomason) 750 900 Other: Voiding Method Indwelling Catheter Indwelling Catheter Indwelling Catheter # Voids 4 - Constitutional General appearance: Present: no acute distress - EENT Eyes: Present: PERRLA ENT: Present: hearing grossly normal, normal oropharynx - Respiratory Respiratory: bilateral: CTA - Cardiovascular Rhythm: regular Heart sounds: normal: S1, S2 - Gastrointestinal General gastrointestinal: Present: normal bowel sounds, soft - Neurologic Neurologic: Present: CNII-XII intact - Musculoskeletal Musculoskeletal: Present: generalized weakness, strength equal bilaterally - Psychiatric Psychiatric: Present: A&O x's 3, appropriate affect - Labs CBC & Chem 7: 08/03/17 06:49 08/03/17 06:49 Labs: Abnormal Lab Results - Last 24 Hours (Table) 08/03/17 08/03/17 Range/Units 06:49 06:49 RBC 2.84 L (4.30-5.90) m/uL Hgb 8.0 L (13.0-17.5) gm/dL Hct 26.6 L (39.0-53.0) % MCHC 30.0 L (31.0-37.0) g/dL Lymphocytes # 0.7 L (1.0-4.8) k/uL Sodium 136 L (137-145) mmol/L Calcium 7.8 L (8.4-10.2) mg/dL Microbiology - Last 24 Hours (Table) 07/31/17 18:20 Urine Culture - Final Urine,Catheterized Lyssa albicans Assessment and Plan (1) Anemia Narrative/Plan: hemoglobin has been stable in the low 8 range, with no evidence of recurrent bleeding Current Visit: Yes Status: Acute Code(s): D64.9 - ANEMIA, UNSPECIFIED SNOMED Code(s): 271508466 (2) Deep vein thrombosis of left lower extremity Narrative/Plan: Case was discussed extensively with the internal medicine service. The patient is not felt to be a candidate for anticoagulation, as 2 attempts in the past several resulted in evidence of GI bleed. Given recent symptomatic clot, as well as evidence of metastatic malignancy, the patient is felt to be at high risk of progression and development of PE. The patient and his family do want to pursue diagnosis and potentially treatment. Based on the above, and careful estimation of risk benefit, it was therefore recommended that the patient have an IVC filter placed. Vascular surgery has been consulted. The rationale behind the placement of the filter was discussed with the patient with the aid of his supervisor pipe manufacture. He expressed understanding and seemed agreeable. Current Visit: Yes Status: Acute Code(s): I82.402 - ACUTE EMBOLISM AND THOMBOS UNSP DEEP VEINS OF L LOW EXTREM SNOMED Code(s): 628797141 (3) Right renal mass Narrative/Plan: The patient had a FNA, that was negative. However the mass was quite necrotic and it was felt that the sample was inadequate. It was again discussed with the patient, through the aid of the supervisor pipe manufacture, that we still have a strong suspicion for malignancy. In this situation the negative biopsy would be considered nondiagnostic. For treatment purposes however I diagnosis does need to be established. We would therefore need to have another procedure. This can be planned in the outpatient setting, potentially at a tertiary center. The patient again expressed understanding, through his supervisor pipe manufacture. He indicated that he wanted me to discuss the above with his son. I did call the son and the available number, but there was no reply, and voice mailbox was not set up Current Visit: Yes Status: Acute Code(s): N28.89 - OTHER SPECIFIED DISORDERS OF KIDNEY AND URETER SNOMED Code(s): 098106326
[2017-08-03] MEDS: cefTRIAXone IN SWFI 1,000 MG/10 ML SYRINGE IVP SCH (20:28)
--- NOTE | 2017-08-03 21:14 | P.PN ---
Subjective Progress Note Date: 08/03/17 Principal diagnosis: left leg pain 81-year-old male resents the emergency center with complaints of wound into his left leg. The patient speaks Polish, if further information is coming from the chart at this time. As I enter the room the patient needs to urinate. He is given a urinal and probably urinates all over the floor and missed the urinal almost completely. To the patient's limited Chinese he relates that he does have pain in the left leg. Patient does relate to pain to the left leg. Improved with the silvadene and wrap. Tolerating oral antimicrobial therapy without difficulty. Feels better today. but had gastrointestinal bleed. He had received a blood transfusion. No more active bleeding is been noted He has been seen by the urologist for the renal mass. Computed tomography scan is performed which relates to an enlarging lesion highly consistent with metastatic renal cell carcinoma. Biopsy was performed but was nondiagnostic. However this has not changed the high likelihood of the metastatic renal cancer. Consideration for tertiary center outpatient evaluation is again discussed in being considered by the family. The acute renal failure has improved. Overall the patient is improving. Still has the swelling and discomfort in the left leg. Deep venous thrombosis was noted in that limb. Due to his inability to have anticoagulation a Rina filter is being placed today. Objective - Vital Signs Vital signs: Vital Signs Temp 98.2 F 08/03/17 15:00 Pulse 77 08/03/17 15:00 Resp 18 08/03/17 15:00 BP 149/68 08/03/17 15:00 Pulse Ox 97 08/03/17 15:00 Intake & Output 08/03/17 08/03/17 08/04/17 06:59 18:59 06:59 Intake Total 710 475 Output Total 900 Balance -190 475 Intake: IV 275 Vancomycin 1,250 mg In 250 Sodium Chloride 0.9% 250 ml @ 125 mls/hr IVPB Q16H [facility] Rx#:[id number] Oral 710 200 Output: Urine 900 Uretheral (Thomason) 900 Other: Voiding Method Indwelling Catheter Indwelling Catheter - Labs CBC & Chem 7: 08/03/17 06:49 08/03/17 06:49 Labs: Abnormal Lab Results - Last 24 Hours (Table) 08/03/17 08/03/17 Range/Units 06:49 06:49 RBC 2.84 L (4.30-5.90) m/uL Hgb 8.0 L (13.0-17.5) gm/dL Hct 26.6 L (39.0-53.0) % MCHC 30.0 L (31.0-37.0) g/dL Lymphocytes # 0.7 L (1.0-4.8) k/uL Sodium 136 L (137-145) mmol/L Calcium 7.8 L (8.4-10.2) mg/dL Microbiology - Last 24 Hours (Table) 07/31/17 18:20 Urine Culture - Final Urine,Catheterized Lyssa albicans Assessment and Plan (1) Left leg cellulitis Current Visit: Yes Status: Acute Code(s): L03.116 - CELLULITIS OF LEFT LOWER LIMB SNOMED Code(s): 329532725 (2) Acute renal failure Current Visit: Yes Status: Acute Code(s): N17.9 - ACUTE KIDNEY FAILURE, UNSPECIFIED SNOMED Code(s): 78337194 (3) Right renal mass Current Visit: Yes Status: Acute Code(s): N28.89 - OTHER SPECIFIED DISORDERS OF KIDNEY AND URETER SNOMED Code(s): 789145115
[2017-08-04 07:25] VITALS: BP 134/66; PULSE 91; RESP 20; TEMP 98.3
[2017-08-04] MEDS: IPRATROPIUM-ALBUTEROL 3 ML NEB INHALATION SCH ×3 (07:39→15:49)
--- NOTE | 2017-08-04 08:03 | IR ---
EXAMINATION TYPE: IR IVC filter placement DATE OF EXAM: 08/03/2017 COMPARISON: CT 07/24/2017 HISTORY: Deep venous thrombosis, counterindication to anticoagulation therapy FINDINGS: Maximal barrier technique was utilized. After informed consent, the skin overlying the right groin w as prepped and draped in a sterile fashion and Lidocaine used for local anesthesia. A skin christiano was made with a scalpel. Standard retrograde venotomy was performed in the common femoral vein using sta ndard Seldinger technique with a 19-gauge needle under direct ultrasound guidance. The right common femoral vein was noted to be compressible and patent by ultrasound, and ultrasound images obtained an d submitted on patient's chart. A 0.035 inch wire was advanced centrally and subsequently the trap e ase sheath was advanced over the wire into the region of the confluence of the iliac veins. Digital subtraction inferior venacavography was performed. Based on the findings the filter was deployed in the infrarenal location. Spot image obtained verified placement. Sheath was withdrawn and hemostasi s achieved. There is no immediate complication; the patient is discharged in stable condition. Findings: No filling defect to suggest thrombus. 1.3 minutes fluoroscopy time, 214 intraoperative C-arm images IMPRESSION: STATUS POST INFRARENAL INFERIOR VENA CAVA FILTER PLACEMENT. THIS PROCEDURE WAS PERFORMED BY THE ALEJANDRO FERNANDO.
[2017-08-04 08:09] LABS: Anion Gap 5 mmol/L; Blood Urea Nitrogen 15 mg/dL (9-20); Calcium 7.7 mg/dL (8.4-10.2); Carbon Dioxide 25 mmol/L (22-30); Chloride 107 mmol/L (98-107); Glucose 85 mg/dL (74-99); Non-African American GFR(MDRD) >60 (>60 ml/min/1.73 sqM); Sodium 137 mmol/L (137-145)
[2017-08-04] MEDS: PANTOPRAZOLE 40 MG TABLET PO SCH ×2 (08:41→16:20)
[2017-08-04] MEDS: SILVER sulfADIAZINE Cream 400 GM 1 APPLIC APPLIC TOPICAL SCH (08:41)
[2017-08-04] MEDS: NYSTATIN 100,000 UNIT/ML SUSP 500,000 UNIT/5 ML CUP PO SCH ×3 (08:41→16:20)
[2017-08-04] MEDS: TAMSULOSIN 0.4 MG CAP.ER.24H PO SCH (08:41)
[2017-08-04] MEDS: METOPROLOL TARTRATE 50 MG TAB PO SCH ×2 (08:41→16:20)
[2017-08-04] MEDS: ACETAMINOPHEN TAB 325 MG TAB PO PRN (12:59)
--- NOTE | 2017-08-04 13:54 | P.PN ---
Subjective Progress Note Date: 08/03/17 Progress note being dictated for Dr. Daily. Interval history: This is an 81-year-old gentleman admitted with multiple medical issues, initially admitted with left lower limb cellulitis.Doppler of the left lower extremity reported DVT, patient was already on xarelto which is being held because of her dark stools. Initially received IV fluids. GI, infectious disease, Oncology/Hematology,nephrology, cardiology, evaluated the patient. CT abdomen reported right renal mass on the ultrasound of the abdomen and bladder, suggestive of progressive malignancy; renal mass has enlarged significantly compared to 10/04, developed new adenopathy, possible metastatic lesions to liver , Family requested biopsy; Underwent FNA biopsy of kidney with pathology pending. Antibiotics as per infectious disease. Received multiple units packed RBCs. Hemoglobin currently 8.0. Normal EF. Significant clinical improvement of cellulitis. Urine culture pending, final results to Dr. Guerrero and Dr. Godinez Patient's son is his caregiver and POA. As per the family patient is being followed with his primary care physician and oncology for renal mass for the past few years;increasing in size recently. Patient also had history of DVT and gastric ulcers. Anticoagulation remains on hold due to hemoglobin drop and possible GI bleed. Prognosis is poor with metastatic lesions. Poor prognosis conveyed to the family. Dr. Spears discussed with son that patient would need IVC filter placement if they pursue active treatment. 08/01/17 no acute overnight events. Urine culture pending. Maintained on antibiotics/Wound Care as per ID. status post right renal mass biopsy, reporting mass appears to be necrotic, pathology pending. Filter placement being discussed. Son requesting hospice informational meeting at [facility], will discuss further with Sister and start making arrangements for patient to possibly go to hospice house, or maintain comfort care at [facility], as he does not have enough help at home. 08/02/2017 oncology requesting filter placement, vascular surgery notified. Consent to be obtained with procedure scheduled for tomorrow. T-max 99.3. Urine culture no growth at 18 hours. 08/03/2017 scheduled for IVC filter today with discharged to ECF post procedure. Pathology reporting: KIDNEY, RIGHT, FINE NEEDLE ASPIRATE: PRIMARLY BLOOD WITH SCATTERED INFLAMMATORY CELLS INCLUDING MACROPHAGES AND RARE DISTORTED NON-CLASSIFIABLE CELLS. SPECIMEN IS NON-DIAGNOSTIC/UNSATISFACTORY FOR EVALUATION. Objective - Vital Signs Vital signs: Vital Signs Temp 98.3 F 08/04/17 07:00 Pulse 91 08/04/17 07:00 Resp 20 08/04/17 08:00 BP 134/66 08/04/17 07:00 Pulse Ox 96 08/04/17 07:00 Intake & Output 08/03/17 08/04/17 08/04/17 18:59 06:59 18:59 Intake Total 475 1550 Output Total 700 Balance 475 850 Intake: IV 275 250 Vancomycin 1,250 mg In 250 250 Sodium Chloride 0.9% 250 ml @ 125 mls/hr IVPB Q16H [facility] Rx#:[id number] Oral 200 1300 Output: Urine 700 Uretheral (Thomason) 700 Other: Voiding Method Indwelling Catheter Indwelling Catheter Indwelling Catheter - Exam PHYSICAL EXAM: VITAL SIGNS: Temperature 98.2, pulse 77, respiratory rate 18, blood pressure 149 /68, O2 sat 97% on room air GENERAL: Sitting up in bed, smiling, no acute distress HEENT: Conjunctivae normal. eyes normal. No conjunctival pallor. Oral mucosa moist NECK: No JVD. No thyroid enlargement. No LNs CARDIOVASCULAR: S1, S2 muffled. No murmur RESPIRATION: Breath sounds diminished in the bases. no rhonchi , no crackles. No wheezing ABDOMEN: Soft, nontender, No guarding. no masses palpable.Bowel sounds heard. LEGS: No edema. no swelling; dressing clean dry and intact PSYCHIATRY: Alert and oriented -3, mood and affect normal. NERVOUS SYSTEM: Cranial N 2-12 grossly normal. Moves all 4 limbs. Diffuse weakness No focal deficits. No sensory deficit. 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 Possible sepsis #3 right lower lobe pneumonia #4 COPD with acute exacerbation, improved. #5 anemia, chronic and macrocytic, patient does have acute GI bleed. Chronic anemia Possible due to malignancy. Status post multiple units PRBC transfusion #6 hypertension: Patient was hypotensive due to intravascular depletion or sepsis. #7 acute renal dysfunction most probably prerenal Azotemia , improved now #8 possible upper GI bleed no dark stools, GI evaluated the patient. #9 DVT of the left femoral vein: Patient's anticoagulation is on hold because of recurrent GI bleed, Filter placement pending #10 atrial fibrillation, controlled ventricular rate #11 renal mass, right sided biopsy complex renal mass, results pending. Plan: Continue on current medication regime ,monitoring. Filter placement tomorrow . Discharged to [facility] tomorrow after filter placement. The impression and plan of care has been dictated as directed. : I performed a history and examination of this patient, discussed the same with the dictator. I agree with the dictator's note ,documented as a scribe. Any additional findings or plans will be noted.
[2017-08-04] MEDS: VANCOMYCIN 1,250 MG in SODIUM CHLORIDE 0.9% 250 ML IVPB SCH (16:20)
== END 2017-08-04 16:41 | disposition home health service (06) | DRG 853 ==
LOC: EC 09:44 → 6SEL 11:58 → 5ONC 07-28 15:11
PROVIDERS: ADMIT Hospitalist; ATTEND Hospitalist
PROC: 30233N1 Transfusion of Nonautologous Red Blood Cells into Peripheral Vein, Percutaneous Approach (ICD-10-PCS; 2017-08-03)
PROC: 06H03DZ Insertion of Intraluminal Device into Inferior Vena Cava, Percutaneous Approach (ICD-10-PCS; principal; 2017-08-04)
DX: A41.9 Sepsis, unspecified organism (principal); J18.9 Pneumonia, unspecified organism; N17.0 Acute kidney failure with tubular necrosis; C78.7 Secondary malignant neoplasm of liver and intrahepatic bile duct; J44.0 Chronic obstructive pulmonary disease with (acute) lower respiratory infection; E87.2 Acidosis; I82.412 Acute embolism and thrombosis of left femoral vein; D68.59 Other primary thrombophilia; K92.2 Gastrointestinal hemorrhage, unspecified; C64.1 Malignant neoplasm of right kidney, except renal pelvis; I48.1 Persistent atrial fibrillation; J44.1 Chronic obstructive pulmonary disease with (acute) exacerbation; L03.115 Cellulitis of right lower limb; L03.116 Cellulitis of left lower limb; E87.5 Hyperkalemia; E86.9 Volume depletion, unspecified; I48.2 Chronic atrial fibrillation; I12.9 Hypertensive chronic kidney disease with stage 1 through stage 4 chronic kidney disease, or unspecified chronic kidney disease; I08.3 Combined rheumatic disorders of mitral, aortic and tricuspid valves; D63.0 Anemia in neoplastic disease; D75.89 Other specified diseases of blood and blood-forming organs; E87.6 Hypokalemia; N18.9 Chronic kidney disease, unspecified; N28.1 Cyst of kidney, acquired; N40.1 Benign prostatic hyperplasia with lower urinary tract symptoms; R33.8 Other retention of urine; T46.4X5A Adverse effect of angiotensin-converting-enzyme inhibitors, initial encounter; Z79.01 Long term (current) use of anticoagulants; Z79.899 Other long term (current) drug therapy; Z86.718 Personal history of other venous thrombosis and embolism; Z87.11 Personal history of peptic ulcer disease; Z87.442 Personal history of urinary calculi; Z87.891 Personal history of nicotine dependence; Z88.6 Allergy status to analgesic agent; Z91.040 Latex allergy status; Z88.1 Allergy status to other antibiotic agents
CPT/HCPCS: 36415; 37191; 71010; 71020; 74177; 76770; 77012; 80048; 80053; 80202; 81001; 82272; 82570; 82607; 82728; 82747; 83010; 83540; 83550; 83735; 83880; 83883; 83921; 84132; 84165; 84300; 85025; 85027; 85045; 85610; 85652; 85730; 86334; 86850; 86900; 86901; 86920; 87040; 87070; 87086; 87205; 88173; 88305; 93005; 93306; 94640; 94760; 96365; 96375; 99284

== ENCOUNTER 2017-11-06 04:59 | Emergency (ER) | payer MEDICARE ==
[2017-11-06] MEDS ORDERED: MORPHINE SULFATE 4 MG/ML SYRINGE IV STA (05:26)
[2017-11-06] MEDS ORDERED: ONDANSETRON 4 MG/2 ML VIAL IVP STA (05:41)
[2017-11-06 05:47] VITALS: RESP 18
[2017-11-06 05:49] LABS: Basophils % (A) 0 %; Eosinophils % (A) 0 %; HCT 28.7 % (39.0-53.0); HGB 8.8 gm/dL (13.0-17.5); Hypochromasia Moderate; Lymphocytes # (A) 0.5 k/uL (1.0-4.8); Lymphocytes % (A) 7 %; MCH 27.2 pg (25.0-35.0); MCHC 30.5 g/dL (31.0-37.0); MCV 89.2 fL (80.0-100.0); Monocytes # (A) 0.3 k/uL (0-1.0); Monocytes % (A) 4 %; Neutrophils # (A) 5.9 k/uL (1.3-7.7); Neutrophils % (A) 88 %; Platelet Count 172 k/uL (150-450); RBC 3.22 m/uL (4.30-5.90); WBC 6.8 k/uL (3.8-10.6)
[2017-11-06 05:57] LABS: Amorphous Sediment,Urine Occasional /hpf; Mucus,Urine Occasional /hpf; RBC,Urine >182 /hpf (0-5); WBC,Urine >182 /hpf (0-5)
[2017-11-06 05:58] LABS: ALT 13 U/L (21-72); AST 27 U/L (17-59); Albumin 3.9 g/dL (3.5-5.0); Alkaline Phosphatase 80 U/L (38-126); Amylase 64 U/L (30-110); Anion Gap 13 mmol/L; Appearance,Urine Bloody (Clear); Blood Urea Nitrogen 29 mg/dL (9-20); Calcium 9.4 mg/dL (8.4-10.2); Carbon Dioxide 23 mmol/L (22-30); Chloride 105 mmol/L (98-107); Color,Urine Red; Glucose 142 mg/dL (74-99); Lipase 179 U/L (23-300); Potassium 4.9 mmol/L (3.5-5.1); Sodium 141 mmol/L (137-145); Total Bilirubin 0.8 mg/dL (0.2-1.3); Total Protein 7.5 g/dL (6.3-8.2)
--- NOTE | 2017-11-06 06:33 | CT ---
EXAM: CT Abdomen and Pelvis Without Intravenous Contrast CLINICAL HISTORY: ITS.REASON CT Reason: abdominal pain TECHNIQUE: Axial computed tomography images of the abdomen and pelvis without intravenous contrast. DLP is 415.6 mGy-cm. This CT exam was performed using one or more of the following dose reduction techniques: automated exposure control, adjustment of the mA and/or kV according to patient size, and/or use of iterative reconstruction technique. COMPARISON: CT dated 07/24/2017. FINDINGS: Artifacts: Motion degraded exam. Lower thorax: Unchanged 2.17 m solid pulmonary nodule in the lingula. ABDOMEN: Liver: Unremarkable. Gallbladder and bile ducts: Unremarkable. No calcified stones. No ductal dilation. Pancreas: Unremarkable. No ductal dilation. Spleen: Unremarkable. No splenomegaly. Adrenals: Unremarkable. No mass. Kidneys and ureters: Mild left renal atrophy. Multiple unchanged simple appearing left renal cysts. Reidentified inferior pole right renal mass that currently measures approximately 7.7 x 6.1 cm, previously 7.1 x 6.1 cm. There is slightly increased adjacent fat stranding and haziness that may represent local spread. Stomach and bowel: Just right of midline anterior abdominal wall hernia containing transverse colon without obstruction. This is new. No mucosal thickening. Appendix: No findings to suggest acute appendicitis. PELVIS: Bladder: Reidentified large 2.6 centimeter calcification layering within the bladder. There is also a questionable bladder mass measuring approximately 2.8 x 4.2 cm that is not well characterized on this exam. This could also be secondary to indentation from the enlarged prostate gland, which measures up to 6.5 cm. Reproductive: See above. ABDOMEN and PELVIS: Intraperitoneal space: Unremarkable. No free air. No significant fluid collection. Bones/joints: No acute fracture. Soft tissues: Bilateral fat-containing inguinal hernias. Vasculature: IVC filter in position. Right renal vein appears somewhat full as on the prior exam, possibly due to thrombus. No abdominal aortic aneurysm. Lymph nodes: Worsening retroperitoneal lymphadenopathy. Some lymph nodes are unchanged, a left periaortic lymph node is increased in size, currently measuring up to 2.5 cm (series 3 image 60), previously up to 1. 5 cm. Other lymph nodes are also likely enlarged but difficult to accurately characterize on this noncontrast exam. IMPRESSION: Interval enlargement of a right renal mass highly suspicious for renal cell carcinoma with interval worsening of retroperitoneal lymphadenopathy. The right renal vein appears newly prominent, possibly representing thrombus, but not well characterized on this noncontrast exam. Unchanged lingular solid pulmonary nodule suspicious for metastasis. New intra-abdominal wall hernia containing transverse colon without obstruction. Findings suspicious for large bladder mass along characterized on this noncontrast exam.
[2017-11-06 06:45] VITALS: BP 140/66; PULSE 100
[2017-11-06] MEDS ORDERED: cefTRIAXone IN SWFI 1,000 MG/10 ML SYRINGE IVP STA (06:56)
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
[2017-11-06 07:06] VITALS: TEMP 101
== END 2017-11-06 07:11 | disposition home or self-care (01) ==
LOC: EC 04:59
DX: N28.89 Other specified disorders of kidney and ureter (principal); R10.9 Unspecified abdominal pain; R11.2 Nausea with vomiting, unspecified; R31.9 Hematuria, unspecified; N42.9 Disorder of prostate, unspecified; Z87.891 Personal history of nicotine dependence; Z79.899 Other long term (current) drug therapy; Z88.1 Allergy status to other antibiotic agents; Z88.6 Allergy status to analgesic agent; Z91.040 Latex allergy status; Z98.890 Other specified postprocedural states
CPT/HCPCS: 36415; 80053; 82150; 83690; 85025; 81001; 87086; 87077; 87186; 74176; 99284; 96374; 96375 ×2; J2270; J2405; J0696

== ENCOUNTER → 2017-12-14 | Outpatient (CLI) | payer MEDICARE ==
[2017-12-14 10:48] LABS: HCT 26.9 % (39.0-53.0); HGB 8.3 gm/dL (13.0-17.5); Hypochromasia Marked; MCH 25.9 pg (25.0-35.0); MCHC 30.8 g/dL (31.0-37.0); MCV 84.4 fL (80.0-100.0); Mean Platelet Volume 6.5; Platelet Count 162 k/uL (150-450); RBC 3.19 m/uL (4.30-5.90); WBC 4.5 k/uL (3.8-10.6)
[2017-12-14 11:05] LABS: Albumin 3.6 g/dL (3.5-5.0); Calcium 9.1 mg/dL (8.4-10.2); Potassium 4.7 mmol/L (3.5-5.1); Total Bilirubin 0.8 mg/dL (0.2-1.3); Total Protein 7.3 g/dL (6.3-8.2)
[2017-12-14 11:34] LABS: Prostate Specific Antigen 7.35 ng/mL (0.00-4.00)
== END | disposition home or self-care (01) ==
LOC: LABWHC1 09:39
PROVIDERS: ATTEND Family Medicine
DX: I10 Essential (primary) hypertension (principal); N40.0 Benign prostatic hyperplasia without lower urinary tract symptoms; R73.01 Impaired fasting glucose; D64.9 Anemia, unspecified
CPT/HCPCS: 36415; 80053; 80061; 84153; 85027

== ENCOUNTER → 2018-03-13 | Outpatient (CLI) | payer MEDICARE ==
[2018-03-13 09:56] LABS: Anisocytosis Slight; HGB 7.5 gm/dL (13.0-17.5); Hypochromasia Marked; MCH 23.9 pg (25.0-35.0); MCV 79.6 fL (80.0-100.0); Mean Platelet Volume 7.9; Microcytosis Slight; Platelet Count 141 k/uL (150-450); Poikilocytosis Slight; RBC 3.14 m/uL (4.30-5.90); RDW 18.5 % (11.5-15.5); WBC 3.7 k/uL (3.8-10.6)
== END | disposition home or self-care (01) ==
LOC: LABWHC1 09:21
PROVIDERS: ATTEND Family Medicine
DX: I10 Essential (primary) hypertension (principal); D64.9 Anemia, unspecified; R73.01 Impaired fasting glucose
CPT/HCPCS: 36415; 85027

== ENCOUNTER → 2018-06-11 | Outpatient (CLI) | payer MEDICARE ==
[2018-06-11 10:40] LABS: Anisocytosis Slight; HCT 23.7 % (39.0-53.0); HGB 7.1 gm/dL (13.0-17.5); Hypochromasia Marked; MCH 23.8 pg (25.0-35.0); MCHC 30.1 g/dL (31.0-37.0); Mean Platelet Volume 6.6; Microcytosis Slight; Platelet Count 160 k/uL (150-450); Poikilocytosis Slight; RBC 3.01 m/uL (4.30-5.90); RDW 18.2 % (11.5-15.5); WBC 3.8 k/uL (3.8-10.6)
[2018-06-11 10:44] LABS: Albumin 3.7 g/dL (3.5-5.0); Calcium 8.7 mg/dL (8.4-10.2); Potassium 5.2 mmol/L (3.5-5.1); Total Bilirubin 0.7 mg/dL (0.2-1.3); Total Protein 7.5 g/dL (6.3-8.2)
== END | disposition home or self-care (01) ==
LOC: LABWHC1 09:09
PROVIDERS: ATTEND Family Medicine
DX: I10 Essential (primary) hypertension (principal); D64.9 Anemia, unspecified; R73.01 Impaired fasting glucose
CPT/HCPCS: 36415; 80053; 85027

== ENCOUNTER 2018-07-11 09:36 | Emergency (ER) | payer MEDICARE ==
[2018-07-11] MEDS ORDERED: SODIUM CHLORIDE 0.9% 500 ML 500 ML IV STA (10:24)
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
[2018-07-11 11:28] LABS: Anisocytosis Slight; Basophils % (A) 0 %; Eosinophils # (A) 0.1 k/uL (0-0.7); Eosinophils % (A) 1 %; HCT 26.9 % (39.0-53.0); Hypochromasia Marked; Lymphocytes # (A) 0.5 k/uL (1.0-4.8); Lymphocytes % (A) 10 %; MCH 22.7 pg (25.0-35.0); MCHC 29.6 g/dL (31.0-37.0); MCV 76.7 fL (80.0-100.0); Mean Platelet Volume 6.9; Microcytosis Slight; Monocytes # (A) 0.4 k/uL (0-1.0); Monocytes % (A) 7 %; Neutrophils % (A) 79 %; Platelet Count 166 k/uL (150-450); Poikilocytosis Slight; RDW 18.9 % (11.5-15.5)
--- NOTE | 2018-07-11 11:29 | XR ---
Abdomen HISTORY: Pain, diarrhea Frontal view of the abdomen on 2 images, correlation CT abdomen pelvis 11/06/2017 There is an inferior vena cava filter present overlying the L4 and L3 vertebral bodies. Lung nodule a gain noted in the lingula. There are overlying cardiac leads. No evident pneumoperitoneum or bowel ob struction. Degenerative disc changes are present in the visualized spine. Vascular calcifications pre sent within the pelvis. Oval density present in the right hemipelvis is again noted. IMPRESSION: Bladder calculus. Lung mass. Postprocedural changes.
[2018-07-11 11:40] LABS: Albumin 3.2 g/dL (3.5-5.0); Calcium 8.8 mg/dL (8.4-10.2); Potassium 4.4 mmol/L (3.5-5.1); Total Bilirubin 1.5 mg/dL (0.2-1.3); Total Protein 7.3 g/dL (6.3-8.2)
[2018-07-11] MEDS ORDERED: SODIUM CHLORIDE 0.9% 500 ML IV STA (11:57)
[2018-07-11 12:14] LABS: Appearance,Urine Turbid (Clear); Bacteria,Urine Many /hpf; Bilirubin,Urine Negative (Negative); Blood,Urine Moderate (Negative); Color,Urine Yellow; Glucose,Urine (UA) Negative (Negative); Ketones,Urine Trace (Negative); Leukocyte Esterase,Urine Large (Negative); Nitrite,Urine Positive (Negative); PH, Urine 5.5 (5.0-8.0); Protein,Urine 1+ (Negative); RBC,Urine 141 /hpf (0-5); Specific Gravity,Urine 1.015 (1.001-1.035); Squamous Epithelial Cell,Urine 2 /hpf (0-4); WBC,Urine >182 /hpf (0-5)
[2018-07-11 13:19] VITALS: BP 164/82; PULSE 69; RESP 14; TEMP 98.3
== END 2018-07-11 13:17 | disposition home or self-care (01) ==
LOC: EC 09:36
DX: N39.0 Urinary tract infection, site not specified (principal); E86.0 Dehydration; E87.2 Acidosis; R19.7 Diarrhea, unspecified; K21.9 Gastro-esophageal reflux disease without esophagitis; I10 Essential (primary) hypertension; N42.9 Disorder of prostate, unspecified; Z87.891 Personal history of nicotine dependence; Z79.899 Other long term (current) drug therapy; Z88.6 Allergy status to analgesic agent; Z88.1 Allergy status to other antibiotic agents; Z91.040 Latex allergy status
CPT/HCPCS: 36415; 74018; 80053; 81001; 83690; 85025; 87086; 93005; 99284

== ENCOUNTER 2018-07-13 20:37 | Emergency (ER) | payer MEDICARE ==
[2018-07-13 21:04] VITALS: TEMP 98.3
[2018-07-13 22:29] LABS: Anisocytosis Slight; Basophils % (A) 0 %; Eosinophils # (A) 0.2 k/uL (0-0.7); Eosinophils % (A) 4 %; HGB 7.8 gm/dL (13.0-17.5); Hypochromasia Marked; Lymphocytes # (A) 0.6 k/uL (1.0-4.8); Lymphocytes % (A) 10 %; MCH 23.2 pg (25.0-35.0); MCHC 30.1 g/dL (31.0-37.0); MCV 77.1 fL (80.0-100.0); Mean Platelet Volume 6.4; Microcytosis Slight; Monocytes # (A) 0.5 k/uL (0-1.0); Monocytes % (A) 8 %; Neutrophils # (A) 4.5 k/uL (1.3-7.7); Neutrophils % (A) 76 %; Platelet Count 167 k/uL (150-450); Poikilocytosis Slight; RBC 3.37 m/uL (4.30-5.90); RDW 18.7 % (11.5-15.5); WBC 5.9 k/uL (3.8-10.6)
[2018-07-13 22:30] LABS: Glucose,Whole Blood 102 mg/dL (75-99)
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
[2018-07-13 22:40] LABS: INR 1.4 (<1.2); Partial Thromboplastin Time 25.5 sec (22.0-30.0); Prothrombin Time 13.2 sec (9.0-12.0)
[2018-07-13 22:42] LABS: Albumin 3.2 g/dL (3.5-5.0); Calcium 8.5 mg/dL (8.4-10.2); Potassium 4.4 mmol/L (3.5-5.1); Total Bilirubin 1.4 mg/dL (0.2-1.3); Total Protein 7.3 g/dL (6.3-8.2)
[2018-07-13 22:52] LABS: Creatine Kinase 149 U/L (55-170)
[2018-07-13 23:06] LABS: Creatine Kinase MB 2.3 ng/mL (0.0-2.4); Troponin I <0.012 ng/mL (0.000-0.034)
[2018-07-13 23:31] LABS: Appearance,Urine Cloudy (Clear); Bilirubin,Urine Negative (Negative); Blood,Urine Moderate (Negative); Color,Urine Yellow; Glucose,Urine (UA) Negative (Negative); Hyphae Yeast, Urine Rare /hpf; Ketones,Urine Negative (Negative); Leukocyte Esterase,Urine Large (Negative); Mucus,Urine Rare /hpf; Nitrite,Urine Negative (Negative); PH, Urine 5.5 (5.0-8.0); Protein,Urine 1+ (Negative); RBC,Urine 115 /hpf (0-5); Specific Gravity,Urine 1.012 (1.001-1.035); Squamous Epithelial Cell,Urine 1 /hpf (0-4); WBC,Urine 173 /hpf (0-5)
[2018-07-14] MEDS ORDERED: SODIUM CHLORIDE 0.9% 1,000 ML IV ONE (00:13)
[2018-07-14 02:12] VITALS: BP 154/69; PULSE 69; RESP 16
== END 2018-07-14 02:00 | disposition home or self-care (01) ==
LOC: EC 20:37
DX: N39.0 Urinary tract infection, site not specified (principal); R64 Cachexia; K43.2 Incisional hernia without obstruction or gangrene; R23.1 Pallor; R41.0 Disorientation, unspecified; I10 Essential (primary) hypertension; N42.9 Disorder of prostate, unspecified; Z87.891 Personal history of nicotine dependence; Z88.1 Allergy status to other antibiotic agents; Z88.6 Allergy status to analgesic agent; Z91.040 Latex allergy status; Z79.899 Other long term (current) drug therapy; Z98.890 Other specified postprocedural states
CPT/HCPCS: 36415; 80053; 81001; 82550; 82553; 83605; 84484; 85025; 85610; 85730; 87086; 93005; 96360; 99285

== ENCOUNTER 2018-07-24 23:47 | Inpatient (IN) | payer MEDICARE ==
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
[2018-07-25] MEDS ORDERED: SODIUM CHLORIDE 0.9% 1,000 ML IV ONE (00:57)
[2018-07-25 00:58] LABS: Anisocytosis Slight; Basophils % (A) 1 %; Eosinophils # (A) 0.2 k/uL (0-0.7); Eosinophils % (A) 4 %; HCT 24.5 % (39.0-53.0); HGB 7.2 gm/dL (13.0-17.5); Hypochromasia Marked; Lymphocytes # (A) 0.4 k/uL (1.0-4.8); Lymphocytes % (A) 7 %; MCH 22.7 pg (25.0-35.0); MCHC 29.6 g/dL (31.0-37.0); MCV 76.7 fL (80.0-100.0); Mean Platelet Volume 7.5; Microcytosis Moderate; Monocytes # (A) 0.4 k/uL (0-1.0); Monocytes % (A) 7 %; Neutrophils # (A) 4.7 k/uL (1.3-7.7); Neutrophils % (A) 80 %; Platelet Count 161 k/uL (150-450); Poikilocytosis Slight; RBC 3.19 m/uL (4.30-5.90); RDW 19.5 % (11.5-15.5); WBC 5.9 k/uL (3.8-10.6)
--- NOTE | 2018-07-25 00:59 | XR ---
EXAMINATION TYPE: XR KUB DATE OF EXAM: 07/25/2018 COMPARISON: 07/11/2018 HISTORY: Constipation TECHNIQUE: 2 views upright FINDINGS: There are some dilated loops of small bowel in the left abdomen. I see no sign of free air. There is fecal material in the right colon. IMPRESSION: Dilated small bowel is new compared to old exam and suggestive of mechanical small bowel obstruction. No free air.
[2018-07-25 01:04] LABS: Albumin 2.8 g/dL (3.5-5.0); Calcium 8.4 mg/dL (8.4-10.2); Potassium 4.3 mmol/L (3.5-5.1); Total Bilirubin 1.4 mg/dL (0.2-1.3); Total Protein 6.8 g/dL (6.3-8.2)
--- NOTE | 2018-07-25 02:07 | CT ---
EXAMINATION TYPE: CT abdomen pelvis w con DATE OF EXAM: 07/25/2018 COMPARISON: 11/06/2017 HISTORY: abd pain CT DLP: 931.60 mGycm Automated exposure control for dose reduction was used. TECHNIQUE: Helical acquisition of images was performed from the lung bases through the pelvis. CONTRAST: Performed without Oral Contrast and with IV Contrast, patient injected with 100 mL of Isovue 300. FINDINGS: There is small bilateral pleural effusions. There is moderate ascites fluid. Is slightly enlarged. There are numerous hypodense areas throughout the liver consistent with metastatic disease. These hav e variable sizes. The largest is in the anterior right lobe and measures 8 cm. Spleen appears normal. There appears to be extensive retroperitoneal adenopathy with lymph nodes in the upper abdomen that measure up to 5 x 2.5 cm. There is incarcerated epigastric ventral hernia that contains bowel. There is a 0.5 cm rounded mixed density mass on the lateral right kidney consistent with tumor. Central por tion has hypodensity that could relate to necrosis. This is increased 1 cm in size compared to old ex am. There is inferior vena cava filter. There are bilateral renal cortical cysts that measure up to 2 cm. There is no hydronephrosis. Abdominal aorta is atheromatous. There is 2.5 cm calculus in the uri nary bladder on the left side. Prostate is enlarged and measures 6.6 cm. There is right inguinal gilbert ia that contains ascites fluid. There is gas and fecal filled distended loops of large bowel likely r elated to ileus. I do not see a definite mechanical bowel obstruction. The lumbar spine is intact. I see no focal bone destruction. There is no compression fracture. The bony pelvis is intact. There is 6 x 4 cm soft tissue density mass above the left iliac crest in the left paraspinal region consistent with tumor. This is new compared to old exam. There is infiltrative mass along the left psoas muscle extending to the left ilium consistent with tumor. 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 IS INCREASED RETROPERITONEAL ADENOPATHY COMPARED TO OLD EXAM. INFILTRATIVE TYPE MASS INVOLVING THE PE LVIS ON THE LEFT SIDE CONSISTENT WITH TUMOR IS A CHANGE COMPARED TO OLD EXAM. RETROPERITONEAL HEMORRH AGE HOWEVER CANNOT BE ENTIRELY EXCLUDED. INCARCERATED VENTRAL HERNIA CONTAINING SMALL BOWEL BUT NO EVIDENCE OF A MECHANICAL OBSTRUCTION. LARGE BLADDER CALCULUS UNCHANGED. DISTENDED LARGE BOWEL WITH FECAL MATERIAL AND AIR CONSISTENT WITH ILEUS. I DO NOT SEE EVIDENCE FOR A MECHANICAL TYPE OF BOWEL OBSTRUCTION. THERE IS REDUNDANT SIGMOID COLON THAT WAS ATTRIBUTED TO THE SMA LL BOWEL ON THE ABDOMEN X-RAY TODAY. THERE IS NEW MODERATE ASCITES. NEW BILATERAL PLEURAL EFFUSIONS.
[2018-07-25] MEDS ORDERED: NALOXONE 0.4 MG/ML 1 ML VIAL IV PRN (02:50)
[2018-07-25] MEDS: SODIUM CHLORIDE 0.9% 1,000 ML IV SCH ×3 (04:30→23:24)
[2018-07-25] MEDS ORDERED: DOCUSATE 100 MG CAP PO PRN (05:21)
[2018-07-25] MEDS ORDERED: PANTOPRAZOLE 40 MG TABLET PO PRN (05:24)
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
[2018-07-25] MEDS: METOPROLOL TARTRATE 50 MG TAB PO SCH ×3 (10:23→21:41)
[2018-07-25] MEDS: HEPARIN SODIUM,PORCINE 5,000 UNIT/ML 1 ML VIAL SQ SCH ×2 (10:23→16:18)
[2018-07-25] MEDS: TAMSULOSIN 0.4 MG CAP.ER.24H PO SCH (10:23)
[2018-07-25 12:13] LABS: Appearance,Urine Clear (Clear); Bacteria,Urine Occasional /hpf; Bilirubin,Urine Negative (Negative); Blood,Urine Moderate (Negative); Budding Yeast,Urine Occasional /hpf; Color,Urine Yellow; Glucose,Urine (UA) Negative (Negative); Hyphae Yeast, Urine Occasional /hpf; Ketones,Urine Negative (Negative); Leukocyte Esterase,Urine Large (Negative); Mucus,Urine Rare /hpf; Nitrite,Urine Negative (Negative); PH, Urine 5.5 (5.0-8.0); Protein,Urine Trace (Negative); RBC,Urine 35 /hpf (0-5); Specific Gravity,Urine 1.026 (1.001-1.035); Squamous Epithelial Cell,Urine 3 /hpf (0-4); Transitional Epi Cells,Urine <1 /hpf (0-1); WBC,Urine 49 /hpf (0-5)
--- NOTE | 2018-07-25 16:24 | P.PN ---
Progress Note - Text Progress Note Date: 07/25/18 Hospitalist interval: For full note from 07/25 please see H&P by Dr. Tabares. Delayed charting patient seen at approximately 11 AM. Son present at bedside and he provided interpretation services. Offered a check processor however son declined interperter phone. Patient had a large dowel movement in the ED. D/W son the results to CT with concern for enlargement of known renal mass and hepatic masses with enlargement and the additionl on left sided mass in the pelvis. Patient had a biopsy that was non diagnositic of the renal mass approximately 1 year ago. Apparently son tried to get patient to follow-up but he refused because it was not painful and did not want follow-up. Son was aware that it was likely cancerous at that time. We discussed the advancement and that if the patient would biopsy or not. At this time the patient is reluctant for repeat biopsy as it took 3 attempts last time. I told the son likely cancer and we will have oncology evaluate the patient and discuss options, but that we will likely need a tissue sample to guide treatment, if the patient would want treatment. I asked the son (Don) to discuss with the patient, patient's , and patients daughter if they would like a work up of the mass and that it is likely cancerous. Family will discuss with patient and alert us of how aggressive of a work up they would like. Son is very familiar with cancer dx as he is currently undergoing a clinical trial for lung cancer. Patient never followed with Dr. Spears after discharge. Patient denies any pain, shortness of breath, nausea at this time. Tolerated his liquid diet. General: chronically ill appearing, no distress, appears at stated age Derm: warm, dry Head: atraumatic, normocephalic, symmetric Eyes: EOMI, no lid lag, anicteric sclera Mouth: no lip lesion, mucus membranes moist Cardiovascular: S1S2 reg, no murmur, positive posterior tibial pulse bilateral, Lungs: CTA bilateral, no rhonchi, no rales , no accessory muscle use Abdominal: +BS, soft, nontender to palpation, no guarding, no appreciable organomegaly, + ventral hernia Ext: no gross muscle atrophy, no edema, no contractures Neuro: CN II-XI grossly intact, no focal neuro deficits Psych: unable to assess independently as does not speak estonian, per sons interpertation patient appears alert and understands questioning. ileus and constipation - appears resolved - monitor for recurrence Incarcerated Hernia - needs surgical evaluation if would want work up, right now it is not painful and patient does not want eval Renal mass with evidence of metastatic disease - D/W Lizzeth Goldman NP - Await oncology eval - Biopsy if patient willing DX: renal Mass Discussion with Son and Patient A total of 25 minutes of face to face time was spent discussing advanced care planning and if patient would like to proceed with diagnostic evaluation.
[2018-07-25 17:50] LABS: Iron Saturation 8.81 (15.00-50.00)
[2018-07-26] MEDS: HEPARIN SODIUM,PORCINE 5,000 UNIT/ML 1 ML VIAL SQ SCH ×2 (01:15→09:09)
[2018-07-26 02:27] VITALS: TEMP 98
[2018-07-26 07:11] LABS: Anisocytosis Slight; Basophils % (A) 0 %; Eosinophils # (A) 0.2 k/uL (0-0.7); Eosinophils % (A) 3 %; HCT 25.8 % (39.0-53.0); HGB 7.5 gm/dL (13.0-17.5); Hypochromasia Marked; Lymphocytes # (A) 0.5 k/uL (1.0-4.8); Lymphocytes % (A) 9 %; MCH 22.7 pg (25.0-35.0); MCV 78.4 fL (80.0-100.0); Mean Platelet Volume 6.8; Microcytosis Slight; Monocytes # (A) 0.4 k/uL (0-1.0); Monocytes % (A) 6 %; Neutrophils # (A) 4.9 k/uL (1.3-7.7); Neutrophils % (A) 80 %; Platelet Count 144 k/uL (150-450); Poikilocytosis Slight; RBC 3.29 m/uL (4.30-5.90); RDW 19.6 % (11.5-15.5); WBC 6.1 k/uL (3.8-10.6)
[2018-07-26 07:19] LABS: ALT 24 U/L (21-72); AST 54 U/L (17-59); Albumin 2.5 g/dL (3.5-5.0); Alkaline Phosphatase 154 U/L (38-126); Anion Gap 7 mmol/L; Blood Urea Nitrogen 24 mg/dL (9-20); Carbon Dioxide 19 mmol/L (22-30); Chloride 109 mmol/L (98-107); Glucose 87 mg/dL (74-99); Lipase 220 U/L (23-300); Magnesium 1.9 mg/dL (1.6-2.3); Potassium 4.2 mmol/L (3.5-5.1); Sodium 135 mmol/L (137-145); Total Bilirubin 1.7 mg/dL (0.2-1.3); Total Protein 6.2 g/dL (6.3-8.2)
[2018-07-26 08:19] VITALS: BP 166/72; PULSE 74; RESP 16
[2018-07-26] MEDS ORDERED: FLUCONAZOLE 100 MG TAB PO SCH (09:00)
[2018-07-26] MEDS: METOPROLOL TARTRATE 50 MG TAB PO SCH (09:09)
[2018-07-26] MEDS: TAMSULOSIN 0.4 MG CAP.ER.24H PO SCH (09:09)
[2018-07-26 11:41] VITALS: BMI 22.4
--- NOTE | 2018-07-26 15:52 | P.DS ---
Providers Date of admission: 07/25/18 02:50 Expected date of discharge: 07/26/18 Attending physician: Lyubov Tabares MD Consults: 07/25/18 12:08 Consult Physician Routine Consulting Provider: Jose Spears Consult Reason/Comments: likely cancer with metastatic disease, lost to follow up frp, 08/04 Do you want consulting provider notified?: Yes Primary care physician: Aramndo Javier Hospital Course: Discharge Diagnosis: Renal mass with palpable metastatic disease Ileus with Constipation GLORIA due to Dehydration Severe microcytic anemia Incarcerated hernia, per patient has been there for years and that is nonpainful Hypertension Hospital Course: Patient is an 82-year-old male with a past medical history of prostate cancer, chronic right lower extremity wound, atrial fibrillation, chronic anemia, and history of GI bleeds who presented to the ER with complaints of constipation. In the ER he underwent an extensive evaluation. His initial vital signs were within normal limits. His hemoglobin was at his baseline of 7.5. He appeared slightly dehydrated with a BUN of 30 and a creatinine of 1.02. He underwent a CT of the abdomen and pelvis which demonstrated ileus as well as a large right-sided renal mass with metastatic disease to the liver and left iliac area. He was admitted for management of his constipation. He had a large bowel movement shortly after admission and was placed on IV fluids. Thorough record review was performed from July 2017. At that point in time he was found to have a right renal mass with metastatic disease to the liver. He had a biopsy that hospitalization which was nondiagnostic. After much discussion with the son and he states that the patient has refused to follow-up as he has not had any pain. The son has been trying to convince him to follow with oncology. Case was also discussed with oncology nurse practitioner. Patient did have an appointment with Dr. Maya in November 2017 however he did not show for that appointment and was not able to be contacted afterwards. I offered to use the remedial teacher phone to discuss results with patient with the remedial teacher phone, however patient's son states that the remedial teacher phone has not been successful in the past and wanted to convey results to patient. We discussed attempting a biopsy and the patient did not want to do this as it took 3 attempts to obtain the renal biopsy. He did not see the point in working it up as it is not painful. Lipase was slightly elevated at 406. Bilirubin slightly elevated at 1.5 days and iron study shows severe iron deficiency. However we did not start iron supplementation with possible need for further evaluation with oncology and patient's recent severe constipation. Patient was seen by oncology services they again recommended biopsy if definitive treatment/ diagnosis was what the patient wanted, they recommended hospice care if the patient did not further work-up. Of note the patient has been in the ER multiple times recently for both diarrhea and dehydration. After again a discussion with the son, Morgan who goes by Jose Manuel, he would like to discuss the results with Dr. Javier the patient's primary care physician who feels may be able to better communicate these results with the patient and convenience him to undergo biopsy. Patient was subsequently discharged as he was getting dressed and refusing to stay. He also had what appeared to be a partially treated UTI and had been taking augmentin as an outpatient, culture was not available at time of discharge and patient was told to complete course of augmentin and stat difulcan (budding hyphe on UA). Prescriptions were sent to his pharmacy. Discussed with son and spoke with Dr. Javier office's we will fax with patients permission his H and P, Consults, Radiology report, and this discharge to Dr. Javier's office. Patient seen and examined at bedside. Denies any abdominal pain, had a BM today and yeserday. No nausea, tolerating diet. States he feels fine and is going home. Patient removed his own IV and continued to get dressed during our conversation. Vital signs reviewed and stable. General: non toxic, no distress, appears at stated age Derm: warm, dry Head: atraumatic, normocephalic, symmetric Eyes: EOMI, no lid lag, anicteric sclera Mouth: no lip lesion, mucus membranes moist Cardiovascular: S1S2 reg, no murmur, positive posterior tibial pulse bilateral, Lungs: CTA bilateral, no rhonchi, no rales , no accessory muscle use Abdominal: soft, nontender to palpation, no guarding, no appreciable organomegaly, reducible tight sided hernia. Ext: no gross muscle atrophy, no edema, no contractures Neuro: CN II-XI grossly intact, no focal neuro deficits Psych: unable to assess due to language barrier A total of 35 minutes of time were spent preparing this complex discharge summary . Pertinent Studies: CT abdomen and plevis- results as above Patient Condition at Discharge: Poor Plan - Discharge Summary Discharge Rx Participant: No New Discharge Prescriptions: New Docusate [Colace] 100 mg PO BID PRN #60 cap PRN Reason: Constipation Fluconazole [Diflucan] 100 mg PO DAILY #10 tab Continue Tamsulosin HCl [Flomax] 0.4 mg PO QAM Metoprolol Tartrate [Lopressor] 50 mg PO TID tab Omeprazole 40 mg PO DAILY PRN PRN Reason: GERD Amoxic-Pot Clav 875-125Mg [Augmentin 875-125] 1 tab PO Q12HR Discontinued Hydrochlorothiazide 25 mg PO DAILY Docusate [Colace] 100 mg PO DAILY PRN PRN Reason: Constipation Discharge Medication List Tamsulosin HCl [Flomax] 0.4 mg PO QAM 08/01/15 [History] Metoprolol Tartrate [Lopressor] 50 mg PO TID tab 08/01/17 [Rx] Omeprazole 40 mg PO DAILY PRN 07/11/18 [History] Amoxic-Pot Clav 875-125Mg [Augmentin 875-125] 1 tab PO Q12HR 07/25/18 [History] Docusate [Colace] 100 mg PO BID PRN #60 cap 07/26/18 [Rx] Fluconazole [Diflucan] 100 mg PO DAILY #10 tab 07/26/18 [Rx] Follow up Appointment(s)/Referral(s): Armando Javier MD [Primary Care Provider] - 1-2 days (Patient to make appointment) Jose Spaers MD [STAFF PHYSICIAN] - 1 Week (Family to make appointment ) [facility] Visiting Nurse, [NON-STAFF] - As Needed Patient Instructions/Handouts: Constipation (DC), High Fiber Diet (DC) Activity/Diet/Wound Care/Special Instructions: Regular diet, high protein Activity as tolerated. Discharge Disposition: HOME WITH HOME HEALTH SERVICES
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
== END 2018-07-26 12:13 | disposition home health service (06) | DRG 389 ==
LOC: EC 23:47 → 4SSUR 07-25 02:50
PROVIDERS: ADMIT Internal Medicine; ATTEND Internal Medicine
DX: K56.7 Ileus, unspecified (principal); N17.9 Acute kidney failure, unspecified; K43.6 Other and unspecified ventral hernia with obstruction, without gangrene; C78.7 Secondary malignant neoplasm of liver and intrahepatic bile duct; E86.0 Dehydration; D50.9 Iron deficiency anemia, unspecified; I10 Essential (primary) hypertension; C61 Malignant neoplasm of prostate; R74.8 Abnormal levels of other serum enzymes; R59.0 Localized enlarged lymph nodes; N28.89 Other specified disorders of kidney and ureter; I48.91 Unspecified atrial fibrillation; I87.2 Venous insufficiency (chronic) (peripheral); I51.89 Other ill-defined heart diseases; K21.9 Gastro-esophageal reflux disease without esophagitis; Z86.718 Personal history of other venous thrombosis and embolism; Z88.8 Allergy status to other drugs, medicaments and biological substances; Z88.6 Allergy status to analgesic agent; Z88.1 Allergy status to other antibiotic agents; Z91.040 Latex allergy status; Z82.1 Family history of blindness and visual loss; Z82.3 Family history of stroke; Z87.442 Personal history of urinary calculi; Z87.891 Personal history of nicotine dependence
CPT/HCPCS: 36415; 74018; 74177; 80053; 81001; 82728; 83540; 83550; 83690; 83735; 85025; 87086; 93005; 96360; 96361; 99285

== ENCOUNTER 2018-08-06 21:13 | Inpatient (IN) | payer MEDICARE ==
[2018-08-06 22:02] LABS: Anisocytosis Moderate; Basophils % (A) 0 %; Eosinophils # (A) 0.1 k/uL (0-0.7); Eosinophils % (A) 1 %; HCT 27.5 % (39.0-53.0); HGB 8.2 gm/dL (13.0-17.5); Hypochromasia Marked; Lymphocytes # (A) 0.6 k/uL (1.0-4.8); Lymphocytes % (A) 7 %; MCH 22.6 pg (25.0-35.0); MCHC 29.8 g/dL (31.0-37.0); MCV 75.8 fL (80.0-100.0); Mean Platelet Volume 6.9; Microcytosis Moderate; Monocytes # (A) 0.5 k/uL (0-1.0); Monocytes % (A) 6 %; Neutrophils # (A) 6.9 k/uL (1.3-7.7); Neutrophils % (A) 84 %; Platelet Count 104 k/uL (150-450); Poikilocytosis Slight; RBC 3.63 m/uL (4.30-5.90); RDW 21.2 % (11.5-15.5); WBC 8.2 k/uL (3.8-10.6)
[2018-08-06 22:11] LABS: INR 1.3 (<1.2); Partial Thromboplastin Time 23.8 sec (22.0-30.0); Prothrombin Time 12.3 sec (9.0-12.0)
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
[2018-08-06 22:19] LABS: Albumin 2.7 g/dL (3.5-5.0); Calcium 8.1 mg/dL (8.4-10.2); Magnesium 2.2 mg/dL (1.6-2.3); Potassium 3.8 mmol/L (3.5-5.1); Total Bilirubin 2.9 mg/dL (0.2-1.3); Total Protein 6.8 g/dL (6.3-8.2)
[2018-08-06 22:34] LABS: Troponin I 0.021 ng/mL (0.000-0.034)
--- NOTE | 2018-08-06 22:54 | XR ---
EXAMINATION TYPE: XR chest 2V DATE OF EXAM: 08/06/2018 COMPARISON: 07/20/2017 HISTORY: Difficulty breathing TECHNIQUE: Frontal and lateral views of the chest are obtained. FINDINGS: There is some blunting of the costophrenic angles. Heart size is normal. There are chest l yusuf. Bony thorax is intact. There is arthritic change at both shoulder joints. IMPRESSION: Small pleural effusions. No heart failure. Pleural fluid increased compared to old exam. Mild cardiomegaly.
[2018-08-06] MEDS ORDERED: SODIUM CHLORIDE 0.9% 1,000 ML IV STA (23:20)
[2018-08-06] MEDS ORDERED: FUROSEMIDE 10 MG/ML 4 ML VIAL IV STA (23:22)
[2018-08-06] MEDS ORDERED: NALOXONE 0.4 MG/ML 1 ML VIAL IV PRN (23:23)
[2018-08-07] MEDS ORDERED: ZOLPIDEM 5 MG TAB PO ONE (02:42)
[2018-08-07] MEDS ORDERED: PANTOPRAZOLE 40 MG TABLET PO PRN (02:42)
[2018-08-07] MEDS ORDERED: DOCUSATE 100 MG CAP PO PRN (02:42)
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
[2018-08-07 07:27] LABS: Potassium 3.3 mmol/L (3.5-5.1)
[2018-08-07 07:28] LABS: Albumin 2.4 g/dL (3.5-5.0); Calcium 7.9 mg/dL (8.4-10.2); Total Bilirubin 2.6 mg/dL (0.2-1.3); Total Protein 6.3 g/dL (6.3-8.2)
[2018-08-07 07:30] LABS: Anisocytosis Moderate; Basophils % (A) 0 %; Eosinophils # (A) 0.1 k/uL (0-0.7); Eosinophils % (A) 2 %; HCT 25.6 % (39.0-53.0); HGB 7.6 gm/dL (13.0-17.5); Hypochromasia Marked; Lymphocytes # (A) 0.5 k/uL (1.0-4.8); Lymphocytes % (A) 7 %; MCHC 29.8 g/dL (31.0-37.0); MCV 77.2 fL (80.0-100.0); Mean Platelet Volume 7.8; Microcytosis Moderate; Monocytes # (A) 0.5 k/uL (0-1.0); Monocytes % (A) 6 %; Neutrophils # (A) 6.4 k/uL (1.3-7.7); Neutrophils % (A) 84 %; Platelet Count 127 k/uL (150-450); Poikilocytosis Slight; RBC 3.31 m/uL (4.30-5.90); RDW 20.8 % (11.5-15.5); WBC 7.6 k/uL (3.8-10.6)
[2018-08-07] MEDS ORDERED: POTASSIUM CHLORIDE ER 20 MEQ TAB.ER PO STA (08:02)
[2018-08-07] MEDS ORDERED: POTASSIUM CHLORIDE 20 MEQ in WATER FOR INJECTION 1 100ML.BAG IVPB STA (08:02)
[2018-08-07] MEDS: TAMSULOSIN 0.4 MG CAP.ER.24H PO SCH (08:44)
[2018-08-07] MEDS: METOPROLOL TARTRATE 50 MG TAB PO SCH ×3 (08:44→21:41)
--- NOTE | 2018-08-07 11:40 | ECHOF ---
Referral Reason:SOA, edema MEASUREMENTS -------- HEIGHT: 180.3 cm WEIGHT: 88.0 kg BP: 134/80 IVSd: 0.8 cm (0.6 - 1.1) LVIDd: 4.0 cm (3.9 - 5.3) LVPWd: 0.8 cm (0.6 - 1.1) IVSs: 1.2 cm LVIDs: 1.2 cm LVPWs: 1.4 cm LAESV Index (A-L): 44.32 ml/m Ao Diam: 3.7 cm (2.0 - 3.7) AV Cusp: 1.3 cm (1.5 - 2.6) LA Diam: 4.2 cm (2.7 - 3.8) MV EXCURSION: 10.933 mm (> 18.000) MV EF SLOPE: 71 mm/s (70 - 150) EPSS: 4.6 cm MV E Isaías: 1.58 m/s MV DecT: 176 ms MV A Isaías: 0.66 m/s MV E/A Ratio: 2.40 AV maxP.08 mmHg AV meanP.04 mmHg AR PHT: 502 ms RAP: 5.00 mmHg RVSP: 38.56 mmHg FINDINGS -------- Sinus rhythm. This was a technically adequate study. The left ventricular size is normal. Left ventricular wall thickness is normal. Overall left vent ricular systolic function is normal with, an EF between 55 - 60 %. The right ventricle is normal in size and function. LA is severely dilated >40 ml/m2 The right atrium is normal in size. Aortic valve is trileaflet and is mildly thickened. Trace amount of aortic regurgitation. There is mild aortic stenosis present. Peak/mean gradient across the Aortic Valve is 20.08mmHg / 11.04mmH g. The mitral valve leaflets are mildly thickened. Mild mitral annular calcification present. Modera te mitral regurgitation is present. Trace tricuspid regurgitation present. The right ventricular systolic pressure, as measured by Dopp ler, is 38.56mmHg. Pulmonic valve appears structurally normal. The aortic root size is normal. There is a trivial pericardial effusion present. Large Pleural Effusion. CONCLUSIONS -------- 1. Sinus rhythm. 2. This was a technically adequate study. 3. The left ventricular size is normal. 4. Left ventricular wall thickness is normal. 5. Overall left ventricular systolic function is normal with, an EF between 55 - 60 %. 6. The right ventricle is normal in size and function. 7. LA is severely dilated >40 ml/m2 8. The right atrium is normal in size. 9. Aortic valve is trileaflet and is mildly thickened. 10. Trace amount of aortic regurgitation. 11. There is mild aortic stenosis present. 12. Peak/mean gradient across the Aortic Valve is 20.08mmHg / 11.04mmHg. 13. The mitral valve leaflets are mildly thickened. 14. Mild mitral annular calcification present. 15. Moderate mitral regurgitation is present. 16. Trace tricuspid regurgitation present. 17. The right ventricular systolic pressure, as measured by Doppler, is 38.56mmHg. 18. Pulmonic valve appears structurally normal. 19. The aortic root size is normal. 20. There is a trivial pericardial effusion present. 21. Large Pleural Effusion. DRAMA DIRECTOR: Dolores Cazares RDCS
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
--- NOTE | 2018-08-07 18:31 | P.PN ---
Progress Note - Text Progress Note Date: 08/07/18 Advanced care planning: Spoke with the patient via telephone Kehinde site interpreter in length. The patient was AAOx3 and understood that he has Metastatic malignancy, possibly renal in origin and mentioned that he has been progressively getting weaker and is no longer able to ambulate even with a walker. He further noted that he has been having more diffuse abdominal pain with nausea and anorexia and feels he isn't able to eat or drink as much. Discussed code status with the patient who endorsed that in the event of a cardiac arrest, he would not wish to be kept alive via life support since he is "more than 79 years old". He wished to be made DNR and DNI. Further discussed the patient's goals of care. The patient noted that he feels he would not be able to tolerate any aggressive interventions as he is very weak. He agreed to a meeting with the hospice team to discuss his options. Spoke with the patient's son Morgan (DPOA) who agreed with the patient's decisions and endorsed that he believes his father is too old and weak to undergo any further aggressive interventions including another biopsy or subsequent chemotherapy or radiation. He noted that there is little help at home since the patient's is also very elderly and isn't able to care for him now that he can't ambulate. Furthermore, the son has a full-time job and there isn't anyone else at home. He felt that his father would be best suited for a facility where he may get comfort care. Informed patient that a meeting will be arranged with the hospice team tomorrow. Provided support to both the patient and the family. Will have in-person discussion with patient's family tomorrow am.
[2018-08-08 06:54] LABS: Anisocytosis Moderate; Basophils % (A) 0 %; Eosinophils # (A) 0.3 k/uL (0-0.7); Eosinophils % (A) 3 %; HCT 28.4 % (39.0-53.0); HGB 8.4 gm/dL (13.0-17.5); Hypochromasia Marked; Lymphocytes # (A) 0.5 k/uL (1.0-4.8); Lymphocytes % (A) 6 %; MCH 23.1 pg (25.0-35.0); MCHC 29.5 g/dL (31.0-37.0); MCV 78.4 fL (80.0-100.0); Mean Platelet Volume 8.4; Microcytosis Moderate; Monocytes # (A) 0.5 k/uL (0-1.0); Monocytes % (A) 6 %; Neutrophils # (A) 6.6 k/uL (1.3-7.7); Neutrophils % (A) 82 %; Platelet Count 128 k/uL (150-450); Poikilocytosis Slight; RBC 3.63 m/uL (4.30-5.90); RDW 20.9 % (11.5-15.5)
[2018-08-08 07:13] LABS: Albumin 2.4 g/dL (3.5-5.0); Calcium 7.9 mg/dL (8.4-10.2); Potassium 4.4 mmol/L (3.5-5.1); Total Bilirubin 2.8 mg/dL (0.2-1.3); Total Protein 6.3 g/dL (6.3-8.2)
[2018-08-08] MEDS: METOPROLOL TARTRATE 50 MG TAB PO SCH ×3 (08:45→22:03)
[2018-08-08] MEDS: TAMSULOSIN 0.4 MG CAP.ER.24H PO SCH (08:45)
[2018-08-08] MEDS ORDERED: traMADol 50 MG TAB PO STA (09:43)
--- NOTE | 2018-08-08 14:32 | P.PN ---
Subjective Progress Note Date: 08/08/18 Patient was seen and examined this morning, he did diuresis through the night with this one dose of IV Lasix. We will put him on oral diuretics today. Let pressure 115/60 with a heart rate in the 80s, 97% on 2 L of oxygen. Globin 8.4 today, platelet count 128, sodium 135, potassium 4.4, BUN 35, creatinine 1.2. Echocardiogram with Doppler study revealed an ejection fraction of 55-60%. Objective - Vital Signs Vital signs: Vital Signs Temp 98 F 08/08/18 08:15 Pulse 88 08/08/18 11:35 Resp 16 08/08/18 11:35 BP 115/61 08/08/18 11:35 Pulse Ox 97 08/08/18 11:35 Intake & Output 08/07/18 08/08/18 08/08/18 18:59 06:59 18:59 Intake Total 240 90 Balance 240 90 Weight 73.936 kg Intake: Oral 240 90 Other: Voiding Method Incontinent Incontinent # Voids 1 0 # Bowel Movements 1 1 - Exam PHYSICAL EXAMINATION: GENERAL: 82-year-old gentleman in no acute distress at the time of my examination HEENT: Head is atraumatic, normocephalic. Pupils equal, round. Sclera anicteric. Conjunctiva are clear. Mucous membranes of the mouth are moist. Neck is supple. There is elevated jugular venous pressure. No carotid bruit is heard. HEART EXAMINATION: Heart S1 and S2 irregularly irregular a systolic murmur is heard. CHEST EXAMINATION: Lungs are clear to auscultation and precussion. No chest wall tenderness is noted on palpation or with deep breathing. ABDOMEN: Soft, nontender. Bowel sounds are heard. No organomegaly noted. EXTREMITIES: 2+ peripheral pulses with no evidence of peripheral edema and no calf tenderness noted. NEUROLOGIC patient is awake, alert and oriented X3. - Labs CBC & Chem 7: 08/08/18 06:14 08/08/18 06:14 Labs: Abnormal Lab Results - Last 24 Hours (Table) 08/08/18 08/08/18 Range/Units 06:14 06:14 RBC 3.63 L (4.30-5.90) m/uL Hgb 8.4 L (13.0-17.5) gm/dL Hct 28.4 L (39.0-53.0) % MCV 78.4 L (80.0-100.0) fL MCH 23.1 L (25.0-35.0) pg MCHC 29.5 L (31.0-37.0) g/dL RDW 20.9 H (11.5-15.5) % Plt Count 128 L (150-450) k/uL Lymphocytes # 0.5 L (1.0-4.8) k/uL Sodium 135 L (137-145) mmol/L BUN 35 H (9-20) mg/dL Creatinine 1.26 H (0.66-1.25) mg/dL Glucose 103 H (74-99) mg/dL Calcium 7.9 L (8.4-10.2) mg/dL Total Bilirubin 2.8 H (0.2-1.3) mg/dL AST 85 H (17-59) U/L Alkaline Phosphatase 321 H (38-126) U/L Albumin 2.4 L (3.5-5.0) g/dL Assessment and Plan Plan: Assessment and plan #1 chronic persistent atrial fibrillation, patient not felt to be a candidate for Coumadin in the past because of anemia and GI bleed #2 left renal mass, probable metastatic disease #3 diastolic congestive heart failure acute on chronic #4 anemia, acute on chronic #5 history of prostate cancer #6 history of DVT #7 hypokalemia Plan From cardiology's perspective, we'll follow this patient along with you now on an as-needed basis only, please don't hesitate to call with any questions. DNP note has been reviewed, I agree with a documented findings and plan of care. Patient was seen and examined.
--- NOTE | 2018-08-08 15:00 | P.PN ---
Subjective Progress Note Date: 08/08/18 The patient is an 82 yo M, Maded[place] speaking, with a PMH of prostate ca, chronic A-fib (not on AC due to hx of GIB), multiple DVTs, R renal mass w/ likely metastatic disease (multiple inconclusive biopsies) who presented to the ED w/ c/o progressive SOB and weakness. History obtained via telephone [place] flight surveyor. The patient noted that since his discharge from hospital 2 weeks ago, he has been increasingly fatigued with anorexia and weight loss and is unable to ambulate even with a walker. He also endorsed worsening abdominal pain, distension, and LE edema over same duration. The patient was recently discharged from [facility] on 07/26/18 when he was admitted for abdominal distension. He was seen by Oncology and was offered repeat biopsy which the patient had refused at that time. He was scheduled to f/ u with his PMD to discuss his options. In the ED, the patient had a comprehensive w/u w/ Hgb 8.2, Cr 1.31, Bilirubin 2.9, AST 89, ALT 31, EKG w/ Aflutter and negative for ischemia. CXR w/ small pleural effusions and mild cardiomegaly. Patient was admitted to the medicine for likely progressive malignancy w/ failure to thrive. Patient seen and examined with son at the bedside. Discussed options with the patient and his son w/ the son serving as the flight surveyor. The son re-iterated his wishes for his father to go to an inpatient facility where he may undergo hospice care. The patient and the son were both in agreement for no further diagnostic testing for a malignancy and to move forward with hospice care. The patient c/o abdominal pain but otherwise denied any chest pain, or SOB at rest, dysuria, headache, or visual changes. Objective - Vital Signs Vital signs: Vital Signs Temp 98 F 08/08/18 08:15 Pulse 88 08/08/18 11:35 Resp 16 08/08/18 11:35 BP 115/61 08/08/18 11:35 Pulse Ox 97 08/08/18 11:35 Intake & Output 08/07/18 08/08/18 08/08/18 18:59 06:59 18:59 Intake Total 240 90 Balance 240 90 Weight 73.936 kg Intake: Oral 240 90 Other: Voiding Method Incontinent Incontinent # Voids 1 0 # Bowel Movements 1 1 - Exam General: Non-toxic, in no acute distress, appears stated age HEENT: NC/AT, anicteric sclerae, moist conjunctiva, no lid-lag, PERRLA Cardiovascular: S1/S2 wnl, no murmurs, rubs, or gallops Lungs: Bibasilar diminished breath sounds, normal respiratory effort, no accessory muscle use Abdominal: Very distended abdomen w/ ventral wall hernia and nodularity throughout, multiple underlying masses palpated, diffuse mild tenderness to palpation Skin: Warm, dry Extremities: 2+ LE edema meg to thighs Psychiatric: Alert and oriented to person, place and time, appropriate affect, Intact judgment Neuro: CN II-XII grossly intact, Strength 4/5 in UEs meg w/ 3/5 on meg LEs, Speech intact, Sensation to light touch grossly intact throughout - Labs CBC & Chem 7: 08/08/18 06:14 08/08/18 06:14 Labs: Abnormal Lab Results - Last 24 Hours (Table) 08/08/18 08/08/18 Range/Units 06:14 06:14 RBC 3.63 L (4.30-5.90) m/uL Hgb 8.4 L (13.0-17.5) gm/dL Hct 28.4 L (39.0-53.0) % MCV 78.4 L (80.0-100.0) fL MCH 23.1 L (25.0-35.0) pg MCHC 29.5 L (31.0-37.0) g/dL RDW 20.9 H (11.5-15.5) % Plt Count 128 L (150-450) k/uL Lymphocytes # 0.5 L (1.0-4.8) k/uL Sodium 135 L (137-145) mmol/L BUN 35 H (9-20) mg/dL Creatinine 1.26 H (0.66-1.25) mg/dL Glucose 103 H (74-99) mg/dL Calcium 7.9 L (8.4-10.2) mg/dL Total Bilirubin 2.8 H (0.2-1.3) mg/dL AST 85 H (17-59) U/L Alkaline Phosphatase 321 H (38-126) U/L Albumin 2.4 L (3.5-5.0) g/dL Assessment and Plan Plan: Metastatic malignancy w/ unknown primary w/ failure to thrive -Hospice consult placed -Pain control w/ MS ER 15 mg q12h for now Dyspnea w/ LE edema -Likely secondary to advanced malignancy w/ fluid third-spacing from hypoalbuminemia -Echocardiogram reviewed. Cardiology recs appreciated -Supplemental oxygen Microcytic anemia w/ thrombocytopenia -Likely secondary to chronic disease GLORIA on CKD -Likely due to dehydration and failure to thrive -C/w regular diet and encourage po fluid intake Chronic Afib -Not on Anticoagulation due to hx of GIBs -Cardiology recs appreciated Hyperbilirubinemia -Pt has evidence of multiple metastatic lesions to the liver w/ previously elevated bilirubin levels DVT//GI prophylaxis - Lovenox - No indication for GI prophylaxis Discussed with: Patient, Son Anticipated discharge date: 08/09/[address]: Hospice facility A total of 40 minutes was spent on the care of this complex patient more than 50 % of the time was spent in counseling and care coordination.
[2018-08-08] MEDS: MORPHINE SULFATE ER 15 MG TABLET PO SCH (20:24)
[2018-08-09 07:16] LABS: Anisocytosis Moderate; Basophils % (A) 1 %; Eosinophils # (A) 0.3 k/uL (0-0.7); Eosinophils % (A) 3 %; HCT 28.5 % (39.0-53.0); HGB 8.5 gm/dL (13.0-17.5); Hypochromasia Marked; Lymphocytes # (A) 0.8 k/uL (1.0-4.8); Lymphocytes % (A) 10 %; MCH 23.7 pg (25.0-35.0); MCHC 29.7 g/dL (31.0-37.0); MCV 79.7 fL (80.0-100.0); Mean Platelet Volume 8.9; Microcytosis Slight; Monocytes # (A) 0.6 k/uL (0-1.0); Monocytes % (A) 7 %; Neutrophils # (A) 6.7 k/uL (1.3-7.7); Neutrophils % (A) 78 %; Platelet Count 119 k/uL (150-450); Poikilocytosis Slight; RBC 3.58 m/uL (4.30-5.90); RDW 21.2 % (11.5-15.5); WBC 8.6 k/uL (3.8-10.6)
[2018-08-09 07:32] LABS: Albumin 2.4 g/dL (3.5-5.0); Potassium 4.3 mmol/L (3.5-5.1); Total Bilirubin 3.2 mg/dL (0.2-1.3); Total Protein 6.4 g/dL (6.3-8.2)
[2018-08-09] MEDS ORDERED: HYDROcodone/APAP 5-325MG 1 EACH TAB PO PRN (09:24)
[2018-08-09 09:32] VITALS: BMI 17.4
--- NOTE | 2018-08-09 09:40 | P.PN ---
Subjective Progress Note Date: 08/09/18 Principal diagnosis: abdominal pain Patient is an 82-year-old Citizen Of [place] male with a history of a renal mass, chronic right lower extremity wound, and chronic A. fib who presented with weakness. Patient has a language barrier. On initial presentation he received an extensive evaluation in the ER. Chest x-ray showed small pleural effusions, hemoglobin was 8.2, sodium 133, creatinine 1.3, total bilirubin 2.9. EKG showed A. fib with variable block and no signs of ischemia. He was given a dose of Lasix and started on IV fluids in the ER. He had recently been admitted in June 2018 and was found to have a right renal mass with metastasis. At that point in time he did not want to undergo further testing or biopsies as he had a negative biopsy in the past. He insisted on being discharged as he was pain free and arrangements were made to follow-up with his PCP for further recommendations. He was seen by oncology that hospitalization who had presented him with options. After an extensive discussion earlier this hospitalization he has selected hospice care. He is unable to function at home due to weakness and inability to walk. He is currently awaiting safe discharge plan. He was started on Extended release morphine on 08/08 and was difficult to arouse overnight. Patient seen and examined at bedside. He is sleeping and awakes to touch. He denies pain. Multiple family members at bedside. We discussed no IVF due to recent pulmonary edema and that it is the normal process as we get sicked to not want to eat and drink. We discussed continued decline and keeping him pain free but more awake. Objective - Vital Signs Vital signs: Vital Signs Temp 97.9 F 08/09/18 08:00 Pulse 82 08/09/18 08:00 Resp 10 L 08/09/18 08:00 BP 105/59 08/09/18 08:00 Pulse Ox 94 L 08/09/18 08:00 Intake & Output 08/08/18 08/09/18 08/09/18 18:59 06:59 18:59 Intake Total 90 Balance 90 Weight 73.936 kg 59.874 kg Intake: Oral 90 Other: Voiding Method Incontinent Incontinent # Voids 0 0 1 # Bowel Movements 1 - Exam General: ill appearing, no distress, appears t stated age Derm: warm, dry Head: atraumatic, normocephalic, symmetric Eyes: EOMI, no lid lag, anicteric sclera Mouth: no lip lesion, mucus membranes moist Cardiovascular: S1S2 reg, no murmur, positive posterior tibial pulse bilateral, Lungs: decreased bs bilateral, no rhonchi, no rales , no accessory muscle use Abdominal: soft, nontender to palpation, no guarding, no appreciable organomegaly Ext: no gross muscle atrophy, 3+ edema right lower extremity, no contractures Neuro: CN II-XI grossly intact, no focal neuro deficits Psych: lethargic, appropriate affect - Labs CBC & Chem 7: 08/09/18 05:52 08/09/18 05:52 Labs: Abnormal Lab Results - Last 24 Hours (Table) 08/09/18 08/09/18 Range/Units 05:52 05:52 RBC 3.58 L (4.30-5.90) m/uL Hgb 8.5 L (13.0-17.5) gm/dL Hct 28.5 L (39.0-53.0) % MCV 79.7 L (80.0-100.0) fL MCH 23.7 L (25.0-35.0) pg MCHC 29.7 L (31.0-37.0) g/dL RDW 21.2 H (11.5-15.5) % Plt Count 119 L (150-450) k/uL Lymphocytes # 0.8 L (1.0-4.8) k/uL Sodium 136 L (137-145) mmol/L BUN 45 H (9-20) mg/dL Creatinine 1.55 H (0.66-1.25) mg/dL Calcium 8.0 L (8.4-10.2) mg/dL Total Bilirubin 3.2 H (0.2-1.3) mg/dL AST 92 H (17-59) U/L Alkaline Phosphatase 354 H (38-126) U/L Albumin 2.4 L (3.5-5.0) g/dL Assessment and Plan Assessment: Acute toxic encephalopathy - Stop Morphine ER - start norco and IV morphine prn Metastatic malignancy with large renal mass -Family in agreement with hospice, currently no funding/bed availability at [facility], will attempt [facility] -D/W Morphine ER due to letheragy, start norco and IV morphine prn, if pain control inadequate then consider fentanyl patch Pulmonary edema -due to hypoalbuminemia and third spacing -Echocardiogram reviewed. Cardiology recs appreciated -Supplemental oxygen Severe iron deficiency anemia - will hold of oral supplementation of iron with history of severe constipation - treatment if symptomatic only GLORIA on CKD -Likely due to dehydration and failure to thrive - will limit IVF due to recent SOB and pulmonary edema. - encourage PO fluid intake - anticipate worsening - will not continue to monitor with family and patient wishes for hospice care. Chronic Afib -Not on Anticoagulation due to hx of GIBs -Cardiology recs appreciated Hyperbilirubinemia -Pt has evidence of multiple metastatic lesions to the liver w/ previously elevated bilirubin levels Chronic Lower extremity wound - wound care Acute exacerabtion of diastolic chf, improved DVT prophylaxis: Lovenox Discussed with: Patient, family, nursing Anticipated discharge: 24-48 hours once safe discharge in place Anticipated discharge place: hospice A total of [45] minutes was spent on the care of this complex patient more than 50% of the time was spent in counseling and care coordination.
[2018-08-09] MEDS: METOPROLOL TARTRATE 50 MG TAB PO SCH ×3 (10:19→22:24)
[2018-08-09] MEDS: ENOXAPARIN 40 MG/0.4 ML SYRINGE SQ SCH (10:19)
[2018-08-09] MEDS: TAMSULOSIN 0.4 MG CAP.ER.24H PO SCH (10:19)
[2018-08-09] MEDS: MORPHINE SULFATE ER 15 MG TABLET PO SCH (10:48)
[2018-08-09] MEDS: SODIUM CHLORIDE 0.9% 1,000 ML IV SCH (17:05)
[2018-08-10] MEDS: SODIUM CHLORIDE 0.9% 1,000 ML IV SCH (03:33)
[2018-08-10] MEDS: ENOXAPARIN 40 MG/0.4 ML SYRINGE SQ SCH (07:24)
[2018-08-10] MEDS: METOPROLOL TARTRATE 50 MG TAB PO SCH (07:25)
[2018-08-10] MEDS: TAMSULOSIN 0.4 MG CAP.ER.24H PO SCH (07:25)
[2018-08-10] MEDS: MORPHINE SULFATE 2 MG/ML SYRINGE IVP PRN ×2 (10:47→19:08)
[2018-08-10] MEDS ORDERED: FUROSEMIDE 10 MG/ML 2 ML VIAL IV ONE (11:06)
--- NOTE | 2018-08-10 13:28 | P.PN ---
Subjective Progress Note Date: 08/10/18 (delayed chartin patient seen at 1040) Principal diagnosis: abdominal pain Patient is an 82-year-old [place] male with a history of a renal mass, chronic right lower extremity wound, and chronic A. fib who presented with weakness. Patient has a language barrier. On initial presentation he received an extensive evaluation in the ER. Chest x-ray showed small pleural effusions, hemoglobin was 8.2, sodium 133, creatinine 1.3, total bilirubin 2.9. EKG showed A. fib with variable block and no signs of ischemia. He was given a dose of Lasix and started on IV fluids in the ER. He had recently been admitted in June 2018 and was found to have a right renal mass with metastasis. At that point in time he did not want to undergo further testing or biopsies as he had a negative biopsy in the past. He insisted on being discharged as he was pain free and arrangements were made to follow-up with his PCP for further recommendations. He was seen by oncology that hospitalization who had presented him with options. After an extensive discussion earlier this hospitalization he has selected hospice care. He is unable to function at home due to weakness and inability to walk. He is currently awaiting safe discharge plan. He was started on Extended release morphine on 08/08 and was difficult to arouse overnight. This was discontinued and he was started on as needed morphine and norco. Fluids started again on 08/09 and patient developed respiratory distress. Patient seen and examined at bedside. Awake, alert, communicative. Son assists with interpretation offered phone but declines. Patient states he is having some pain in his belly but it is not bad. He continues to have pain from his chronic lower extremity wound. Does feel slightly short of breath. Having a cough. Again discussed with family that IV fluids will likely worsen his situation with his hypoalbuminemia will cause the lungs to get filled with fluid. Treat with 1 dose of Lasix for symptomatic improvement and KVO IV fluids. Objective - Vital Signs Vital signs: Vital Signs Temp 98.4 F 08/10/18 12:40 Pulse 82 08/10/18 12:40 Resp 17 08/10/18 12:40 BP 100/55 08/10/18 12:40 Pulse Ox 98 08/10/18 12:40 Intake & Output 08/09/18 08/10/18 08/10/18 18:59 06:59 18:59 Intake Total 590 Balance 590 Weight 59.874 kg Intake: Oral 590 Other: Voiding Method Incontinent Incontinent # Voids 1 1 - Exam General: ill appearing, no distress, appears at stated age Derm: warm, dry Head: atraumatic, normocephalic, symmetric Eyes: EOMI, no lid lag, anicteric sclera Mouth: no lip lesion, mucus membranes moist Cardiovascular: S1S2 reg, no murmur, positive posterior tibial pulse bilateral, Lungs: crackels bilateral, no rhonchi, no rales , no accessory muscle use Abdominal: soft, nontender to palpation, no guarding, no appreciable organomegaly Ext: no gross muscle atrophy, 3+ edema right lower extremity, no contractures Neuro: CN II-XI grossly intact, no focal neuro deficits Psych: Awake, appropriate affect - Labs CBC & Chem 7: 08/09/18 05:52 08/09/18 05:52 Assessment and Plan Assessment: Metastatic malignancy with large renal mass -Family in agreement with hospice, currently no funding/bed availability at [facility], No bed at [facility] may be one tomorrow or monday. -prn morphine and noro Acute exacerabtion of diastolic CHF - Lasix today - no additional IVF - off betablocker due to hypotension Severe iron deficiency anemia - will hold of oral supplementation of iron with history of severe constipation - treatment if symptomatic only GLORIA on CKD -Likely due to dehydration and failure to thrive - will limit IVF due to recent SOB and pulmonary edema. - encourage PO fluid intake - anticipate worsening - will not continue to monitor with family and patient wishes for hospice care. Chronic Afib -Not on Anticoagulation due to hx of GIBs -Cardiology recs appreciated Hyperbilirubinemia -Pt has evidence of multiple metastatic lesions to the liver w/ previously elevated bilirubin levels Chronic Lower extremity wound - wound care: change daily with vasline impregniated gauzw, abd pain, and cover with Kerlix. Acute toxic encephalopathy, resolved Plan is D/C when safe plan in place likely to [facility]. DVT prophylaxis: Lovenox Discussed with: Patient, family, nursing Anticipated discharge: 24-48 hours once safe discharge in place Anticipated discharge place: hospice A total of 25 minutes was spent on the care of this complex patient more than 50% of the time was spent in counseling and care coordination.
[2018-08-11] MEDS: MORPHINE SULFATE 2 MG/ML SYRINGE IVP PRN ×7 (00:37→23:42)
[2018-08-11] MEDS: TAMSULOSIN 0.4 MG CAP.ER.24H PO SCH (07:44)
[2018-08-11] MEDS: ENOXAPARIN 40 MG/0.4 ML SYRINGE SQ SCH (07:46)
[2018-08-11] MEDS ORDERED: ARTIFICIAL TEARS-HYPROMELLOSE DROPS 15 ML BTL BOTH EYES PRN (12:31)
[2018-08-11] MEDS ORDERED: LORazepam 2 MG/ML INJ IV PRN (12:31)
[2018-08-11] MEDS ORDERED: SCOPOLAMINE 1.5MG/72HR PATCH TRANSDERM SCH (12:45)
[2018-08-11] MEDS: ATROPINE OPHTH SOLN 1% 5ML BTL SUBLINGUAL PRN (15:02)
--- NOTE | 2018-08-11 15:59 | P.PN ---
Subjective Progress Note Date: 08/11/18 Principal diagnosis: Abdominal pain Patient seen and examined this morning. No acute events overnight. Seen sleeping comfortably in bed. Slightly difficult to arouse but answers questions appropriately. Nods no to any complaints this morning. Objective - Vital Signs Vital signs: Vital Signs Temp 97.7 F 08/11/18 12:03 Pulse 113 H 08/11/18 12:03 Resp 19 08/11/18 12:03 BP 129/59 08/11/18 12:03 Pulse Ox 96 08/11/18 12:03 Intake & Output 08/10/18 08/11/18 08/11/18 18:59 06:59 18:59 Intake Total 240 340 Balance 240 340 Intake: Oral 240 340 Other: Voiding Method Incontinent Incontinent Incontinent # Voids 2 - Exam General: [non toxic], [no distress], [appears at stated age] Derm: [warm], [dry] Head: [atraumatic], [normocephalic], [symmetric] Eyes: [EOMI], [no lid lag], [anicteric sclera] Mouth: [no lip lesion], [mucus membranes moist] Cardiovascular: [S1S2 reg], [no murmur], [positive DP pulse bilateral], Lungs: [Coarse breath sounds bilateral], [no rhonchi, no rales] , [no accessory muscle use] Abdominal: [soft], [ nontender to palpation], [no guarding], [no appreciable organomegaly] Ext: [no gross muscle atrophy], [2+ right lower extremity edema], [no contractures] Neuro: [no focal neuro deficits] Psych: [Alert], [oriented], [appropriate affect] - Labs CBC & Chem 7: 08/09/18 05:52 08/09/18 05:52 Assessment and Plan Assessment: Assessment and Plan 1. Renal mass: Likely metastatic malignancy, cause of abdominal pain. Seen on CT AP 07/2018 with hepatic metastasis. CXR shows small pleural effusions. Family and patient decision to pursue Hospice. [place] hosp[facility] pending, likely on Monday. Pain management with [place] 5 Q6H PRN, Morphine 2 mg IV Q4H PRN. Aggressive bowel regimen with Docusate 100 mg PO BID PRN. 2. HFpEF exacerbation: Echocardiogram shows EF 55-60%, severe LA enlargement with pleural + pericardial effusions. Off beta-[place] due to hypotension. Avoid IVF. O2 per NC to maintain O2 sat > 92%. Telemetry monitoring. FU Cardiology 3. Anemia: Hg 8.5 Hct 28.5 MCV 79.7. Likely secondary to metastatic disease. Avoid Fe supplementation due to constipation. Transfuse if Hg < 7.0. 4. GLORIA on CKD: BUN 45 Cr 1.55 GFR 41. Likely due to dehydration. Avoiding IVF due to pleural + pericardial effusions with ascites. Encourage PO hydration. Avoid nephrotoxins. 5. Atrial fibrillation: No AC due to GI bleeding. Telemetry monitoring. Keep Mg > 2 and K > 4. Avoid Beta blockers due to hypotension. 6. Transaminitis: T. Bili 3.2 AST 92. Likely secondary to metastatic disease to the liver. 7. Lower extremity wound 8. DVT/GI Prophylaxis: Lovenox 40 mg SUBCUT QD, Protonix 40 mg PO QAM. We'll start comfort care orders. Artificial tears. Atropine ophthalmic solution for excess secretions. Ativan as needed for anxiety. Scopolamine patch as needed for secretions. Patient and family decided on Hospice. Comfort care initiated. Patient is DNR/ DNI. Discussed with case management, no beds available today.
[2018-08-11 20:21] VITALS: BP 118/57; PULSE 115; RESP 20; TEMP 97.9
[2018-08-12] MEDS: ATROPINE OPHTH SOLN 1% 5ML BTL SUBLINGUAL PRN (05:28)
[2018-08-12] MEDS ORDERED: GLYCOPYRROLATE 0.2 MG/ML 2 ML VIAL IVP PRN (07:35)
[2018-08-12] MEDS: MORPHINE SULFATE 2 MG/ML SYRINGE IVP PRN (07:38)
== END 2018-08-12 15:21 | disposition expired | DRG 291 ==
LOC: EC 21:13 → 3SCARD 23:23 → 3NMEDONC 08-09 16:44
PROVIDERS: ADMIT Family Medicine; ATTEND Family Medicine
DX: I13.0 Hypertensive heart and chronic kidney disease with heart failure and stage 1 through stage 4 chronic kidney disease, or unspecified chronic kidney disease (principal); I50.33 Acute on chronic diastolic (congestive) heart failure; G92 Toxic encephalopathy; R40.2344 Coma scale, best motor response, flexion withdrawal, 24 hours or more after hospital admission; R40.2114 Coma scale, eyes open, never, 24 hours or more after hospital admission; R40.2214 Coma scale, best verbal response, none, 24 hours or more after hospital admission; C78.7 Secondary malignant neoplasm of liver and intrahepatic bile duct; I31.3 Pericardial effusion (noninflammatory); I48.1 Persistent atrial fibrillation; I48.92 Unspecified atrial flutter; N17.9 Acute kidney failure, unspecified; R18.8 Other ascites; D50.9 Iron deficiency anemia, unspecified; E86.0 Dehydration; E87.6 Hypokalemia; E88.09 Other disorders of plasma-protein metabolism, not elsewhere classified; I44.30 Unspecified atrioventricular block; I48.2 Chronic atrial fibrillation; K21.9 Gastro-esophageal reflux disease without esophagitis; K59.09 Other constipation; N18.9 Chronic kidney disease, unspecified; R62.7 Adult failure to thrive; C80.1 Malignant (primary) neoplasm, unspecified; Z51.5 Encounter for palliative care; S81.801A Unspecified open wound, right lower leg, initial encounter; Z66 Do not resuscitate; Z82.1 Family history of blindness and visual loss; Z82.3 Family history of stroke; Z85.46 Personal history of malignant neoplasm of prostate; Z86.718 Personal history of other venous thrombosis and embolism; Z87.442 Personal history of urinary calculi; Z87.891 Personal history of nicotine dependence; Z79.899 Other long term (current) drug therapy; Z88.8 Allergy status to other drugs, medicaments and biological substances; Z88.6 Allergy status to analgesic agent; Z88.1 Allergy status to other antibiotic agents; Z91.040 Latex allergy status
CPT/HCPCS: 36415; 71046; 80053; 82550; 82553; 83735; 83880; 84484; 85025; 85610; 85730; 93005; 93306; 96365; 96374; 99285